=== PATIENT | male | born 1960 | race Asian ===

== ENCOUNTER 2021-01-01 09:17 | Outpatient (REF) | payer OTHER, SELFPAY ==
[2021-01-01 10:22] LABS: Hematocrit 44.5 % (42-52); Mean Corpuscular HGB Conc 33.7 g/dl (31.0-36.0); Mean Corpuscular Hemoglobin 27.8 pg (27.0-33.0); Mean Corpuscular Volume 82.4 fL (80-98); Mean Platelet Volume 10.7 fL (9.4-12.4); Platelet Count 273 X10*3/uL (160-400); Red Cell Distribution Width 12.6 % (11.0-16.0); White Blood Count 7.6 X10*3/uL (4.8-10.8)
[2021-01-01 10:41] LABS: Alanine Aminotransferase 24 U/L (0-40); Albumin Level 4.5 g/dL (3.5-5.0); Alkaline Phosphatase 91 U/L (39-117); Anion Gap 11 (12-20); Aspartate Amino Transferase 20 U/L (5-37); Bilirubin Direct 0.4 mg/dL (0.0-0.5); Bilirubin Total 0.9 mg/dL (0.0-1.0); Blood Urea Nitrogen 14 mg/dL (9-16); Calcium 9.7 mg/dL (8.4-10.2); Carbon Dioxide 31 mmol/L (22-29); Chloride 98 mmol/L (96-108); Cholesterol 149 mg/dL; Estimated Glomerular Filt Rate > 60; Glucose Random 167 mg/dL (60-115); HDL Cholesterol 45 mg/dL; LDL Cholesterol Calculated 74 mg/dl; Sodium 136 mmol/L (135-145); Total Protein 7.4 g/dL (6.5-8.0); Triglycerides 154 mg/dL
[2021-01-01 11:02] LABS: Thyroid Stimulating Hormone 2.23 uIU/mL (0.32-4.0)
[2021-01-01 11:03] LABS: Glucose Urine UA NEG (NEG); Leukocyte Esterase Urine NEG (NEG); Nitrite Urine NEG (NEG); Specific Gravity - Urine 1.025 (1.005-1.025); Urine Blood NEG (NEG); Urine Ketones NEG (NEG); Urine Protein NEG (NEG-TRACE)
[2021-01-01 11:10] LABS: Appearance Urine CLEAR; Color Urine YELLOW
[2021-01-01 11:35] LABS: Creatinine Urine 170.37 mg/dL; Microalbum/Creatinine Ratio Ur 3.5 ug/mg cr
== END 2021-01-01 09:18 | disposition home or self-care (01) ==
LOC: HO.LAB 09:17
PROVIDERS: PCP Internal Medicine; Visit Provider Internal Medicine
DX: E11.9 Type 2 diabetes mellitus without complications (principal)
CPT/HCPCS: 36415; 80048; 80061; 80076; 81003; 82043; 84443; 85027

== ENCOUNTER 2021-01-23 08:01 | Outpatient (REF) | payer OTHER, SELFPAY ==
[2021-01-23 10:13] LABS: Alanine Aminotransferase 23 U/L (0-40); Aspartate Amino Transferase 19 U/L (5-37); Cholesterol 123 mg/dL; HDL Cholesterol 43 mg/dL; LDL Cholesterol Calculated 55 mg/dl; Triglycerides 128 mg/dL
== END 2021-01-23 08:02 | disposition home or self-care (01) ==
LOC: HO.LAB 08:01
PROVIDERS: PCP Internal Medicine; Visit Provider Internal Medicine Cardiovascular Disease
DX: I25.10 Atherosclerotic heart disease of native coronary artery without angina pectoris (principal)
CPT/HCPCS: 36415; 80061; 84450; 84460

== ENCOUNTER 2022-02-09 10:42 | Outpatient (REF) | payer OTHER, SELFPAY ==
[2022-02-09 11:22] LABS: Hematocrit 44.8 % (42.0-52.0); Hemoglobin 14.8 g/dl (14.0-18.0); Mean Corpuscular Hemoglobin 27.6 pg (27.0-33.0); Mean Corpuscular Volume 83.6 fL (80.0-98.0); Mean Platelet Volume 10.2 fL (9.4-12.4); Platelet Count 245 X10*3/uL (160-400); Red Blood Count 5.36 X10*6/uL (4.60-5.80); Red Cell Distribution Width 13.1 % (11.0-16.0); White Blood Count 5.8 X10*3/uL (4.8-10.8)
[2022-02-09 11:25] LABS: Appearance Urine CLEAR; Color Urine YELLOW; Glucose Urine UA 500 MG/DL (NEG); Leukocyte Esterase Urine NEG (NEG); Nitrite Urine NEG (NEG); PH 6.5 (5.0-8.0); Specific Gravity - Urine 1.015 (1.005-1.025); Urine Blood NEG (NEG); Urine Ketones NEG (NEG); Urine Protein NEG (NEG-TRACE)
[2022-02-09 11:38] LABS: Estimated Average Glucose 157 mg/dL; Hemoglobin A1c % 7.1 %
[2022-02-09 11:58] LABS: Creatinine Urine 104.59 mg/dL; Microalbumin Urine < 5.0 mg/L
[2022-02-09 12:12] LABS: Alanine Aminotransferase 32 U/L (0-40); Albumin Level 4.4 g/dL (3.5-5.0); Alkaline Phosphatase 81 U/L (39-117); Anion Gap 9 (12-20); Aspartate Amino Transferase 29 U/L (5-37); Bilirubin Direct 0.3 mg/dL (0.0-0.5); Bilirubin Total 0.7 mg/dL (0.0-1.0); Blood Urea Nitrogen 16 mg/dL (9-16); Calcium 9.1 mg/dL (8.4-10.2); Carbon Dioxide 31 mmol/L (22-29); Chloride 101 mmol/L (96-108); Cholesterol 160 mg/dL; Estimated Glomerular Filt Rate > 60; Glucose Random 134 mg/dL (60-115); HDL Cholesterol 34 mg/dL; LDL Cholesterol Calculated 98 mg/dl; Potassium 4.1 mmol/L (3.3-5.1); Sodium 137 mmol/L (135-145); Total Protein 7.3 g/dL (6.5-8.0); Triglycerides 143 mg/dL
[2022-02-09 12:17] LABS: Thyroid Stimulating Hormone 1.28 uIU/mL (0.32-4.0)
== END 2022-02-09 10:43 | disposition home or self-care (01) ==
LOC: HO.LAB 10:42
PROVIDERS: PCP Internal Medicine; Visit Provider Internal Medicine
DX: Z00.00 Encounter for general adult medical examination without abnormal findings (principal); E78.00 Pure hypercholesterolemia, unspecified; F33.2 Major depressive disorder, recurrent severe without psychotic features; I10 Essential (primary) hypertension; E11.9 Type 2 diabetes mellitus without complications
CPT/HCPCS: 36415; 80048; 80061; 80076; 81003; 82043; 83036; 84443; 85027

== ENCOUNTER → 2022-04-15 09:04 | Outpatient (BNVA) | payer OTHER, SELFPAY | PROVIDERS: PCP Internal Medicine; Visit Provider Nurse Practitioner | DX: Z01.818 Encounter for other preprocedural examination (principal) | CPT/HCPCS: 99202 ==

== ENCOUNTER 2022-08-17 10:35 | Outpatient (REF) | payer OTHER, SELFPAY ==
[2022-08-17 11:45] LABS: Hematocrit 46.5 % (42.0-52.0); Hemoglobin 15.6 g/dl (14.0-18.0); Mean Corpuscular HGB Conc 33.5 g/dl (31.0-36.0); Mean Corpuscular Hemoglobin 28.3 pg (27.0-33.0); Mean Corpuscular Volume 84.4 fL (80.0-98.0); Platelet Count 264 X10*3/uL (160-400); Red Blood Count 5.51 X10*6/uL (4.60-5.80); Red Cell Distribution Width 12.6 % (11.0-16.0); White Blood Count 6.7 X10*3/uL (4.8-10.8)
[2022-08-17 12:22] LABS: Creatinine Urine 18.84 mg/dL; Microalbumin Urine < 5.0 mg/L
[2022-08-17 12:37] LABS: Alanine Aminotransferase 31 U/L (0-40); Albumin Level 4.5 g/dL (3.5-5.0); Alkaline Phosphatase 88 U/L (39-117); Anion Gap 11 (12-20); Aspartate Amino Transferase 25 U/L (5-37); Bilirubin Direct 0.4 mg/dL (0.0-0.5); Bilirubin Total 0.9 mg/dL (0.0-1.0); Blood Urea Nitrogen 15 mg/dL (9-16); Calcium 9.3 mg/dL (8.4-10.2); Carbon Dioxide 31 mmol/L (22-29); Chloride 99 mmol/L (96-108); Cholesterol 164 mg/dL; Estimated Glomerular Filt Rate > 60; Glucose Random 238 mg/dL (60-115); HDL Cholesterol 43 mg/dL; LDL Cholesterol Calculated 89 mg/dl; Sodium 137 mmol/L (135-145); Total Protein 7.4 g/dL (6.5-8.0); Triglycerides 163 mg/dL
[2022-08-17 13:00] LABS: Thyroid Stimulating Hormone 1.69 uIU/mL (0.32-4.0)
== END 2022-08-17 10:36 | disposition home or self-care (01) ==
LOC: HO.LAB 10:35
PROVIDERS: PCP Internal Medicine; Visit Provider Internal Medicine
DX: I10 Essential (primary) hypertension (principal); E11.9 Type 2 diabetes mellitus without complications
CPT/HCPCS: 36415; 80048; 80061; 80076; 82043; 84443; 85027

== ENCOUNTER 2022-08-19 08:49 | Day surgery (SDC) | payer OTHER, SELFPAY ==
[2022-08-17 11:10] VITALS: BMI 26.6
--- NOTE | 2022-08-18 08:53 | HO.ANESPROP2 ---
Documented by User: Wilma Vargas NP 08/18/22 13:26 HPI - Anesthesia Eval Consult details Narrative: 61yo M for Colonoscopy Recent [facility] ED visit with headache and elevated BP. Seen by PCP and increased valsartan. Hx cardiac stent - plavix a couple years ago , pending note from [facility] Active Problems Active Problems: All Active Problems (Updated 06/27/22 @ 07:45 by Luis Pitts MD) Erectile dysfunction (Acute) Pre-op examination (Acute) Endogenous depression (Acute) Annual physical exam (Acute) GERD (gastroesophageal reflux disease) (Acute) Borderline hypercholesterolemia (Acute) Essential (primary) hypertension (Acute) Diabetes mellitus (Acute) Coronary artery disease (Acute) Past Medical History Medical History Annual physical exam Borderline hypercholesterolemia Coronary artery disease Diabetes mellitus Essential (primary) hypertension GERD (gastroesophageal reflux disease) Family History Family History Mother No problems noted. Father No problems noted. Surgical History Surgical History (Updated 08/19/22 @ 10:36 by Patricia Oakes MD) H/O hernia repair History of heart artery stent Social History Social History Housing: House Alcohol intake: never Patient Tobacco Use Status: Never used Tobacco e-Cigarette/Vaping Use: Never Used Second Hand Smoke Exposure: No Use of substances other than those prescribed or required for medical reasons: No Are you DNR?: No Advance Directives: No Advance Directives Information Provided: Yes service: No Current occupational status: unemployed Cognitive needs: No Hearing needs: No Vision needs: No Meds Allergies Allergy/AdvReac Type Severity Reaction Status Date / Time No Known Allergies Allergy Verified 08/05/22 14:01 Home Medications Medication Instructions Recorded Confirmed Last Taken Type blood sugar diagnostic (FreeStyle #10 ea 04/15/22 Unknown History Lite Strips) lancets 28 gauge (FreeStyle #100 ea 04/15/22 Unknown History Lancets) nitroglycerin 0.3 mg sublingual 0.3 mg sublingual DIRECTED PRN 04/15/22 08/19/22 Unknown History tablet Chest Pain Exam Exam Date and Time: August 18, 2022 0853 Height,Weight and Vital Signs: Height 5 ft 6 in Weight 74.843 kg Narrative Narrative: Laboratory Tests 08/17/22 08/17/22 10:51 10:51 WBC 6.7 Hgb 15.6 Hct 46.5 Plt Count 264 Sodium 137 Potassium 4.0 Chloride 99 Carbon Dioxide 31 H BUN 15 Creatinine 1.03 EKG 2020 NSR LAD Incomplete RBBB Septal infarct Assessment and Plan Assessment Anesthesia Assessment: Chart Reviewed Documented by User: Patricia Oakes MD 08/19/22 11:05 HPI - Anesthesia Eval Consult details Narrative: 61yo M for Colonoscopy Recent [facility] ED visit with headache and elevated BP. Seen by PCP and increased valsartan. functional status more than 4 mets Hx cardiac stent - plavix a couple years ago , pending note from [facility] Active Problems Active Problems: All Active Problems (Updated 06/27/22 @ 07:45 by Luis Pitts MD) Erectile dysfunction (Acute) Pre-op examination (Acute) Endogenous depression (Acute) Annual physical exam (Acute) GERD (gastroesophageal reflux disease) (Acute) Borderline hypercholesterolemia (Acute) Essential (primary) hypertension (Acute) Diabetes mellitus (Acute) Coronary artery disease (Acute). Stent x1 and againx1 2 years ago. On plavix. Did not stop. Never used SL NTG. H/o silent PA Past Medical History Medical History Annual physical exam Borderline hypercholesterolemia Coronary artery disease Diabetes mellitus Essential (primary) hypertension GERD (gastroesophageal reflux disease) Family History Family History Mother No problems noted. Father No problems noted. Family history of problems with anesthesia: No Surgical History Surgical History (Updated 08/19/22 @ 10:36 by Patricia Oakes MD) H/O hernia repair History of heart artery stent History of Problems with Anesthesia: No Social History Social History Housing: House Alcohol intake: never Patient Tobacco Use Status: Never used Tobacco e-Cigarette/Vaping Use: Never Used Second Hand Smoke Exposure: No Use of substances other than those prescribed or required for medical reasons: No Are you DNR?: No Advance Directives: No Advance Directives Information Provided: Yes service: No Current occupational status: unemployed Cognitive needs: No Hearing needs: No Vision needs: No Meds Allergies Allergy/AdvReac Type Severity Reaction Status Date / Time No Known Allergies Allergy Verified 08/05/22 14:01 Home Medications Medication Instructions Recorded Confirmed Last Taken Type blood sugar diagnostic (FreeStyle #10 ea 04/15/22 Unknown History Lite Strips) lancets 28 gauge (FreeStyle #100 ea 04/15/22 Unknown History Lancets) nitroglycerin 0.3 mg sublingual 0.3 mg sublingual DIRECTED PRN 04/15/22 08/19/22 Unknown History tablet Chest Pain Exam Height,Weight and Vital Signs: Height 5 ft 6 in Weight 74.843 kg Vital Signs Temp Pulse Resp BP Pulse Ox O2 Del Method 08/19/22 09:42 97.6 F 88 16 164/99 H 97 Room Air Pertinent Lab Results Pertinent Lab Results: Lab Results 08/19/22 Range/Units 09:54 POC Glucose 148 H (60-115) mg/dL Airway Mallampati Class: III TM Dist: >3cm Neck ROM: Full Loose/Missing/Broken Teeth: No (Permanent bridge. Denies broken, loose, missing teeth) Heart: RRR Lungs: CTAB Assessment and Plan Assessment Anesthesia Assessment: Anesthesia Plan Discussed Final Anesthetic Review Family History of Problems with Anesthesia: No History of Problems with Anesthesia: No NPO: Yes ASA Class: III Final Preanesthetic Review: No Changes in Pt Med Stat, Meds/Allgs Chart Reviewed, Consent Obtained/Reviewed and Anes Risks/Benef Reviewed Patient Risk: Intermediate Procedure Risk: Low Assessment/Block/Sedation in SS: Assess/Block/Sedation-SS Anesthetic Plan Anesthetic Plan: MAC: Disposition: Standard PACU
[2022-08-19 09:17] VITALS: BMI 26.9
--- NOTE | 2022-08-19 09:18 | P.OP_ITS ---
Operative Note Operative Note Date of Service: 08/19/22 Narrative: Operative Information Procedure Description: Colonoscopy Indication: screening Anesthesia: MAC COLONOSCOPY Instrument: Olympus variable stiffness pediatric scope 190L Colonoscopy Monitoring: Vital signs and clinical assessment, continuous EKG monitoring, Pulse oximetry, Carbon Dioxide monitoring and blood pressure monitoring were done throughout the procedure. Colon withdrawal time was 7 minutes. Procedure: The patient was placed in the left lateral decubitis position and pre-procedure medications were administered. After a digital rectal examination of the ano-rectum, the video colonoscope was inserted into the rectum and advanced through the colon to the cecum/TI. The colonoscope was slowly withdrawn in a retrograde panoramic fashion and the colon mucosa was carefully examined including a retroflexed view of the rectum. Findings and interventions are described below. Procedure Difficulty: easy Findings: Terminal Ileum-normal Cecum:normal Ascending Colon: normal Transverse Colon -normal Descending Colon:normal Sigmoid Colon: normal Rectum: Retroflexion with small internal hemorrhoids, grade I Anorectum - normal Colon preparation: [place] Bowel Preparation Scale Right colon; 2 Transverse colon: 3 Left colon; 3 (0 = Unprepared colon segment with mucosa not seen due to solid stool that cannot be cleared. 1 = Portion of mucosa of the colon segment seen, but other areas of the colon segment not well seen due to staining, residual stool and/or opaque liquid. 2 = Minor amount of residual staining, small fragments of stool and/or opaque liquid, but mucosa of colon segment seen well. 3 = Entire mucosa of colon segment seen well with no residual staining, small fragments of stool or opaque liquid) Impression and Post Procedure Diagnosis: internal hemorrhoids Plan: High fiber diet leaflet Avoid straining at stool, epsom salts and sitz bath, anusol supps or cream Repeat Colonoscopy in 10 years or earlier if clinically indicated Above findings were reviewed with the patient and relevant handouts were provided if indicated.
--- NOTE | 2022-08-19 09:18 | MHC.SHP ---
Pre-Procedural Eval Section A Date of Service: 08/19/22 Section B Chief Complaint: screening Relevant Family History (Specify if Yes): No Relevant Social History: None Present Medications: see Short Stay Collaborative assessment Medical History: Significant History (Borderline hypercholesterolemia Coronary artery disease Diabetes mellitus Essential (primary) hypertension GERD (gastroesophageal reflux disease)) History of Previous Operations: No relevant previous surgery Allergies: Allergies Allergy/AdvReac Type Severity Reaction Status Date / Time No Known Allergies Allergy Verified 08/05/22 14:01 Review of Systems Sugical H&P ROS: Negative: Constitution, Cardiovascular, Respiratory, Neurological, Psychiatric, Hem-Onc, Allergic/Immunologic, Gastrointestinal, Genitourinary, Musculoskeletal, Integumentary, Endocrine and Eyes/Ears/Nose/Throat Exam Surgical H&P Exam: Normal: HEENT, Normal: Heart, Normal: Lungs, Normal: Extremities, Normal: Abdomen, Normal: Skin and Normal: Neurological Plan Diagnosis/Plan: Unchanged I have reviewed the history and physical and performed a pertinent physical examination on my patient. No changes have occurred unless specified. Time Spent With Patient Time: Total time managing care of this patient today ____ minutes.
--- NOTE | 2022-08-19 09:24 | PC.NURSE ---
md escobar aware of patient taking plavix yesterday. ok to proceed.
[2022-08-19 09:42] VITALS: BP 164/99; PULSE 88; RESP 16; TEMP 36.4; O2SAT 97
[2022-08-19] MEDS: Lactated Ringers 1,000 ML 100 ML IVCONT (09:58)
[2022-08-19 10:02] LABS: Glucose, Whole Blood 148 mg/dL (60-115)
[2022-08-19 11:03] VITALS: BP 131/71; PULSE 74; RESP 18; TEMP 36.6; O2SAT 97
[2022-08-19 11:18] VITALS: BP 137/78; PULSE 71; RESP 16; O2SAT 97
[2022-08-19 11:33] VITALS: BP 163/89; PULSE 68; RESP 16; TEMP 36.6; O2SAT 95
== END 2022-08-19 12:04 | disposition home or self-care (01) ==
PROVIDERS: PCP Internal Medicine; Visit Provider Internal Medicine Gastroenterology
PROC: 0DJD8ZZ Inspection of Lower Intestinal Tract, Via Natural or Artificial Opening Endoscopic (ICD-10-PCS; CPT 45378; principal; 2022-08-19 10:20)
DX: Z12.11 Encounter for screening for malignant neoplasm of colon (principal); K64.0 First degree hemorrhoids; K21.9 Gastro-esophageal reflux disease without esophagitis; I25.10 Atherosclerotic heart disease of native coronary artery without angina pectoris; Z98.61 Coronary angioplasty status; I10 Essential (primary) hypertension; E78.00 Pure hypercholesterolemia, unspecified; E11.9 Type 2 diabetes mellitus without complications; Z79.84 Long term (current) use of oral hypoglycemic drugs; Z79.899 Other long term (current) drug therapy
CPT/HCPCS: 45378; 82947

== ENCOUNTER → 2022-09-14 10:02 | Outpatient (BNVA) | payer OTHER, SELFPAY | PROVIDERS: PCP Internal Medicine; Visit Provider Nurse Practitioner | DX: K64.8 Other hemorrhoids (principal); Z98.890 Other specified postprocedural states | CPT/HCPCS: 99212 ==

== ENCOUNTER 2022-11-15 09:13 | Outpatient (REF) | payer OTHER, SELFPAY ==
[2022-11-15 10:45] LABS: Estimated Average Glucose 163 mg/dL; Hemoglobin A1c % 7.3 %
== END 2022-11-15 09:14 | disposition home or self-care (01) ==
LOC: HO.LAB 09:13
PROVIDERS: PCP Internal Medicine; Visit Provider Internal Medicine
DX: E11.9 Type 2 diabetes mellitus without complications (principal)
CPT/HCPCS: 36415; 83036

== ENCOUNTER 2023-03-02 08:33 | Outpatient (AMB) | payer OTHER, SELFPAY ==
[2023-03-02 08:45] VITALS: BP 130/70; PULSE 71; O2SAT 94; BMI 27.3
--- NOTE | 2023-03-02 08:45 | A.OFFPC_ITS ---
Vital Signs 03/02/23 08:45 Height 5 ft 6 in Weight 169 lb BMI 27.3 BP 130/70 Blood Pressure Location Lt brachial Position Sitting Pulse 71 Pulse Source Pulse Oximeter Pulse Oximetry (%) 94 Oxygen Delivery Method Room Air Intake Visit Reasons: PE Intake Note: Patient is here today for a physical. Complaint of numbness on part of left knee, difficulty standing and walking, pain in left shoulder as well. Requesting medication refill. [employer] Pump Tender Required: Yes [employer] Pump Tender Name: Phil Bonilla (Son) Information Interpreted: non-clinical & clinical Deal Architect: Present Accompanied by: Son Allergies No Known Allergies Allergy (Verified 03/02/23 09:24) Medication List - Last Reconciled 03/02/23 by Luis Pitts MD atorvastatin 80 mg PO DAILY blood sugar diagnostic (FreeStyle Lite Strips) As directed blood-glucose meter (FreeStyle [place] kit) To be tested one time daily carvedilol 6.25 mg PO BID clopidogrel 75 mg PO DAILY duloxetine 30 mg PO DAILY gabapentin 300 mg PO TID glipizide 5 mg PO DAILY hydrochlorothiazide 25 mg PO DAILY lancets (FreeStyle Lancets) As directed metformin 500 mg PO BID multivitamin (Daily-Jesse tablet) 1 tab PO DAILY nitroglycerin 0.3 mg sublingual DIRECTED PRN pantoprazole 40 mg PO DAILY sitagliptin phosphate (Januvia) 100 mg PO DAILY valsartan 320 mg PO DAILY Tobacco use date assessed: 03/02/23 Dental Screening Dental Screen Date: 03/02/23 Did you have a dental visit in the last 12 months?: Yes Did you have a dental problem in the last 6 months where you did not have access to dental care?: No Was dental information given to patient?: Patient has dentist HPI PE HPI Details 62-year-old male presents to the office for an annual physical. In addition, patient has a variety of complaints. He has a burning sensation on the left knee. He reports that his knee locks at times. He has more increased burning sensation in the left leg. Occasionally, he is also bleeding for near the mouth. He wonders if it is the Plavix he is taking. Able to function and do activities of daily living. [facility] Medical History Annual physical exam Borderline hypercholesterolemia Coronary artery disease Diabetes mellitus Essential (primary) hypertension GERD (gastroesophageal reflux disease) Surgical History H/O hernia repair History of heart artery stent Family History Mother No problems noted. Father No problems noted. Social History Housing: House Alcohol intake: never Patient Tobacco Use Status: Never used Tobacco e-Cigarette/Vaping Use: Never Used Second Hand Smoke Exposure: No service: No Current occupational status: employed Current occupational exposures/hazards: No Cognitive needs: No Hearing needs: No Vision needs: No Questionnaire Thrive Questionnaire Date Thrive assessed: 10/20/22 JEANETTE-7 AMB Questionnaire JEANETTE-7 Date JEANETTE - 7 assessed: 10/20/22 Source: Developed by Drs. Ck Orantes, Darby Henderson, Maco Ken and colleagues, with an educational brock from [employer]. Physical exam (Primary Care) Vital Signs: Last Vital Signs Pulse 71 03/02/23 08:45 BP 130/70 03/02/23 08:45 Pulse Ox 94 03/02/23 08:45 Oxygen Delivery Method Room Air 03/02/23 08:45 Care Plan Goal for BP management: Blood pressure is in range. BMI result Body Mass Index 27.3 Tobacco/Smoking Status: Tobacco use Status Tobacco use date assessed 03/02/23 03/02/23 08:58 Patient Tobacco Use Status Never used Tobacco 03/02/23 08:58 e-Cigarette/Vaping Use Never Used 03/02/23 08:58 Thrive Assessment: Date of Thrive Assessment Date Thrive assessed 10/20/22 03/02/23 08:58 Advance Care Planning discussion: Exists, not on file Date of discussion: 03/02/23 Who was present: Patient and his son Forms completed: MOLST Time spent: 1-15 minutes, not on file Actual minutes spent: 5 Const General: cooperative, healthy appearing and comfortable HENMT Head: Yes normal to inspection and Yes atraumatic Eyes General: appearance normal, both eyes and all related structures Neck Neck: Yes normal visual inspection and Yes full ROM Chest Chest palpation & inspection: normal inspection of the chest Resp Effort & Inspection: normal respiratory effort Auscultation: clear to auscultation bilaterally Cardio Jugular venous distension: no JVD Palpation: normal PMI Rate: regular rate Heart sounds: S1 normal heart sound present and S2 normal heart sound present GI Palpation (GI): Soft to palpation and No hepatosplenomegaly present Extrem General: Yes normal to inspection and Yes full ROM Results AMB Hemoglobin A1c AMB Hemoglobin A1c 6.9 % Last Edit by MARCEL Lao on 03/02/23 08:58 Results Reviewed Results Reviewed: Laboratory Last Values Hgb A1c (Clinic) 6.9 % (4.0-6.0) H 03/02/23 08:44 Assessment and Plan Assessment & Plan (1) Endogenous depression: Code(s): F33.2 - Major depressive disorder, recurrent severe without psychotic features Plan: Condition is stable continue current medications. (2) Diabetes mellitus: Code(s): E11.9 - Type 2 diabetes mellitus without complications Qualifiers: Diabetes mellitus complication status: without complication Diabetes mellitus prison insulin use: without superintendent container terminal use Diabetes mellitus type: type 2 Qualified Code(s): E11.9 - Type 2 diabetes mellitus without complications Plan: Point A1c is in range. Blood work has been ordered. (3) Essential (primary) hypertension: Code(s): I10 - Essential (primary) hypertension Plan: Blood pressure is in range. Continue current medications. (4) Osteoarthritis of left knee: Code(s): M17.12 - Unilateral primary osteoarthritis, left knee Plan: X-ray of the knee ordered. Will call with results. (5) Gingivitis: Code(s): K05.10 - Chronic gingivitis, plaque induced Plan: Continue the Plavix. Orders: Orders Basic Metabolic Panel Today E11.9 - Type 2 diabetes mellitus without complications, F33.2 - Major depressive disorder, recurrent severe without psychotic features, I10 - Essential (primary) hypertension Lipid Panel Today E11.9 - Type 2 diabetes mellitus without complications, F33.2 - Major depressive disorder, recurrent severe without psychotic features, I10 - Essential (primary) hypertension Liver Panel Today E11.9 - Type 2 diabetes mellitus without complications, F33.2 - Major depressive disorder, recurrent severe without psychotic features, I10 - Essential (primary) hypertension Thyroid Stimulating Hormone Today E11.9 - Type 2 diabetes mellitus without complications, F33.2 - Major depressive disorder, recurrent severe without psychotic features, I10 - Essential (primary) hypertension Microalbumin, Random (w Creat) Today E11.9 - Type 2 diabetes mellitus without complications, F33.2 - Major depressive disorder, recurrent severe without psychotic features, I10 - Essential (primary) hypertension Complete Blood Count no Diff Today E11.9 - Type 2 diabetes mellitus without complications, F33.2 - Major depressive disorder, recurrent severe without psychotic features, I10 - Essential (primary) hypertension UA and rflx microscopic Today E11.9 - Type 2 diabetes mellitus without complications, F33.2 - Major depressive disorder, recurrent severe without psychotic features, I10 - Essential (primary) hypertension Medications: Refilled hydrochlorothiazide 25 mg PO DAILY 90 tabs 1RF Coding Level of Care Code Est Pt Level 4 (90833) Est Pt Prev Care 40-64y(73518) Diagnoses Endogenous depression F33.2 Diabetes mellitus E11.9 Diabetes mellitus complication status: without complication Diabetes mellitus prison insulin use: without superintendent container terminal use Diabetes mellitus type: type 2 Essential (primary) hypertension I10 Osteoarthritis of left knee M17.12 Gingivitis K05.10 Additional Codes Vital Signs *Quality* - Advance Care Planning discussion: Exists, not on file ([id number]) Vital Signs *Quality* - Time spent: 1-15 minutes, not on file ([id number])
== END 2023-03-02 09:19 | disposition home or self-care (01) ==
PROVIDERS: Visit Provider Internal Medicine
DX: Z00.00 Encounter for general adult medical examination without abnormal findings (principal); F33.2 Major depressive disorder, recurrent severe without psychotic features; E11.9 Type 2 diabetes mellitus without complications; I10 Essential (primary) hypertension; M17.12 Unilateral primary osteoarthritis, left knee; K05.10 Chronic gingivitis, plaque induced
CPT/HCPCS: 1124F; 83036; 99396

== ENCOUNTER 2023-03-08 07:56 | Outpatient (REF) | payer OTHER, SELFPAY ==
[2023-03-08 08:53] LABS: Hematocrit 45.4 % (42.0-52.0); Hemoglobin 15.2 g/dl (14.0-18.0); Mean Corpuscular HGB Conc 33.5 g/dl (31.0-36.0); Mean Corpuscular Volume 83.6 fL (80.0-98.0); Mean Platelet Volume 10.3 fL (9.4-12.4); Platelet Count 256 X10*3/uL (160-400); Red Blood Count 5.43 X10*6/uL (4.60-5.80); Red Cell Distribution Width 12.9 % (11.0-16.0); White Blood Count 7.6 X10*3/uL (4.8-10.8)
[2023-03-08 09:31] LABS: Alanine Aminotransferase 29 U/L (0-40); Albumin Level 4.1 g/dL (3.5-5.0); Alkaline Phosphatase 87 U/L (39-117); Anion Gap 9 (12-20); Aspartate Amino Transferase 25 U/L (5-37); Bilirubin Direct 0.3 mg/dL (0.0-0.5); Bilirubin Total 0.7 mg/dL (0.0-1.0); Blood Urea Nitrogen 13 mg/dL (9-16); Calcium 8.9 mg/dL (8.4-10.2); Carbon Dioxide 30 mmol/L (22-29); Chloride 103 mmol/L (96-108); Cholesterol 144 mg/dL; Estimated Glomerular Filt Rate > 60; Glucose Random 157 mg/dL (60-115); HDL Cholesterol 41 mg/dL; LDL Cholesterol Calculated 61 mg/dl; Potassium 3.7 mmol/L (3.3-5.1); Sodium 138 mmol/L (135-145); Total Protein 7.1 g/dL (6.5-8.0); Triglycerides 213 mg/dL
[2023-03-08 09:46] LABS: Thyroid Stimulating Hormone 1.46 uIU/mL (0.32-4.0)
[2023-03-08 10:48] LABS: Appearance Urine Clear; Color Urine Yellow; Glucose Urine UA Negative (Negative); Leukocyte Esterase Urine Negative (Negative); Nitrite Urine Negative (Negative); Urine Blood Negative (Negative); Urine Ketones Negative (Negative); Urine Protein Negative (Neg-Trace)
[2023-03-08 11:46] LABS: Creatinine Urine 89.16 mg/dL; Microalbumin Urine < 5.0 mg/L
== END 2023-03-08 07:57 | disposition home or self-care (01) ==
LOC: HO.LAB 07:56
PROVIDERS: PCP Internal Medicine; Visit Provider Internal Medicine
DX: E11.9 Type 2 diabetes mellitus without complications (principal); F33.2 Major depressive disorder, recurrent severe without psychotic features; I10 Essential (primary) hypertension
CPT/HCPCS: 36415; 80048; 80061; 80076; 81003; 82043; 84443; 85027

== ENCOUNTER 2023-03-24 07:58 | Outpatient (AMB) | payer OTHER, SELFPAY ==
[2023-03-24 07:59] VITALS: BP 148/78; PULSE 83; O2SAT 97; BMI 27.4
--- NOTE | 2023-03-24 07:59 | A.OFFPC_ITS ---
Vital Signs 03/24/23 07:59 Height 5 ft 6 in Weight 170 lb BMI 27.4 BP 148/78 H Blood Pressure Location Lt brachial Position Sitting Pulse 83 Pulse Source Pulse Oximeter Pulse Oximetry (%) 97 Oxygen Delivery Method Room Air Intake Visit Reasons: Heart Surgery Discuss Allergies No Known Allergies Allergy (Verified 03/24/23 08:27) Medication List - Last Reconciled 03/24/23 by Luis Pitts MD atorvastatin 80 mg PO DAILY blood sugar diagnostic (FreeStyle Lite Strips) As directed blood-glucose meter (FreeStyle [place] kit) To be tested one time daily carvedilol 6.25 mg PO BID clopidogrel 75 mg PO DAILY duloxetine 30 mg PO DAILY gabapentin 300 mg PO TID glipizide 5 mg PO DAILY hydrochlorothiazide 25 mg PO DAILY lancets (FreeStyle Lancets) As directed metformin 500 mg PO BID multivitamin (Daily-Jesse tablet) 1 tab PO DAILY nitroglycerin 0.3 mg sublingual DIRECTED PRN pantoprazole 40 mg PO DAILY sitagliptin phosphate (Januvia) 100 mg PO DAILY valsartan 320 mg PO DAILY Tobacco use date assessed: 03/02/23 Dental Screening Dental Screen Date: 03/24/23 Did you have a dental visit in the last 12 months?: No Did you have a dental problem in the last 6 months where you did not have access to dental care?: No Was dental information given to patient?: Patient has dentist HPI Heart Surgery Discuss HPI Details 62-year-old male presents to the office to discuss his medical issues. He made the appointment stating he wanted to discuss heart surgery. However when patient came here he has no complaints about the heart. He is complaining of pain in the left arm. The pain is constant and all the time. Pain is reproducible and gets worse on palpating the deltoid muscle. Patient is also looking for a cream to apply on his cracked heels and would like a medication for erectile dysfunction. [facility] Medical History Annual physical exam Borderline hypercholesterolemia Coronary artery disease Diabetes mellitus Essential (primary) hypertension GERD (gastroesophageal reflux disease) Surgical History H/O hernia repair History of heart artery stent Family History Mother No problems noted. Father No problems noted. Social History Housing: House Alcohol intake: never Patient Tobacco Use Status: Never used Tobacco e-Cigarette/Vaping Use: Never Used Second Hand Smoke Exposure: No service: No Current occupational status: employed Current occupational exposures/hazards: No Cognitive needs: No Hearing needs: No Vision needs: No Questionnaire PHQ-9 Over the last 2 weeks, how often have you been bothered by any of the following problems? 1. Little interest or pleasure in doing things: not at all 2. Feeling down, depressed, or hopeless: not at all 3. Trouble falling or staying asleep, or sleeping too much: not at all 4. Feeling tired or having little energy: not at all 5. Poor appetite or overeating: not at all 6. Feeling bad about yourself - or that you are a failure or have let yourself or your family down: not at all 7. Trouble concentrating on things, such as reading the newspaper or watching television: not at all 8. Moving or speaking so slowly that other people could have noticed. Or the opposite - being so fidgety or restless that you have been moving around a lot more than usual: not at all 9. Thoughts that you would be better off or of hurting yourself in some way: not at all Total score: 0 Depression Screening Interpretation: Negative Source: Developed by Drs. Ck Orantes, Darby Henderson, Maco Ken and colleagues, with an educational brock from [employer]. Thrive Questionnaire Date Thrive assessed: 10/20/22 AUDIT C Alcohol Use Questionnaire (AUDIT-C) 1. How often do you have a drink containing alcohol?: Never Total Score: 0 JEANETTE-7 AMB Questionnaire JEANETTE-7 Date JEANETTE - 7 assessed: 10/20/22 Source: Developed by Drs. Ck Orantes, Darby Henderson, Maco Ken and colleagues, with an educational brock from [employer]. Physical exam (Primary Care) Vital Signs: Last Vital Signs Pulse 83 03/24/23 07:59 BP 148/78 H 03/24/23 07:59 Pulse Ox 97 03/24/23 07:59 Oxygen Delivery Method Room Air 03/24/23 07:59 BMI result Body Mass Index 27.4 Tobacco/Smoking Status: Tobacco use Status Tobacco use date assessed 03/02/23 03/24/23 08:03 Patient Tobacco Use Status Never used Tobacco 03/24/23 08:03 e-Cigarette/Vaping Use Never Used 03/24/23 08:03 PHQ-9: PHQ-9 Score PHQ-9: Total score 0 03/24/23 08:03 Depression Screening Interpretation: Negative Thrive Assessment: Date of Thrive Assessment Date Thrive assessed 10/20/22 03/24/23 08:03 Const General: cooperative, healthy appearing and comfortable HENMT Head: Yes normal to inspection and Yes atraumatic Eyes General: appearance normal, both eyes and all related structures Neck Neck: Yes normal visual inspection and Yes full ROM Chest Chest palpation & inspection: normal inspection of the chest Resp Effort & Inspection: normal respiratory effort Auscultation: clear to auscultation bilaterally Cardio Jugular venous distension: no JVD Palpation: normal PMI Rate: regular rate Heart sounds: S1 normal heart sound present and S2 normal heart sound present GI Palpation (GI): Soft to palpation and No hepatosplenomegaly present Extrem General: Yes normal to inspection and Yes full ROM Assessment and Plan Assessment & Plan (1) Left arm pain: Code(s): M79.602 - Pain in left arm Plan: Pain is muscular in etiology. Patient was advised to take [id number] medication. Hydrocortisone cream has been prescribed for the feet. (2) Erectile dysfunction: Code(s): N52.9 - Male erectile dysfunction, unspecified Plan: Cialis has been prescribed. Coding Level of Care Code Est Pt Level 3 (36471) Diagnoses Left arm pain M79.602 Erectile dysfunction N52.9
== END 2023-03-24 10:08 | disposition home or self-care (01) ==
PROVIDERS: PCP Internal Medicine; Visit Provider Internal Medicine
DX: M79.602 Pain in left arm (principal); N52.9 Male erectile dysfunction, unspecified
CPT/HCPCS: 99213

== ENCOUNTER 2023-06-09 08:58 | Outpatient (AMB) | payer OTHER, SELFPAY ==
--- NOTE | 2023-06-09 09:12 | A.OFFPC_ITS ---
Vital Signs 06/09/23 09:13 06/09/23 09:25 Height 5 ft 6 in Weight 171 lb 2 oz BMI 27.6 BP 160/90 H 120/72 Blood Pressure Location Lt brachial Lt brachial Position Sitting Sitting Pulse 78 Pulse Source Pulse Oximeter Pulse Oximetry (%) 97 Oxygen Delivery Method Room Air Intake Visit Reasons: 3mth f/u Intake Note: Patient is here to follow up on DM, HTN, GERD. Supervisor Park Workers Required: No Senior Copywriter: Not Required per policy Accompanied by: Self / Same As Patient Allergies No Known Allergies Allergy (Verified 06/16/23 06:12) Medication List - Last Reconciled 06/16/23 by Luis Pitts MD aspirin 81 mg PO DAILY atorvastatin 80 mg PO DAILY blood sugar diagnostic (FreeStyle Lite Strips) As directed blood-glucose meter (FreeStyle [place] kit) To be tested one time daily carvedilol 6.25 mg PO BID clopidogrel 75 mg PO DAILY [diabetic shoes As directed] duloxetine 30 mg PO DAILY gabapentin 300 mg PO TID glipizide 5 mg PO DAILY hydrochlorothiazide 25 mg PO DAILY lancets (FreeStyle Lancets) As directed metformin 500 mg PO BID multivitamin (Daily-Jesse tablet) 1 tab PO DAILY nitroglycerin 0.3 mg sublingual DIRECTED PRN pantoprazole 40 mg PO DAILY sitagliptin phosphate (Januvia) 100 mg PO DAILY tadalafil (Cialis) 5 mg PO DAILY valsartan 320 mg PO DAILY Tobacco use date assessed: 06/09/23 HPI 3mth f/u HPI Details 62-year-old male presents to the office to discuss his chronic medical conditions. Patient had a cardiac ultrasound done yesterday. This was not done in the [facility] system. It was reported that his blood pressure was slightly elevated. He is compliant with all his medications. Patient is requesting a pair of diabetic shoes. [facility] Medical History Annual physical exam GERD (gastroesophageal reflux disease) Borderline hypercholesterolemia Essential (primary) hypertension Coronary artery disease Diabetes mellitus Surgical History H/O hernia repair History of heart artery stent Family History Mother No problems noted. Father No problems noted. Social History Housing: House Alcohol intake: never Patient Tobacco Use Status: Never used Tobacco e-Cigarette/Vaping Use: Never Used Second Hand Smoke Exposure: No service: No Current occupational status: employed Current occupational exposures/hazards: No Cognitive needs: No Hearing needs: No Vision needs: No Questionnaire Thrive Questionnaire Date Thrive assessed: 10/20/22 JEANETTE-7 AMB Questionnaire JEANETTE-7 Date JEANETTE - 7 assessed: 10/20/22 Source: Developed by Drs. Ck Orantes, Darby Henderson, Maco Ken and colleagues, with an educational brock from [employer]. Physical exam (Primary Care) Vital Signs: Last Vital Signs Pulse 78 06/09/23 09:13 BP 120/72 06/09/23 09:25 Pulse Ox 97 06/09/23 09:13 Oxygen Delivery Method Room Air 06/09/23 09:13 Care Plan Goal for BP management: Blood pressure is in range. Continue current medications BMI result Body Mass Index 27.6 Tobacco/Smoking Status: Tobacco use Status Tobacco use date assessed 06/09/23 06/09/23 09:25 Patient Tobacco Use Status Never used Tobacco 06/09/23 09:25 e-Cigarette/Vaping Use Never Used 06/09/23 09:25 Thrive Assessment: Date of Thrive Assessment Date Thrive assessed 10/20/22 06/09/23 09:25 Const General: cooperative and healthy appearing Nutritional Appearance: well nourished Orientation/consciousness: patient oriented x3 Limitations: no limitations HENMT Head: Yes normal to inspection Eyes General: appearance normal, both eyes and all related structures Neck Neck: Yes normal visual inspection Chest Chest palpation & inspection: normal palpation of entire chest wall Resp Effort & Inspection: normal respiratory effort Neuro General: patient oriented x3 Results AMB Hemoglobin A1c AMB Hemoglobin A1c 7.7 % Last Edit by MARCEL Lao on 06/09/23 09:29 Results Reviewed Results Reviewed: Laboratory Last Values Hgb A1c (Clinic) 7.7 % (4.0-6.0) H 06/09/23 09:12 Assessment and Plan Assessment & Plan (1) Borderline hypercholesterolemia: Code(s): E78.00 - Pure hypercholesterolemia, unspecified Plan: Continue statins at same dosage. (2) Diabetes mellitus: Code(s): E11.9 - Type 2 diabetes mellitus without complications Qualifiers: Diabetes mellitus type: type 2 Diabetes mellitus group home insulin use: without truck terminal manager use Diabetes mellitus complication status: without complication Qualified Code(s): E11.9 - Type 2 diabetes mellitus without complications Plan: A1c is elevated. Patient has promised increase compliance to his diet. Continue medications at same dosage. (3) Coronary artery disease: Code(s): I25.10 - Atherosclerotic heart disease of [place] coronary artery without angina pectoris Qualifiers: Coronary Disease-Associated Artery/Lesion type: due to calcified coronary lesion Qualified Code(s): I25.10 - Atherosclerotic heart disease of [place] coronary artery without angina pectoris; I25.84 - Coronary atherosclerosis due to calcified coronary lesion Plan: Patient was advised to follow-up with hand alterations tailor regarding his ultrasound results. Orders: Orders AMB Hemoglobin A1c 06/09/23 E11.9 - Type 2 diabetes mellitus without complications Medications: Refilled hydrochlorothiazide 25 mg PO DAILY 90 tabs 1RF Coding Level of Care Code Est Pt Level 4 (94156) Diagnoses Borderline hypercholesterolemia E78.00 Type 2 diabetes mellitus without complication, without long-term current use of insulin E11.9 Diabetes mellitus type: type 2 Diabetes mellitus truck terminal manager insulin use: without group home use Diabetes mellitus complication status: without complication Coronary artery disease due to calcified coronary lesion I25.10; I25.84 Coronary Disease-Associated Artery/Lesion type: due to calcified coronary lesion
[2023-06-09 09:13] VITALS: BP 160/90; PULSE 78; O2SAT 97; BMI 27.6
[2023-06-09 09:25] VITALS: BP 120/72
== END 2023-06-09 13:15 | disposition home or self-care (01) ==
PROVIDERS: PCP Internal Medicine; Visit Provider Internal Medicine
DX: E11.9 Type 2 diabetes mellitus without complications (principal)
CPT/HCPCS: 83036; 99214

== ENCOUNTER 2023-09-06 09:45 | Outpatient (AMB) | payer OTHER, SELFPAY ==
--- NOTE | 2023-09-06 09:56 | MHC.PC.OV ---
Vital Signs 09/06/23 09:58 Height 5 ft 6 in Weight 172 lb 6 oz BMI 27.8 BP 180/100 H Blood Pressure Location Lt brachial Position Sitting Pulse 87 Pulse Source Pulse Oximeter Pulse Oximetry (%) 94 Oxygen Delivery Method Room Air Intake Visit Reasons: [place]enz[place] 08/27/23 High Blood Pressure Intake Note: Patient is here to follow-up after a visit the emergency department at [facility] on 08/27/23. Requesting for medication refill and DM testing supplies Gas Plant Specialist Required: No Territory Supervisor: Not Required per policy Accompanied by: Self / Same As Patient Allergies No Known Allergies Allergy (Verified 09/06/23 09:57) Tobacco use date assessed: 09/06/23 Dental Screening Dental Screen Date: 09/06/23 Did you have a dental visit in the last 12 months?: No Did you have a dental problem in the last 6 months where you did not have access to dental care?: No Was dental information given to patient?: No HPI Valenzuela 08/27/23 High Blood Pressure HPI Details 62-year-old male presents to the office get his blood pressure checked. He has been having elevated blood pressure in the last week. He saw his seismograph operator helper who adjusted the medications. He does not recall what adjustments were made. The prescriptions from the seismograph operator helper office has also not been called in. Patient reports no symptoms of headache or blurred vision. No nausea or vomiting. [facility] Medical History Annual physical exam GERD (gastroesophageal reflux disease) Borderline hypercholesterolemia Essential (primary) hypertension Coronary artery disease Diabetes mellitus Surgical History H/O hernia repair History of heart artery stent Family History Mother No problems noted. Father No problems noted. Social History Housing: House Alcohol intake: never Patient Tobacco Use Status: Never used Tobacco e-Cigarette/Vaping Use: Never Used Second Hand Smoke Exposure: No service: No Current occupational status: employed Current occupational exposures/hazards: No Cognitive needs: No Hearing needs: No Vision needs: No Questionnaire PHQ-9 Over the last 2 weeks, how often have you been bothered by any of the following problems? 1. Little interest or pleasure in doing things: not at all 2. Feeling down, depressed, or hopeless: not at all 3. Trouble falling or staying asleep, or sleeping too much: not at all 4. Feeling tired or having little energy: not at all 5. Poor appetite or overeating: not at all 6. Feeling bad about yourself - or that you are a failure or have let yourself or your family down: not at all 7. Trouble concentrating on things, such as reading the newspaper or watching television: not at all 8. Moving or speaking so slowly that other people could have noticed. Or the opposite - being so fidgety or restless that you have been moving around a lot more than usual: not at all 9. Thoughts that you would be better off or of hurting yourself in some way: not at all Total score: 0 Depression Screening Interpretation: Negative Depression Screening Done: Yes Source: Developed by Drs. Ck Orantes, Darby Henderson, Maco Ken and colleagues, with an educational brock from [employer] Thrive Questionnaire Date Thrive assessed: 09/06/23 I am a: Patient What is your living situation today?: I have a steady place to live Within the past 12 months, did the food you bought not last and you didn't have the money to get more?: Never true Within the past 12 months, did you worry whether your food would run out before you got money to buy more?: Never true Do you have trouble paying for medicines?: No Do you have trouble getting transportation to medical appointments?: No Do you have trouble paying your heating and electricity bill?: No Do you have trouble taking care of your child, family member or friend?: No Do you have trouble with day-to-day activities such as bathing, preparing meals, shopping, managing finances, etc.?: No Are you currently unemployed and looking for a job?: No Are you interested in more education?: No Currently or been in a relationship where the following occur: no concerns reported THRIVE Score: 0 AUDIT C Alcohol Use Questionnaire (AUDIT-C) 1. How often do you have a drink containing alcohol?: Never Total Score: 0 JEANETTE-7 AMB Questionnaire JEANETTE-7 Date JEANETTE - 7 assessed: 09/06/23 Feeling nervous, anxious, or on edge: 0 = Not at all Not being able to stop or control worryin = Not at all Worrying too much about different things: 0 = Not at all Trouble relaxin = Not at all Being so restless that it is hard to sit still: 0 = Not at all Becoming easily annoyed or irritable: 0 = Not at all Feeling afraid as if something awful might happen: 0 = Not at all Total JEANETTE-7 score (0-4 normal; 5-9 mild; 10-14 moderate; 15-21 severe): 0 Source: Developed by Drs. Ck Orantes, Darby eHnderson, Maco Ken and colleagues, with an educational brock from [employer] Physical exam (Primary Care) Vital Signs: Last Vital Signs Pulse 87 09/06/23 09:58 BP 180/100 H 09/06/23 09:58 Pulse Ox 94 09/06/23 09:58 Oxygen Delivery Method Room Air 09/06/23 09:58 BMI result Body Mass Index 27.8 Tobacco/Smoking Status: Tobacco use Status Tobacco use date assessed 09/06/23 09/06/23 10:07 Patient Tobacco Use Status Never used Tobacco 09/06/23 10:07 e-Cigarette/Vaping Use Never Used 09/06/23 10:07 PHQ-9: PHQ-9 Score PHQ-9: Total score 0 09/06/23 10:14 Depression Screening Interpretation: Negative Thrive Assessment: Date of Thrive Assessment Date Thrive assessed 09/06/23 09/06/23 10:07 Currently or been in a relationship where the following occur: no concerns reported Const General: cooperative and healthy appearing Nutritional Appearance: well nourished Orientation/consciousness: patient oriented x3 Limitations: no limitations HENMT Head: Yes normal to inspection Eyes General: appearance normal, both eyes and all related structures Neck Neck: Yes normal visual inspection Chest Chest palpation & inspection: normal palpation of entire chest wall Resp Effort & Inspection: normal respiratory effort Neuro General: patient oriented x3 Assessment and Plan Assessment & Plan (1) Essential (primary) hypertension: Code(s): I10 - Essential (primary) hypertension Plan: Repeat blood pressure was 160/80. A call was placed to the seismograph operator helper office. They reported that carvedilol has been increased to 12.5 mg twice a day. Amlodipine to be continued at 5 mg once a day. Patient was instructed to go to the pharmacy and car pick up driver the modified dosage. Medications: New amlodipine 5 mg PO DAILY 30 tabs 0RF Changed From carvedilol 6.25 mg PO BID 180 tabs 1RF To carvedilol 12.5 mg (2 x 6.25 mg) PO BID 180 tabs 1RF Refilled nitroglycerin 0.3 mg sublingual DIRECTED PRN 14 tabs 0RF Chest Pain hydrochlorothiazide 25 mg PO DAILY 90 tabs 1RF blood-glucose meter (FreeStyle [place] kit) To be tested one time daily 1 ea 0RF E11.9 - Type 2 diabetes mellitus without complications tadalafil (Cialis) 5 mg PO DAILY 7 tabs 0RF Coding Level of Care Code Est Pt Level 3 (54063) Diagnoses Essential (primary) hypertension I10
[2023-09-06 09:58] VITALS: BP 180/100; PULSE 87; O2SAT 94; BMI 27.8
== END 2023-09-06 11:34 | disposition home or self-care (01) ==
PROVIDERS: PCP Internal Medicine; Visit Provider Internal Medicine
DX: I10 Essential (primary) hypertension (principal); E11.9 Type 2 diabetes mellitus without complications; Z79.899 Other long term (current) drug therapy
CPT/HCPCS: 99213

== ENCOUNTER 2024-03-08 09:14 | Outpatient (AMB) | payer OTHER, SELFPAY ==
--- NOTE | 2024-03-08 09:17 | MHC.PC.OV ---
Vital Signs 03/08/24 09:18 Height 5 ft 6 in Weight 168 lb 4 oz BMI 27.2 BP 120/70 Blood Pressure Location Lt brachial Position Sitting Pulse 83 Pulse Source Pulse Oximeter Pulse Oximetry (%) 97 Oxygen Delivery Method Room Air Intake Visit Reasons: Annual Exam- NEEDS A1C Intake Note: Patient is here today for a physical. [place]field Technician Required: Yes Turning Sander Operator: Present Accompanied by: Son Allergies No Known Allergies Allergy (Verified 03/08/24 09:17) Tobacco use date assessed: 03/08/24 Dental Screening Dental Screen Date: 09/06/23 HPI Annual Exam- NEEDS A1C HPI Details 63-year-old male presents to the office requesting an annual physical. In addition he wishes to discuss his diabetes. Patient has only been taking metformin once a day. He is not checking his blood sugars regularly. Reporting numbness in the feet. Vision is normal. Patient also would like to see a new diesel service technician. His current diesel service technician has closed his practice. [facility] Medical History Annual physical exam GERD (gastroesophageal reflux disease) Borderline hypercholesterolemia Essential (primary) hypertension Coronary artery disease Diabetes mellitus Surgical History H/O hernia repair History of heart artery stent Family History Mother No problems noted. Father No problems noted. Social History Housing: House Alcohol intake: never Patient Tobacco Use Status: Never used Tobacco e-Cigarette/Vaping Use: Never Used Second Hand Smoke Exposure: No service: No Current occupational status: employed Current occupational exposures/hazards: No Cognitive needs: No Hearing needs: No Vision needs: No Questionnaire Thrive Questionnaire Date Thrive assessed: 09/06/23 JEANETTE-7 AMB Questionnaire JEANETTE-7 Date JEANETTE - 7 assessed: 09/06/23 Source: Developed by Drs. Ck Orantes, Darby Henderson, Maco Ken and colleagues, with an educational brock from [employer]. Physical exam (Primary Care) Vital Signs: Last Vital Signs Pulse 83 03/08/24 09:18 BP 120/70 03/08/24 09:18 Pulse Ox 97 03/08/24 09:18 Oxygen Delivery Method Room Air 03/08/24 09:18 BMI result Body Mass Index 27.2 Tobacco/Smoking Status: Tobacco use Status Tobacco use date assessed 03/08/24 03/08/24 09:27 Patient Tobacco Use Status Never used Tobacco 03/08/24 09:27 e-Cigarette/Vaping Use Never Used 03/08/24 09:27 Thrive Assessment: Date of Thrive Assessment Date Thrive assessed 09/06/23 03/08/24 09:27 Const General: cooperative and healthy appearing Nutritional Appearance: well nourished Orientation/consciousness: patient oriented x3 Limitations: no limitations HENMT Head: Yes normal to inspection Eyes General: appearance normal, both eyes and all related structures Neck Neck: Yes normal visual inspection Chest Chest palpation & inspection: normal palpation of entire chest wall Resp Effort & Inspection: normal respiratory effort Neuro General: patient oriented x3 Results AMB Hemoglobin A1c AMB Hemoglobin A1c 8.5 % Last Edit by MARCEL Lao on 03/08/24 09:29 Results Reviewed Results Reviewed: Laboratory Last Values Hgb A1c (Clinic) 8.5 % (4.0-6.0) H 03/08/24 09:16 Assessment and Plan Assessment & Plan (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 Patient is tolerating the duloxetine well. (2) Diabetes mellitus: Code(s): E11.9 - Type 2 diabetes mellitus without complications Qualifiers: Diabetes mellitus type: type 2 Diabetes mellitus fdc insulin use: without intermediate manager use Diabetes mellitus complication status: without complication Qualified Code(s): E11.9 - Type 2 diabetes mellitus without complications Plan: A1c is progressively worsening. Patient was warned of the dangers of uncontrolled hyperglycemia. He has now agreed to take injectables. Trulicity and Jardiance has been added. Patient was advised to check his blood sugars every day at least twice. He was asked to record the fasting blood sugar and a blood sugar 2 hours after a big meal. He will bring in the log. (3) Coronary artery disease: Code(s): I25.10 - Atherosclerotic heart disease of [place] coronary artery without angina pectoris Qualifiers: Coronary Disease-Associated Artery/Lesion type: due to calcified coronary lesion Qualified Code(s): I25.10 - Atherosclerotic heart disease of [place] coronary artery without angina pectoris; I25.84 - Coronary atherosclerosis due to calcified coronary lesion Plan: Patient would like to establish with a new diesel service technician. A referral will be made. Orders: Orders AMB Hemoglobin A1c Today E11.9 - Type 2 diabetes mellitus without complications Referrals Cardiology Referral I25.10 - Atherosclerotic heart disease of [place] coronary artery without angina pectoris, I25.84 - Coronary atherosclerosis due to calcified coronary lesion Medications: New dulaglutide (Trulicity) 0.75 mg (0.5 mL) subcut QWEEK 2 mL 1RF empagliflozin (Jardiance) 25 mg PO DAILY 90 tabs 1RF Refilled multivitamin (Daily-Jesse tablet) 1 tab PO DAILY 90 tabs 1RF tadalafil (Cialis) 5 mg PO DAILY 7 tabs 0RF Coding Level of Care Code Est Pt Level 4 (26713) Est Pt Prev Care 40-64y(81241) Diagnoses Endogenous depression F33.2 Type 2 diabetes mellitus without complication, without long-term current use of insulin E11.9 Diabetes mellitus type: type 2 Diabetes mellitus intermediate manager insulin use: without fdc use Diabetes mellitus complication status: without complication Coronary artery disease due to calcified coronary lesion I25.10; I25.84 Coronary Disease-Associated Artery/Lesion type: due to calcified coronary lesion
[2024-03-08 09:18] VITALS: BP 120/70; PULSE 83; O2SAT 97; BMI 27.2
== END 2024-03-08 13:00 | disposition home or self-care (01) ==
PROVIDERS: PCP Internal Medicine; Visit Provider Internal Medicine
DX: Z00.00 Encounter for general adult medical examination without abnormal findings (principal); F33.2 Major depressive disorder, recurrent severe without psychotic features; E11.9 Type 2 diabetes mellitus without complications; I25.10 Atherosclerotic heart disease of native coronary artery without angina pectoris; I25.84 Coronary atherosclerosis due to calcified coronary lesion
CPT/HCPCS: 83036; 99214; 99396

== ENCOUNTER 2024-03-08 10:03 | Outpatient (REF) | payer OTHER, SELFPAY ==
[2024-03-08 11:42] LABS: Hematocrit 45.7 % (42.0-52.0); Hemoglobin 15.6 g/dl (14.0-18.0); Mean Corpuscular HGB Conc 34.1 g/dl (31.0-36.0); Mean Corpuscular Hemoglobin 28.7 pg (27.0-33.0); Mean Platelet Volume 10.2 fL (9.4-12.4); Platelet Count 312 X10*3/uL (160-400); Red Blood Count 5.44 X10*6/uL (4.60-5.80); Red Cell Distribution Width 12.7 % (11.0-16.0); White Blood Count 7.9 X10*3/uL (4.8-10.8)
[2024-03-08 11:46] LABS: Estimated Average Glucose 200 mg/dL; Hemoglobin A1c % 8.6 % (<6.0)
[2024-03-08 11:49] LABS: Appearance Urine Clear; Color Urine Yellow; Glucose Urine UA 500 mg/dL (Negative); Leukocyte Esterase Urine Negative (Negative); Nitrite Urine Negative (Negative); Specific Gravity - Urine 1.025 (1.005-1.025); Urine Blood Negative (Negative); Urine Ketones Negative (Negative); Urine Protein Negative (Neg-Trace)
[2024-03-08 12:33] LABS: Alanine Aminotransferase 28 U/L (0-40); Albumin Level 4.3 g/dL (3.5-5.0); Alkaline Phosphatase 98 U/L (39-117); Anion Gap 12 (12-20); Aspartate Amino Transferase 20 U/L (5-37); Bilirubin Direct 0.3 mg/dL (0.0-0.5); Blood Urea Nitrogen 12 mg/dL (9-16); Calcium 9.5 mg/dL (8.4-10.2); Carbon Dioxide 30 mmol/L (22-29); Chloride 100 mmol/L (96-108); Cholesterol 141 mg/dL (<200); Estimated Glomerular Filt Rate > 60; Glucose Random 216 mg/dL (60-115); HDL Cholesterol 42 mg/dL (>40); LDL Cholesterol Calculated 71 mg/dL (<100); Potassium 3.9 mmol/L (3.3-5.1); Sodium 138 mmol/L (135-145); Total Protein 7.5 g/dL (6.5-8.0); Triglycerides 144 mg/dL (<150)
[2024-03-08 12:43] LABS: Thyroid Stimulating Hormone 1.43 uIU/mL (0.32-4.0)
== END 2024-03-08 10:04 | disposition home or self-care (01) ==
LOC: HO.LAB 10:03
PROVIDERS: PCP Internal Medicine; Visit Provider Internal Medicine
DX: E11.9 Type 2 diabetes mellitus without complications (principal); F33.2 Major depressive disorder, recurrent severe without psychotic features
CPT/HCPCS: 36415; 80048; 80061; 80076; 81003; 83036; 84443; 85027

== ENCOUNTER 2024-04-12 08:29 | Outpatient (AMB) | payer OTHER, SELFPAY ==
--- NOTE | 2024-04-12 08:43 | A.OFFPC_ITS ---
Vital Signs 04/12/24 08:44 Height 5 ft 6 in Weight 164 lb BMI 26.5 BP 120/78 Blood Pressure Location Lt brachial Position Sitting Pulse 81 Pulse Source Pulse Oximeter Pulse Oximetry (%) 96 Oxygen Delivery Method Room Air Intake Visit Reasons: med reaction Intake Note: Patient is here to follow up on med review. Complaint of right knee pain on going for a week. Scrap Sawyer Required: Yes Manufacturing Technician: Present Accompanied by: Son Allergies No Known Allergies Allergy (Verified 04/12/24 09:32) Medication List - Last Reconciled 04/12/24 by Luis Pitts MD amlodipine 5 mg PO DAILY aspirin 81 mg PO DAILY atorvastatin 80 mg PO DAILY blood sugar diagnostic (FreeStyle Lite Strips) As directed blood-glucose meter (FreeStyle [place] kit) To be tested one time daily carvedilol 12.5 mg (2 x 6.25 mg) PO BID clopidogrel 75 mg PO DAILY [diabetic shoes As directed] dulaglutide (Trulicity) 0.75 mg (0.5 mL) subcut QWEEK duloxetine 30 mg PO DAILY empagliflozin (Jardiance) 25 mg PO DAILY gabapentin 300 mg PO TID glipizide 5 mg PO DAILY hydrochlorothiazide 25 mg PO DAILY lancets (FreeStyle Lancets) As directed metformin 500 mg PO BID multivitamin (Daily-Jesse tablet) 1 tab PO DAILY nitroglycerin 0.3 mg sublingual DIRECTED PRN pantoprazole 40 mg PO DAILY sitagliptin phosphate (Januvia) 100 mg PO DAILY tadalafil (Cialis) 5 mg PO DAILY valsartan 320 mg PO DAILY Tobacco use date assessed: 04/12/24 Dental Screening Dental Screen Date: 09/06/23 HPI med reaction HPI Details 63-year-old male presents to the office to discuss his chronic medical condition. Patient is accompanied by his son. In the last office visit due to his rising blood sugars, Trulicity and Jardiance was added to the medication regimen. Patient has tolerated the medication well. He has lost 5 lb since he started taking medication. Blood sugars have been down. Patient brings his glucometer for me to review the log. Since starting the new medications, patient has developed pain in the right knee. Symptoms are worse when he kneels down to pray. Able to walk and exercise. [facility] Medical History Annual physical exam GERD (gastroesophageal reflux disease) Borderline hypercholesterolemia Essential (primary) hypertension Coronary artery disease Diabetes mellitus Surgical History H/O hernia repair History of heart artery stent Family History Mother No problems noted. Father No problems noted. Social History Housing: House Alcohol intake: never Patient Tobacco Use Status: Never used Tobacco e-Cigarette/Vaping Use: Never Used Second Hand Smoke Exposure: No service: No Current occupational status: employed Current occupational exposures/hazards: No Cognitive needs: No Hearing needs: No Vision needs: No Questionnaire Thrive Questionnaire Date Thrive assessed: 09/06/23 JEANETTE-7 AMB Questionnaire JEANETTE-7 Date JEANETTE - 7 assessed: 09/06/23 Source: Developed by Drs. Ck Orantes, Darby Henderson, Maco Ken and colleagues, with an educational brock from [employer]. Physical exam (Primary Care) Vital Signs: Last Vital Signs Pulse 81 04/12/24 08:44 BP 120/78 04/12/24 08:44 Pulse Ox 96 04/12/24 08:44 Oxygen Delivery Method Room Air 04/12/24 08:44 BMI result Body Mass Index 26.5 Tobacco/Smoking Status: Tobacco use Status Tobacco use date assessed 04/12/24 04/12/24 08:49 Patient Tobacco Use Status Never used Tobacco 04/12/24 08:43 e-Cigarette/Vaping Use Never Used 04/12/24 08:43 Thrive Assessment: Date of Thrive Assessment Date Thrive assessed 09/06/23 04/12/24 08:43 Const General: cooperative and healthy appearing Nutritional Appearance: well nourished Orientation/consciousness: patient oriented x3 Limitations: no limitations HENMT Head: Yes normal to inspection Eyes General: appearance normal, both eyes and all related structures Neck Neck: Yes normal visual inspection Chest Chest palpation & inspection: normal palpation of entire chest wall Resp Effort & Inspection: normal respiratory effort Neuro General: patient oriented x3 Extrem Other: Knee: No joint line tenderness. Pain on flexion. Assessment and Plan Assessment & Plan (1) Diabetes mellitus: Code(s): E11.9 - Type 2 diabetes mellitus without complications Qualifiers: Diabetes mellitus type: type 2 Diabetes mellitus long term care pharmacist insulin use: without long-term use Diabetes mellitus complication status: without complication Qualified Code(s): E11.9 - Type 2 diabetes mellitus without complications Plan: Encourage patient to continue taking Jardiance and Trulicity. The weight loss his part of the medications. Metformin has been reduced to 3 tablets in a day. Januvia has been discontinued. (2) Right knee sprain: Code(s): S83.91XA - Sprain of unspecified site of right knee, initial encounter Plan: Symptoms of the knee pain are not a side effect of the medication. Patient was reassured. Coding Level of Care Code Est Pt Level 4 (73615) Complex EM visit Add On G2211 Diagnoses Type 2 diabetes mellitus without complication, without long-term current use of insulin E11.9 Diabetes mellitus type: type 2 Diabetes mellitus long term care pharmacist insulin use: without long-term use Diabetes mellitus complication status: without complication Right knee sprain S83.91XA
[2024-04-12 08:44] VITALS: BP 120/78; PULSE 81; O2SAT 96; BMI 26.5
== END 2024-04-12 09:21 | disposition home or self-care (01) ==
PROVIDERS: PCP Internal Medicine; Visit Provider Internal Medicine
DX: E11.9 Type 2 diabetes mellitus without complications (principal); S83.91XA Sprain of unspecified site of right knee, initial encounter
CPT/HCPCS: 99214; G2211

== ENCOUNTER 2024-06-18 14:49 | Outpatient (AMB) | payer OTHER, SELFPAY ==
--- NOTE | 2024-06-18 15:01 | MHC.PC.OV ---
Vital Signs 06/18/24 15:02 Height 5 ft 6 in Weight 166 lb BMI 26.8 BP 122/66 Blood Pressure Location Rt brachial Position Sitting Pulse 85 Pulse Source Pulse Oximeter Pulse Oximetry (%) 95 Oxygen Delivery Method Room Air Intake Visit Reasons: 3 month f/u Intake Note: Patient is here to follow up on HTN, DM. Checker Cashier Required: No Storage Receipt Poster: Not Required per policy Accompanied by: Self / Same As Patient Allergies No Known Allergies Allergy (Verified 06/19/24 05:02) Medication List - Last Reconciled 06/19/24 by Luis Pitts MD amlodipine 5 mg PO DAILY aspirin 81 mg PO DAILY atorvastatin 80 mg PO DAILY blood sugar diagnostic (FreeStyle Lite Strips) As directed blood-glucose meter (FreeStyle [place] kit) To be tested one time daily carvedilol 12.5 mg (2 x 6.25 mg) PO BID clopidogrel 75 mg PO DAILY [diabetic shoes As directed] dulaglutide (Trulicity) 0.75 mg (0.5 mL) subcut QWEEK duloxetine 30 mg PO DAILY empagliflozin (Jardiance) 25 mg PO DAILY gabapentin 300 mg PO TID glipizide 5 mg PO DAILY hydrochlorothiazide 25 mg PO DAILY lancets (FreeStyle Lancets) As directed metformin 500 mg PO BID multivitamin (Daily-Jesse tablet) 1 tab PO DAILY nitroglycerin 0.3 mg sublingual DIRECTED PRN pantoprazole 40 mg PO DAILY tadalafil (Cialis) 5 mg PO DAILY valsartan 320 mg PO DAILY Tobacco use date assessed: 06/18/24 Dental Screening Dental Screen Date: 09/06/23 HPI 3 month f/u HPI Details 63-year-old male presents to the office for a follow-up visit. He is now taking all the medications as directed. Patient is feeling well. He is checking his blood sugars and they are in range. Able to function and do activities of daily living. [facility] Medical History Annual physical exam GERD (gastroesophageal reflux disease) Borderline hypercholesterolemia Essential (primary) hypertension Coronary artery disease Diabetes mellitus Surgical History H/O hernia repair History of heart artery stent Family History Mother No problems noted. Father No problems noted. Social History Housing: House Alcohol intake: never Patient Tobacco Use Status: Never used Tobacco e-Cigarette/Vaping Use: Never Used Second Hand Smoke Exposure: No service: No Current occupational status: employed Current occupational exposures/hazards: No Cognitive needs: No Hearing needs: No Vision needs: No Questionnaire Thrive Questionnaire Date Thrive assessed: 09/06/23 JEANETTE-7 AMB Questionnaire JEANETTE-7 Date JEANETTE - 7 assessed: 09/06/23 Source: Developed by Drs. Ck Orantes, Darby Henderson, Maco Ken and colleagues, with an educational brock from [employer]. Physical exam (Primary Care) Vital Signs: Last Vital Signs Pulse 85 06/18/24 15:02 BP 122/66 06/18/24 15:02 Pulse Ox 95 06/18/24 15:02 Oxygen Delivery Method Room Air 06/18/24 15:02 BMI result Body Mass Index 26.8 Tobacco/Smoking Status: Tobacco use Status Tobacco use date assessed 06/18/24 06/18/24 15:09 Patient Tobacco Use Status Never used Tobacco 06/18/24 15:09 e-Cigarette/Vaping Use Never Used 06/18/24 15:09 Thrive Assessment: Date of Thrive Assessment Date Thrive assessed 09/06/23 06/18/24 15:09 Const General: cooperative and healthy appearing Nutritional Appearance: well nourished Orientation/consciousness: patient oriented x3 Limitations: no limitations HENMT Head: Yes normal to inspection Eyes General: appearance normal, both eyes and all related structures Neck Neck: Yes normal visual inspection Chest Chest palpation & inspection: normal palpation of entire chest wall Resp Effort & Inspection: normal respiratory effort Neuro General: patient oriented x3 Results AMB Hemoglobin A1c AMB Hemoglobin A1c 6.9 % Last Edit by MARCEL Lao on 06/18/24 15:14 Results Reviewed Results Reviewed: Laboratory Last Values Hgb A1c (Clinic) 6.9 % (4.0-6.0) H 06/18/24 15:01 Coding Level of Care Code Est Pt Level 3 (51338) Complex EM visit Add On G2211 Diagnoses Type 2 diabetes mellitus without complication, without long-term current use of insulin E11.9 Diabetes mellitus type: type 2 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 Patient was encouraged not to get off his medications. To stay compliant with medications diet and exercise. Follow-up in 3 months. Orders: Orders AMB Hemoglobin A1c 06/18/24 E11.9 - Type 2 diabetes mellitus without complications Medications: Refilled atorvastatin 80 mg PO DAILY 90 tabs 1RF multivitamin (Daily-Jesse tablet) 1 tab PO DAILY 90 tabs 1RF
[2024-06-18 15:02] VITALS: BP 122/66; PULSE 85; O2SAT 95; BMI 26.8
== END 2024-06-18 15:25 | disposition home or self-care (01) ==
LOC: HO.HMCH 14:50
PROVIDERS: PCP Internal Medicine; Visit Provider Internal Medicine
DX: E11.9 Type 2 diabetes mellitus without complications (principal)

== ENCOUNTER → 2024-06-18 14:49 | Outpatient (BNVA) | payer OTHER, SELFPAY | PROVIDERS: PCP Internal Medicine; Visit Provider Internal Medicine | DX: E11.9 Type 2 diabetes mellitus without complications (principal) | CPT/HCPCS: 83036; 99212 ==

== ENCOUNTER 2024-07-19 10:12 | Outpatient (AMB) | payer OTHER, SELFPAY ==
[2024-07-19 10:16] VITALS: BP 120/80; PULSE 82; BMI 26.7
--- NOTE | 2024-07-19 10:16 | MHC.OFFVIS ---
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 Intake Note: New patient hx valve replacement feeling good has some palpitation at rest at times Armature Tester Required: No Certified Art Therapist: Certified Art Therapist Present Accompanied by: Son Allergies No Known Allergies Allergy (Verified 06/19/24 05:02) Medication List - Last Reconciled 07/19/24 by Martín Shi MD amlodipine 5 mg PO DAILY aspirin 81 mg PO DAILY atorvastatin 80 mg PO DAILY blood sugar diagnostic (FreeStyle Lite Strips) As directed blood-glucose meter (FreeStyle [place] kit) To be tested one time daily carvedilol 12.5 mg (2 x 6.25 mg) PO BID [diabetic shoes As directed] dulaglutide (Trulicity) 0.75 mg (0.5 mL) subcut QWEEK duloxetine 30 mg PO DAILY empagliflozin (Jardiance) 25 mg PO DAILY gabapentin 300 mg PO TID glipizide 5 mg PO DAILY hydrochlorothiazide 25 mg PO DAILY lancets (FreeStyle Lancets) As directed One time daily metformin 500 mg PO BID multivitamin (Daily-Jesse tablet) 1 tab PO DAILY pantoprazole 40 mg PO DAILY tadalafil (Cialis) 5 mg PO DAILY valsartan 320 mg PO DAILY HPI Comments Details: Thank you for referring Phil in cardiology consultation today for management of coronary artery disease, to establish with a local informatics developer, as his current informatics developer leaving the area. Patient was a pleasant 63-year-old [place] male with prior history of hypertension, hyperlipidemia, diabetes, coronary artery disease status post stenting to the LAD and RCA in 2020 for what is reported symptoms of acute onset chest pressure. However patient says that he presented 1st time to the hospital with significantly elevated blood pressure and subsequently was told that he was having heart attack and transferred to [facility] undergoing 1st stent to LAD and subsequently 3 months later undergoing stent to the distal RCA. Patient is currently feeling well. He said he walks regularly including often he jogs and he was no exertional chest pain. Denies any shortness of breath. Denies any prolonged palpitation irregular heartbeat. He says mostly his blood pressure is well controlled with systolic blood pressure in the 120-130 occasionally blood pressure up to systolic 140 but this is not frequent. His diabetes under better control. No recent lipid panel. He said he is very scientology about taking his medication. He is bothered by a dry cough. Denies any heart failure symptoms. [facility] Medical History Annual physical exam GERD (gastroesophageal reflux disease) Borderline hypercholesterolemia Essential (primary) hypertension Coronary artery disease Diabetes mellitus Surgical History H/O hernia repair History of heart artery stent Family History Mother No problems noted. Father No problems noted. Social History Housing: House Alcohol intake: never Patient Tobacco Use Status: Never used Tobacco e-Cigarette/Vaping Use: Never Used Second Hand Smoke Exposure: No service: No Current occupational status: employed Current occupational exposures/hazards: No Cognitive needs: No Hearing needs: No Vision needs: No Review of Systems Const Denies chills, Denies fatigue, Denies fever(s), Denies frequent falls, Denies weakness, Denies weight gain and Denies weight loss Eyes Denies loss of vision ENT Denies dizziness Card Denies chest pain, Denies leg edema, Denies lightheadedness, Denies palpitations, Denies dyspnea, Denies dyspnea on exertion, Denies orthopnea and Denies other (loss of consciousness) Resp Denies cough, Denies dyspnea, Denies dyspnea on exertion and Denies wheezing GI Denies hematochezia and Denies change in stool character Denies dysuria and Denies urinary frequency Musc Denies abnormal gait, Denies muscle weakness, Denies numbness, Denies radiating pain into limb and Denies tingling Skin/Breast Denies nail changes and Denies rash Neuro Denies abnormal gait, Denies dizziness, Denies frequent falls, Denies loss of vision, Denies memory loss, Denies numbness, Denies tingling and Denies weakness Psych Denies depression and Denies memory loss Endo Denies fatigue and Denies palpitations Binh/Lymph Reports easy bruising and Reports other (anemia) Aller/Immun Denies wheezing Physical Exam Vital Signs: Last Vital Signs Pulse 82 07/19/24 10:16 BP 120/80 07/19/24 10:16 BMI result Body Mass Index 26.7 Const General: cooperative, comfortable, no acute distress, alert, awake and Physically active Nutritional Appearance: average body habitus and well nourished Orientation/consciousness: patient oriented x3 Limitations: no limitations HEENT Head: Yes normocephalic and Yes atraumatic Neck Neck: Yes trachea midline, Yes supple and Yes no JVD Resp Effort & Inspection: normal respiratory effort Auscultation: clear to auscultation bilaterally Cardio Jugular venous distension: no JVD Palpation: normal PMI Rate: regular rate Rhythm: regular rhythm Heart sounds: S1 normal heart sound present, S2 normal heart sound present, no click, no gallops, no murmurs and no rubs GI Auscultation: normal bowel sounds Skin General skin exam: no rashes or lesions noted Neuro General: patient oriented x3 and no focal motor deficits Extrem General: Yes no clubbing, cyanosis or edema Office Procedures EKG Details: EKG shows normal sinus rhythm with diffuse ST T wave changes suggestive of repolarization abnormality [id number], Complete Assessment & Plan Assessment & Plan (1) Coronary artery disease: Code(s): I25.10 - Atherosclerotic heart disease of [place] coronary artery without angina pectoris Category: Medical Qualifiers: Coronary Disease-Associated Artery/Lesion type: due to calcified coronary lesion Qualified Code(s): I25.10 - Atherosclerotic heart disease of [place] coronary artery without angina pectoris; I25.84 - Coronary atherosclerosis due to calcified coronary lesion Plan: CAD with stenting to the LAD and RCA for what appears to be acute coronary syndrome with symptoms of chest pressure. He currently is fairly active and has no exertional symptoms. At this point time is CAD appears to be stable. We discussed about pathophysiology of coronary artery disease importance of aggressive medical therapy. Importance of aggressive risk factor modification in his long-term management for coronary artery disease were discussed. He showed understanding. Lifelong aspirin therapy is recommended. Aggressive control blood pressure is recommended, see below. Aggressive management diabetes goal hemoglobin A1c less than 7%. Continue high-intensity statin therapy. Advised lipid panel and CRP in near future. Target goal LDL closer to 50 mg/dL. This was discussed with him. Will further uptitrate therapy as need be. Encouraged to maintain activity level as tolerated. Advised to call me with any new symptoms. (2) Essential (primary) hypertension: Code(s): I10 - Essential (primary) hypertension Category: Medical Plan: Hypertension which appears to be well optimized on today's exam. He does measure blood pressure regularly at home and generally well controlled. He is encouraged to continue with current medical therapy. Low-salt diet was discussed. Advised to call me with persistently elevated blood pressure. Maintain activity level as tolerated. Will follow up in the clinic in 1 year's time, sooner p.r.n.. Thank you for allowing me to partake in his care Orders: Orders CRP High Sensitivity Today E78.5 - Hyperlipidemia, unspecified, I25.10 - Atherosclerotic heart disease of [place] coronary artery without angina pectoris, I25.84 - Coronary atherosclerosis due to calcified coronary lesion Lipid Panel Today I25.10 - Atherosclerotic heart disease of [place] coronary artery without angina pectoris, I25.84 - Coronary atherosclerosis due to calcified coronary lesion Coding Level of Care Code New Pt Level 4 (25796) Complex EM visit Add On G2211 Diagnoses Coronary artery disease due to calcified coronary lesion I25.10; I25.84 Coronary Disease-Associated Artery/Lesion type: due to calcified coronary lesion Essential (primary) hypertension I10 CPT Codes EKG - CPT: 40415-[id number], Complete ([id number])
== END 2024-07-19 11:15 | disposition home or self-care (01) ==
PROVIDERS: PCP Internal Medicine; Visit Provider Internal Medicine Cardiovascular Disease
DX: I25.10 Atherosclerotic heart disease of native coronary artery without angina pectoris (principal); I25.84 Coronary atherosclerosis due to calcified coronary lesion; I10 Essential (primary) hypertension
CPT/HCPCS: 93010; 99204; G2211

== ENCOUNTER → 2024-07-19 10:12 | Outpatient (BNVA) | payer OTHER, SELFPAY | PROVIDERS: PCP Internal Medicine; Visit Provider Internal Medicine Cardiovascular Disease | DX: I25.84 Coronary atherosclerosis due to calcified coronary lesion (principal); R00.2 Palpitations; I25.10 Atherosclerotic heart disease of native coronary artery without angina pectoris; I10 Essential (primary) hypertension; E78.5 Hyperlipidemia, unspecified | CPT/HCPCS: 93005; 99202 ==

== ENCOUNTER 2024-11-08 09:56 | Outpatient (AMB) | payer OTHER, SELFPAY ==
--- NOTE | 2024-11-08 10:32 | A.OFFPC_ITS ---
Vital Signs 11/08/24 10:33 Height 5 ft 6 in Weight 156 lb 4 oz BMI 25.2 BP 110/70 Blood Pressure Location Lt brachial Position Sitting Pulse 83 Pulse Source Pulse Oximeter Temp 97.3 F Temp Source Temporal Artery Scan Pulse Oximetry (%) 96 Oxygen Delivery Method Room Air Intake Visit Reasons: 3 month f/u Intake Note: Patient is here to follow up on DM, HTN, GERD, Hypercholesterolemia. Specialty Molder Required: No Data Reviewer: Not Required per policy Accompanied by: Self / Same As Patient Allergies No Known Allergies Allergy (Verified 11/09/24 18:01) Medication List - Last Reconciled 11/09/24 by Luis Pitts MD amlodipine 5 mg PO DAILY aspirin 81 mg PO DAILY atorvastatin 80 mg PO DAILY blood sugar diagnostic (FreeStyle Lite Strips) As directed blood-glucose meter (FreeStyle [place] kit) To be tested one time daily carvedilol 12.5 mg (2 x 6.25 mg) PO BID [diabetic shoes As directed] dulaglutide (Trulicity) 0.75 mg (0.5 mL) subcut QWEEK duloxetine 30 mg PO DAILY empagliflozin (Jardiance) 25 mg PO DAILY gabapentin 300 mg PO TID glipizide 5 mg PO DAILY hydrochlorothiazide 25 mg PO DAILY ketoconazole 2% 1 appl topical DAILY lancets (FreeStyle Lancets) As directed One time daily metformin 500 mg PO BID multivitamin (Daily-Jesse tablet) 1 tab PO DAILY pantoprazole 40 mg PO DAILY tadalafil (Cialis) 5 mg PO DAILY valsartan 320 mg PO DAILY Tobacco use date assessed: 11/08/24 Dental Screening Dental Screen Date: 11/08/24 Did you have a dental visit in the last 12 months?: Yes Did you have a dental problem in the last 6 months where you did not have access to dental care?: No Was dental information given to patient?: Patient has dentist [facility] Medical History Annual physical exam GERD (gastroesophageal reflux disease) Borderline hypercholesterolemia Essential (primary) hypertension Coronary artery disease Diabetes mellitus Surgical History H/O hernia repair History of heart artery stent Family History Mother No problems noted. Father No problems noted. Social History Housing: House Alcohol intake: never Patient Tobacco Use Status: Never used Tobacco e-Cigarette/Vaping Use: Never Used Second Hand Smoke Exposure: No service: No Current occupational status: employed Current occupational exposures/hazards: No Cognitive needs: No Hearing needs: No Vision needs: No Questionnaire PHQ-9 Over the last 2 weeks, how often have you been bothered by any of the following problems? 1. Little interest or pleasure in doing things: not at all 2. Feeling down, depressed, or hopeless: not at all 3. Trouble falling or staying asleep, or sleeping too much: not at all 4. Feeling tired or having little energy: not at all 5. Poor appetite or overeating: not at all 6. Feeling bad about yourself - or that you are a failure or have let yourself or your family down: not at all 7. Trouble concentrating on things, such as reading the newspaper or watching television: not at all 8. Moving or speaking so slowly that other people could have noticed. Or the opposite - being so fidgety or restless that you have been moving around a lot more than usual: not at all 9. Thoughts that you would be better off or of hurting yourself in some way: not at all Total score: 0 Depression Screening Interpretation: Negative Depression Screening Done: Yes Source: Developed by Drs. Ck Orantes, Darby Henderson, Maco Ken and colleagues, with an educational brock from [employer]. Thrive Questionnaire Date Thrive assessed: 11/08/24 I am a: Patient What is your living situation today?: I have a steady place to live Within the past 12 months, did the food you bought not last and you didn't have the money to get more?: Never true Within the past 12 months, did you worry whether your food would run out before you got money to buy more?: Never true Do you have trouble paying for medicines?: No Do you have trouble getting transportation to medical appointments?: No Do you have trouble paying your heating and electricity bill?: No Do you have trouble taking care of your child, family member or friend?: No Do you have trouble with day-to-day activities such as bathing, preparing meals, shopping, managing finances, etc.?: No Are you currently unemployed and looking for a job?: No Are you interested in more education?: No Please select the resources that you would like help with: None Currently or been in a relationship where the following occur: No concerns reported THRIVE Score: 0 AUDIT C Alcohol Use Questionnaire (AUDIT-C) 1. How often do you have a drink containing alcohol?: Never Total Score: 0 JEANETTE-7 AMB Questionnaire JEANETTE-7 Date JEANETTE - 7 assessed: 11/08/24 Feeling nervous, anxious, or on edge: 0 = Not at all Not being able to stop or control worryin = Not at all Worrying too much about different things: 0 = Not at all Trouble relaxin = Not at all Being so restless that it is hard to sit still: 0 = Not at all Becoming easily annoyed or irritable: 0 = Not at all Feeling afraid as if something awful might happen: 0 = Not at all Total JEANETTE-7 score (0-4 normal; 5-9 mild; 10-14 moderate; 15-21 severe): 0 Source: Developed by Drs. Ck Orantes, Darby Henderson, Maco Ken and colleagues, with an educational brock from [employer]. Physical exam (Primary Care) Vital Signs: Last Vital Signs Temp 97.3 F 11/08/24 10:33 Pulse 83 11/08/24 10:33 BP 110/70 11/08/24 10:33 Pulse Ox 96 11/08/24 10:33 Oxygen Delivery Method Room Air 11/08/24 10:33 Next steps: BP in range. BMI result Body Mass Index 25.2 Tobacco/Smoking Status: Tobacco use Status Tobacco use date assessed 11/08/24 11/08/24 10:42 Patient Tobacco Use Status Never used Tobacco 11/08/24 10:42 e-Cigarette/Vaping Use Never Used 11/08/24 10:42 PHQ-9: PHQ-9 Score PHQ-9: Total score 0 11/08/24 10:42 Depression Screening Interpretation: Negative Thrive Assessment: Date of Thrive Assessment Date Thrive assessed 11/08/24 11/08/24 10:42 Currently or been in a relationship where the following occur: No concerns reported Advance Care Planning discussion: Exists, not on file Date of discussion: 11/08/24 Who was present: Patient Forms completed: Health Care Proxy and MOLST Results AMB Hemoglobin A1c AMB Hemoglobin A1c 7.9 % Last Edit by MARCEL Lao on 11/08/24 10:52 Results Reviewed Results Reviewed: Laboratory Last Values Hgb A1c (Clinic) 7.9 % (4.0-6.0) H 11/08/24 10:31 Coding Level of Care Code Est Pt Level 4 (12520) Complex EM visit Add On G2211 Diagnoses Type 2 diabetes mellitus without complication, without long-term current use of insulin E11.9 Diabetes mellitus complication status: without complication Diabetes mellitus correction insulin use: without correction use Diabetes mellitus type: type 2 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 (2) Endogenous depression: Code(s): F33.2 - Major depressive disorder, recurrent severe without psychotic features Category: Medical Plan: Continue current meds Plan History of Present Illness The patient is a 64-year-old male presenting with hyperglycemia and a fungal infection of the foot. The patient's blood sugar level is over 200 mg/dL, and he has completed his previously prescribed course of Trulicity without realizing the need for continuation. He also reports an issue with his left leg, identified as a fungal infection, with the discomfort being limited to the middle of the leg. Social History - The patient mentioned plans to travel to [place] in November. - No other social determinants of health were discussed. Review of Systems - Endocrine: Reports elevated blood sugar levels over 200 mg/dL. Physical Exam General: Cooperative and healthy appearing Nutritional Appearance: Well nourished Orientation/consciousness: Patient oriented x3 Limitations: No limitations Head: Normal to inspection General: Appearance normal, both eyes and all related structures Neck: Normal visual inspection Chest: Normal palpation of entire chest wall Respiratory: Normal respiratory effort Neurology: Patient oriented x3 Results - Labs: Fasting glucose levels reported to be over 200 mg/dL. Plan The patient was instructed to continue weekly Trulicity injections with refills to manage his hyperglycemia. Ketoconazole ointment was prescribed for the fungal infection of the foot, and the application procedure was explained. A follow-up in three months was planned to monitor blood sugar levels and the status of the infection. Patient was informed and verbally consented to the use of an ambient scribe for clinic note documentation during this visit. Discussion Notes I discussed at length with the patient the necessity to continue his weekly Trulicity injections to manage his blood sugar levels, ensuring he understood that these injections are non-detrimental to kidney function. For the fungal i nfection, I prescribed Ketoconazole ointment, explaining its application and expected benefits. We agreed on the need for appropriate medical follow-up in three months. Furthermore, I noted the patient plans to travel to [facility] in November, and we discussed the importance of maintaining his glucose control regimen during this period. All possible concerns were addressed, and the necessary adjustments were made to his medication plan to accommodate his travel plans. Patient Instructions - Continue weekly injections of Trulicity as prescribed. - Apply Ketoconazole ointment between the toes as instructed and use powder to keep the area dry. - Ensure refills are secured and collected in a timely manner. - Follow up in three months for re-evaluation of glucose levels and fungal infection. - Maintain your treatment regimen during travel to [facility]. Orders: Orders AMB Hemoglobin A1c 11/08/24 E11.9 - Type 2 diabetes mellitus without complications Basic Metabolic Panel 11/08/24 E11.9 - Type 2 diabetes mellitus without complications, F33.2 - Major depressive disorder, recurrent severe without psychotic features Lipid Panel 11/08/24 E11.9 - Type 2 diabetes mellitus without complications, F33.2 - Major depressive disorder, recurrent severe without psychotic features Microalbumin, Random (w Creat) 11/08/24 E11.9 - Type 2 diabetes mellitus without complications, F33.2 - Major depressive disorder, recurrent severe without psychotic features Complete Blood Count no Diff 11/08/24 E11.9 - Type 2 diabetes mellitus without complications, F33.2 - Major depressive disorder, recurrent severe without psychotic features Liver Panel 11/08/24 E11.9 - Type 2 diabetes mellitus without complications, F33.2 - Major depressive disorder, recurrent severe without psychotic features Thyroid Stimulating Hormone 11/08/24 E11.9 - Type 2 diabetes mellitus without complications, F33.2 - Major depressive disorder, recurrent severe without psychotic features UA and rflx microscopic 11/08/24 E11.9 - Type 2 diabetes mellitus without complications, F33.2 - Major depressive disorder, recurrent severe without psychotic features Medications: New ketoconazole 2% 1 appl topical DAILY 30 grams 1RF Refilled dulaglutide (Trulicity) 0.75 mg (0.5 mL) subcut QWEEK 2 mL 1RF
[2024-11-08 10:33] VITALS: BP 110/70; PULSE 83; TEMP 36.3; O2SAT 96; BMI 25.2
--- OUTSIDE RECORDS SUMMARY | 2024-11-08 12:18 | XMS_ITS | Clinical Summary ---
Author Organization [facility] Address [address] [place] [address] Phone Care Team Providers Care Security Officer Supervisor Name Role Phone Albert Joyce MD Primary Care Provider [phone] Allergies No known active allergies Medications nitroglycerin (NITROSTAT) 0.[address] 1 tablet (0.4 mg total) under the tongue every 5 (five) minutes if needed for chest pain. 90 tablet 09/21/2024 Active Encounters Date Type Department Care Team Description 09/21/2024 7:11 AM EST - 09/21/2024 11:22 AM EST Emergency [facility] Emergency [address] [place] [address] Alexi Javier MD Chest pain, unspecified type (Primary Dx); Coronavirus infection, unspecified Discharge Disposition: Home or Self Care from Last 3 Months Medical History Medical History Date Comments Hypertension Social History Tobacco Use Types Packs/Day Years Used Date Smoking Tobacco: Never Assessed Sex and Gender Information Value Date Recorded Sex Assigned at Male 09/21/2024 7:55 AM EST Legal Sex Male 6:19 AM EST Gender Identity Male 09/21/2024 7:55 AM EST Sexual Orientation Straight 09/21/2024 7: 55 AM EST Obstetrics History Last Filed Vital Signs Vital Sign Reading Time Taken Comments Blood Pressure 141/90 09/21/2024 11:15 AM EST Pulse 71 09/21/2024 11:15 AM EST Temperature 37.1 ??C (98.8 ??F) 09/21/2024 7:18 AM ES T Respiratory Rate 16 09/21/2024 11:15 AM EST Oxygen Saturation 96% 09/21/2024 11:15 AM EST Inhaled Oxygen Concentration - - Weight 72 kg (158 lb 11.7 oz) 09/21/2024 7:29 AM EST Height 167.6 cm (5' 6 ) 09/21/2024 7:29 AM EST Body Mass Index 25.62 09/21/2024 7:29 AM EST Plan of Treatment Health Maintenance Due Date Last Done Comments Diabetes: Annual Foot Exam 1972 Diabetes: Annual Retina Eye Exam 1972 DTaP,Tdap,and Td Vaccines (1 - Tdap) 1981 Pneumococcal Vaccine: 50+ Years (1 of 1 - PCV) 2012 Zoster Vaccines (1 of 2) 2012 Cholesterol Screening (Lipid Panel) 07/18/2022 Colorectal Cancer Screening: Colonoscopy 07/18/2022 Depression Screening 07/18/2022 HIV Screening 07/18/2022 Hepatitis C Screening 07/18/2022 Social Influencers of Health Screening 07/18/2022 COVID-19 Vaccine (3 - 2023-2 5 season) 2024 12/30/2020, 12/09/2020 Influenza Vaccine (#1) 2024 , 05/01/2019 Diabetes: Annual Urine Albumin-Creatinine Ratio (uACR) 09/21/2024 Diabetes: Blood Sugar Contro l Test (HGBA1C) 09/21/2024 Diabetes: Annual GFR (Glomerular Filtration Rate) 09/21/2025 09/21/2024 Hypertension/CHF/CAD Annual BMP Blood Test 09/21/2025 09/21/2024 RSV Immunization Patients 60 + Years Old (1 - 1-dose 75+ series) 2037 HIB Vaccines Aged Out No longer eligi ble based on patient's age to complete this topic HPV Vaccines Aged Out No longer eligi ble based on patient's age to complete this topic Hepatitis A Vaccines Aged Out No long er eligible based on patient's age to complete this topic Hepatitis B Vaccines Aged Out No long er eligible based on patient's age to complete this topic IPV Vaccines Aged Out No longer eligi ble based on patient's age to complete this topic MMR Vaccines Aged Out No longer eligi ble based on patient's age to complete this topic Meningococcal ACWY Vaccine Aged Out N o longer eligible based on patient's age to complete this topic Meningococcal B Vacine Aged Out No lo nger eligible based on patient's age to complete this topic Pneumococcal Vaccine: Pediatrics (0 to 5 Years) and At-Risk Patients (6 to 64 Years) Aged Out No longer eligible b ased on patient's age to complete this topic RSV Immunization Patients Under 20 months Aged Out No longer eligible b ased on patient's age to complete this topic Varicella Vaccines Aged Out No longer eligible based on patient's age to complete this topic Procedures Procedure Name Priority Date/Time Associated Diagnosis Comments CT ANGIO CHEST WO AND/OR W CONTRAST STAT 09/21/2024 10:22 AM EST Chest pain, unspecified type ECG 12-LEAD STAT 09/21/2024 8:37 AM EST TROPONIN I HIGH SENSITIVITY STAT 09/21/2024 8:17 AM EST ECG 12-LEAD STAT 09/21/2024 7:49 AM EST XR CHEST 2 VIEWS STAT 09/21/2024 7:47 AM EST RESPIRATORY VIRUS PANEL MOLECULAR STUDY STAT 09/21/2024 7:26 AM EST CBC WITH AUTO DIFFERENTIAL STAT 09/21/2024 7:25 AM EST B-TYPE NATRIURETIC PEPTIDE STAT 09/21/2024 7:25 AM EST MAGNESIUM STAT 09/21/2024 7:25 AM EST LIPASE STAT 09/21/2024 7:25 AM EST COMPREHENSIVE METABOLIC PANEL STAT 09/21/2024 7:25 AM EST CBC AND DIFFERENTIAL STAT 09/21/2024 7:25 AM EST TROPONIN I HIGH SENSITIVITY STAT 09/21/2024 7:25 AM EST ECG ANNOTATED 09/21/2024 ECG ANNOTATED 09/21/2024 ECG ANNOTATED 09/21/2024 ECG ANNOTATED 09/21/2024 from Last 3 Months Results * CT Angio Chest wo and/or w Contrast (09/21/2024 10:22 AM EST) Anatomical Region Laterality Modality Body Computed Tomogra phy 09/21/2024 10:3 3 AM EST Impressions 09/21/2024 10:50 AM EST No pulmonary arterial emboli. No acute findings in the chest. -------- FINAL REPORT -------- Dictated By: GALEN LAMA Dictated Date: 09/21/2024 10:33 ET Assigned Physician: GALEN LAMA Reviewed and Electronically Signed By: GALEN LAMA Signed Date: 09/21/2024 10:50 ET Workstation ID: [id number] Transcribed By: Self Edit Transcribed Date: 09/21/2024 10:33 ET Narrative 09/21/2024 10:50 AM EST PROCEDURE: Chest CTA INDICATION: Shortness of breath TECHNIQUE: Chest CTA with intravenous administration of 100cc ISOVUE-370. Multi planar reformats were created and interpreted. The examination was performed utilizing dose reduction techniques.3-D or MIP images were produced with postprocessing on an independent computer workstation. ??Total DLP 322 COMPARISON: ??Same day chest radiograph FINDINGS: LUNGS/PLEURA: Central airways are patent. ??Bibasilar atelectasis. ??No pleural effusion or pneumothorax. ??Multifocal sub-5 mm pleural nodularity seen along the anterior aspect of the right upper lobe, possibly related to prior asbestos exposure. ??Lingular granuloma. ??No pleural effusion or pneumothorax. MEDIASTINUM: No pulmonary arterial emboli. Thyroid gland is unremarkable. No mediastinal or hilar lymphadenopathy. Cardiac chambers are normal in size. No pericardial effusion. ??Moderate coronary artery calcifications. ??Esophagus is normal. CHEST WALL: No axillary lymphadenopathy or superficial hematoma. UPPER ABDOMEN:The visualized portions of the upper abdomen are unremarkable. BONES: Bones are normal for age. Procedure Note Galen Lama MD - 09/21/2024 PROCEDURE: Chest CTA INDICATION: Shortness of breath TECHNIQUE: Chest CTA with intravenous administration of 100cc ISOVUE-370.Multi planar reformats were created and interpreted. The examination wasperformed utilizing dose reduction techniques.3-D or MIP images wereproduced with postprocessing on an independent computer workstation.Total DLP 322 COMPARISON: Same day chest radiograph FINDINGS: LUNGS/PLEURA: Central airways are patent. Bibasilar atelectasis. Nopleural effusion or pneumothorax. Multifocal sub-5 mm pleural nodularityseen along the anterior aspect of the right upper lobe, possibly relatedto prior asbestos exposure. Lingular granuloma. No pleural effusion orpneumothorax. MEDIASTINUM: No pulmonary arterial emboli. Thyroid gland is unremarkable.No mediastinal or hilar lymphadenopathy. Cardiac chambers are normal insize. No pericardial effusion. Moderate coronary artery calcifications.Esophagus is normal. CHEST WALL: No axillary lymphadenopathy or superficial hematoma. UPPER ABDOMEN:The visualized portions of the upper abdomen areunremarkable. BONES: Bones are normal for age. IMPRESSION: No pulmonary arterial emboli. No acute findings in the chest. -------- FINAL REPORT -------- Dictated By: GALEN LAMA Dictated Date: 09/21/2024 10:33 ET Assigned Physician: GALEN LAMA Reviewed and Electronically Signed By: GALEN LAMA Signed Date: 09/21/2024 10:50 ET Workstation ID: [id number] Transcribed By: Self Edit Transcribed Date: 09/21/2024 10:33 ET us Alexi Javier MD [facility] [place] PROCEDURES Final Res ult * ECG 12 lead (09/21/2024 8:37 AM EST) Only the most recent of2 resultswithin the time period is included. Ventricular Rate ECG 77 BPM GEMUSE Atrial Rate 77 BPM GEMUSE P-R Interval 200 ms GEMUSE QRS Duration 102 ms GEMUSE Q-T Interval 382 ms GEMUSE QTc 432 ms GEMUSE P Wave Lester 38 degrees GEMUSE R Lester -38 degrees GEMUSE T Lester 1 degrees GEMUSE ECG Interpretation Normal sinus rhythm Left axis deviation Incomplete right bundle branch block Septal infarct (cited on or before 05-FEB-2022) T wave abnormality, consider lateral ischemia Abnormal ECG When compared with ECG of 21-SEP-2024 07:49, (unconfirmed) No significant change was found Confirmed by Scarlet WILDE, BALTAZAR ([id number]) on 09/22/2024 11:18:13 AM GEMUSE 09/21/2024 8:37 AM EST 09/22/2024 11:18 AM EST Alexi Javier MD ECG ORDERABLES Final Resul t GEMUSE * Troponin I high sensitivity (09/21/2024 8:17 AM EST) Only the most recent of2 resultswithin the time period is included. High Sensitivity Troponin I 10 <=79 ng/L LAB CHEMISTRY METHOD 09/21/2024 9:44 AM EST [facility] Blood Venous blood specimen / Unknown Venipuncture / Unknown 09/21/2024 8:17 AM EST 09/21/2024 9:19 AM EST Narrative [facility] - 09/21/2024 9:44 AM EST High levels of biotin in samples may falsely decrease hsTroponin values. ??Use caution when interpreting hsTroponin results in patients taking biotin who exhibit renal impairment (eGFR <60) or in patients taking more than 20 mg/day of biotin. Alexi Javier MD LAB BLOOD ORDERABLES Final Result Performing Organization Address [facility]/ZIP Co de Phone Number [facility] [address] [place] [address], * XR Chest 2 Views (09/21/2024 7:47 AM EST) Anatomical Region Laterality Modality Body Radiographic Cherrie ging 09/21/2024 8:15 AM EST Impressions 09/21/2024 8:16 AM EST FINDINGS/IMPRESSION: Lungs are clear. ??No pleural effusion or pneumothorax. ??Cardiac silhouette and bones are normal. -------- FINAL REPORT -------- Dictated By: GALEN LAMA Dictated Date: 09/21/2024 08:15 ET Assigned Physician: GALEN LAMA Reviewed and Electronically Signed By: GALEN LAMA Signed Date: 09/21/2024 08:16 ET Workstation ID: [id number] Transcribed By: Self Edit Transcribed Date: 09/21/2024 08:15 ET Narrative 09/21/2024 8:16 AM EST XR CHEST 2 VIEWS INDICATION: ??Pain TECHNIQUE: XR CHEST 2 VIEWS COMPARISON: 02/06/2022 Procedure Note Galen Lama MD - 09/21/2024 XR CHEST 2 VIEWS INDICATION: Pain TECHNIQUE: XR CHEST 2 VIEWS COMPARISON: 02/06/2022 IMPRESSION: FINDINGS/IMPRESSION: Lungs are clear. No pleural effusion orpneumothorax. Cardiac silhouette and bones are normal. -------- FINAL REPORT -------- Dictated By: GALEN LAMA Dictated Date: 09/21/2024 08:15 ET Assigned Physician: GALEN LAMA Reviewed and Electronically Signed By: GALEN LAMA Signed Date: 09/21/2024 08:16 ET Workstation ID: [id number] Transcribed By: Self Edit Transcribed Date: 09/21/2024 08:15 ET us Alexi Javier MD IMG XR PROCEDURES Final Res ult * (ABNORMAL) Respiratory virus panel molecular study (09/21/2024 7:26 AM EST) Pathologist [facility] Adenovirus Detection by PCR Not Detected Not Detected LAB MICROBIOLOGY METHOD 09/21/2024 8:41 AM EST [facility] Influenza A PCR Not Detected Not Detected LAB MICROBIOLOGY METHOD 09/21/2024 8:41 AM [facility] Influenza B PCR Not Detected Not Detected LAB MICROBIOLOGY METHOD 09/21/2024 8:41 AM [facility] Coronavirus 229E Not Detected Not Detected LAB MICROBIOLOGY METHOD 09/21/2024 8:41 AM [facility] Coronavirus HKU1 Not Detected Not Detected LAB MICROBIOLOGY METHOD 09/21/2024 8:41 AM [facility] Coronavirus OC43 Detected(A ) Not Detected LAB MICROBIOLOGY METHOD 09/21/2024 8:41 AM [facility] Coronavirus NL63 Not Detected Not Detected LAB MICROBIOLOGY METHOD 09/21/2024 8:41 AM [facility] Parainfluenza Virus 1 Not Detected Not Detected LAB MICROBIOLOGY METHOD 09/21/2024 8:41 AM [facility] Parainfluenza Virus 2 Not Detected Not Detected LAB MICROBIOLOGY METHOD 09/21/2024 8:41 AM [facility] Parainfluenza Virus 3 Not Detected Not Detected LAB MICROBIOLOGY METHOD 09/21/2024 8:41 AM [facility] Parainfluenza Virus 4 Not Detected Not Detected LAB MICROBIOLOGY METHOD 09/21/2024 8:41 AM [facility] RSV PCR Not Detected Not Detected LAB MICROBIOLOGY METHOD 09/21/2024 8:41 AM [facility] Human Metapneumovirus A and B Not Detected Not Detected LAB MICROBIOLOGY METHOD 09/21/2024 8:41 AM [facility] Rhinovirus/Entero virus Not Detected Not Detected LAB MICROBIOLOGY METHOD 09/21/2024 8:41 AM [facility] Bordetella pertussis Not Detected Not Detected LAB MICROBIOLOGY METHOD 09/21/2024 8:41 AM [facility] Bordetella parapertussis Not Detected Not Detected LAB MICROBIOLOGY METHOD 09/21/2024 8:41 AM [facility] Mycoplasma pneumo by PCR Not Detected Not Detected LAB MICROBIOLOGY METHOD 09/21/2024 8:41 AM [facility] Chlamydia pneumoniae Not Detected Not Detected LAB MICROBIOLOGY METHOD 09/21/2024 8:41 AM [facility] SARS COV-2 Not Detected Not Detected LAB MICROBIOLOGY METHOD 09/21/2024 8:41 AM [facility] Aspirate Both anterior nares / Unknown Non-blood Collection / Unknown 09/21/2024 7:26 AM EST 09/21/2024 7:40 AM EST [facility] - 09/21/2024 8:41 AM EST Testing was performed using the [employer] Respiratory Pathogen PCR Assay. All results must be correlated with the clinical findings. Results should not be used as the sole basis for diagnosis. False Negative results may occur from the presence of sequence variants in the region targeted by the assay or the presence of inhibitors. Results may be affected by concurrent antiviral/antimicrobial therapy or levels of organisms that are below the limit of detection. us Alexi Javier MD LAB MICROBIOLOGY - GENERAL ORDERABLES Final Result [facility] [address] [place] [address], * (ABNORMAL) CBC auto differential (09/21/2024 7:25 AM EST) WBC 8.9 4.8 - 10.8 K/mcL LAB HEMETOLOGY METHOD 09/21/2024 7:48 AM [facility] RBC 5.30 4.50 - 5.50 M/mcL LAB HEMETOLOGY METHOD 09/21/2024 7:48 AM [facility] Hemoglobin 15.0 13.5 - 17.5 g/dL LAB HEMETOLOGY METHOD 09/21/2024 7:48 AM [facility] Hematocrit 44.1 42.0 - 54.0 % LAB HEMETOLOGY METHOD 09/21/2024 7:48 AM [facility] MCV 83.7 79.0 - 98.0 FL LAB HEMETOLOGY METHOD 09/21/2024 7:48 AM [facility] MCH 28.5 27.0 - 32.0 pcg LAB HEMETOLOGY METHOD 09/21/2024 7:48 AM [facility] MCHC 34.0 32.0 - 37.0 g/dL LAB HEMETOLOGY METHOD 09/21/2024 7:48 AM [facility] RDW 13.2 11.0 - 15.0 % LAB HEMETOLOGY METHOD 09/21/2024 7:48 AM [facility] Platelets 224 130 - 400 K/mcL LAB HEMETOLOGY METHOD 09/21/2024 7:48 AM [facility] MPV 10.3 7.0 - 11.0 FL LAB HEMETOLOGY METHOD 09/21/2024 7:48 AM [facility] NRBC 0.0 <1.0 % LAB HEMETOLOGY METHOD 09/21/2024 7:48 AM [facility] NRBC Absolute 0.00 <0.10 K/mcL LAB HEMETOLOGY METHOD 09/21/2024 7:48 AM [facility] Neutrophils Relative 52.8 % LAB HEMETOLOGY METHOD 09/21/2024 7:48 AM [facility] Lymphocytes Relative 26.8 % LAB HEMETOLOGY METHOD 09/21/2024 7:48 AM [facility] Monocytes Relative 16.1 % LAB HEMETOLOGY METHOD 09/21/2024 7:48 AM [facility] Eosinophils Relative 3.4 % LAB HEMETOLOGY METHOD 09/21/2024 7:48 AM [facility] Basophils Relative 0.7 % LAB HEMETOLOGY METHOD 09/21/2024 7:48 AM [facility] Immature Granulocytes Relative 0.2 % LAB HEMETOLOGY METHOD 09/21/2024 7:48 AM [facility] Neutrophils Absolute 4.70 1.50 - 7.00 K/mcL LAB HEMETOLOGY METHOD 09/21/2024 7:48 AM EST [facility] Lymphocytes Absolute 2.38 1.00 - 5.00 K/mcL LAB HEMETOLOGY METHOD 09/21/2024 7:48 AM EST [facility] Monocytes Absolute 1.43(H) 0.20 - 1.00 K/mcL LAB HEMETOLOGY METHOD 09/21/2024 7:48 AM EST [facility] Eosinophils Absolute 0.30 0.00 - 0.50 K/[facility] LAB HEMETOLOGY METHOD 09/21/2024 7:48 AM EST [facility] Basophils Absolute 0.06 0.00 - 0.20 K/[facility] LAB HEMETOLOGY METHOD 09/21/2024 7:48 AM EST [facility] Immature Granulocytes Absolute 0.02 0.00 - 0.03 K/mcL LAB HEMETOLOGY METHOD 09/21/2024 7:48 AM EST [facility] Blood Venous blood specimen / Unknown Venipuncture / Unknown 09/21/2024 7:25 AM EST 09/21/2024 7:41 AM EST Alexi Javier MD LAB BLOOD ORDERABLES Final Result Performing Organization Address City/[facility]/ZIP Co de Phone Number [facility] [address] [place] [address], * B-type natriuretic peptide (09/21/2024 7:25 AM EST) BNP 6 <=100 pcg/mL LAB CHEMISTRY METHOD 09/21/2024 8:16 AM EST [facility] Blood Venous blood specimen / Unknown Venipuncture / Unknown 09/21/2024 7:25 AM EST 09/21/2024 7:41 AM EST Alexi Javier MD LAB BLOOD ORDERABLES Final Result [facility] [address] [place] [address], * Magnesium (09/21/2024 7:25 AM EST) [facility] Magnesium 2.3 1.9 - 2.6 mg/dL LAB CHEMISTRY METHOD 09/21/2024 8:14 AM EST [facility] Blood Venous blood specimen / Unknown Venipuncture / Unknown 09/21/2024 7:25 AM EST 09/21/2024 7:41 AM EST Alexi Javier MD LAB BLOOD ORDERABLES Final Result Performing Organization Address [facility]/ZIP Co de Phone Number [facility] [address] [place] [address], [place] [phone] * Lipase (09/21/2024 7:25 AM EST) [facility] Lipase 32 13 - 75 unit/L LAB CHEMISTRY METHOD 09/21/2024 8:14 AM EST [facility] Blood Venous blood specimen / Unknown Venipuncture / Unknown 09/21/2024 7:25 AM EST 09/21/2024 7:41 AM EST Alexi Javier MD LAB BLOOD ORDERABLES Final Result Performing Organization Address City/[facility]/ZIP Co de Phone Number [facility] [address] [place] [address], [place] [phone] * (ABNORMAL) Comprehensive metabolic panel (09/21/2024 7:25 AM EST) [facility] Sodium 136 133 - 145 mmol/L LAB CHEMISTRY METHOD 09/21/2024 8:14 AM EST [facility] Potassium 3.0(L) 3.5 - 5.5 mmol/L LAB CHEMISTRY METHOD 09/21/2024 8:14 AM EST [facility] Chloride 101 96 - 110 mmol/L LAB CHEMISTRY METHOD 09/21/2024 8:14 AM [facility] CO2 30 21 - 32 mmol/L LAB CHEMISTRY METHOD 09/21/2024 8:14 AM [facility] Anion Gap 5 3 - 11 LAB CHEMISTRY METHOD 09/21/2024 8:14 AM [facility] Glucose 200(H) 70 - 100 mg/dL LAB CHEMISTRY METHOD 09/21/2024 8:14 AM [facility] BUN 19 5 - 25 mg/dL LAB CHEMISTRY METHOD 09/21/2024 8:14 AM [facility] Creatinine 0.96 0.70 - 1.30 mg/dL LAB CHEMISTRY METHOD 09/21/2024 8:14 AM [facility] eGFR 90 >=60 mL/min/1. 73m2 LAB CHEMISTRY METHOD 09/21/2024 8:14 AM [facility] Comment:Calculation based on the??Chronic Kidney Disease Epidemiology Collaboration (CKD-EPI) equation refit??without adjustment for race. BUN/Creatinine Ratio 19.8 LAB CHEMISTRY METHOD 09/21/2024 8:14 AM [facility] Calcium 8.7 8.5 - 10.5 mg/dL LAB CHEMISTRY METHOD 09/21/2024 8:14 AM [facility] AST (SGOT) 28 10 - 42 unit/L LAB CHEMISTRY METHOD 09/21/2024 8:14 AM [facility] ALT (SGPT) 37 10 - 60 unit/L LAB CHEMISTRY METHOD 09/21/2024 8:14 AM [facility] Alkaline Phosphatase 91 42 - 121 unit/L LAB CHEMISTRY METHOD 09/21/2024 8:14 AM [facility] Total Protein 6.8 6.0 - 8.0 g/dL LAB CHEMISTRY METHOD 09/21/2024 8:14 AM [facility] Albumin 3.6 3.2 - 5.0 g/dL LAB CHEMISTRY METHOD 09/21/2024 8:14 AM EST [facility] Total Bilirubin 0.6 0.0 - 1.4 mg/dL LAB CHEMISTRY METHOD 09/21/2024 8:14 AM EST [facility] ([facility] Blood Venous blood specimen / Unknown Venipuncture / Unknown 09/21/2024 7:25 AM EST 09/21/2024 7:41 AM EST us Alexi Javier MD LAB BLOOD ORDERABLES Final Result [facility] ([facility] [address] [place] [address], * ECG-Annotated (09/21/2024) Only the most recent of4 resultswithin the time period is included. us Provider Onbase ECG ORDERABLES Final Result from Last 3 Months Additional Health Concerns Infection Onset Date Last Indicated Coronavirus 09/21/2024 09/21/2024 Insurance [facility] Care Teams Security Officer Supervisor Relationship Specialty Start Date End Date Albert Joyce MD [address] [place] [address] [address] [place] PCP - General Internal Medicine 11/28/18
--- OUTSIDE RECORDS SUMMARY | 2024-11-08 12:18 | XMS_ITS | Clinical Summary ---
Author Organization [facility] Address [address] [place] [address] Care Team Providers Care Registered Dental Hygienist Name Role Phone Unavailable Primary Care Provider Unavailabl e Source Comments PLEASE NOTE, if this patient is a minor, it may be UNLAWFUL to discuss sensitive information that is contained in these records (such as FAMILY PLANNING, MENTAL HEALTH or SUBSTANCE ABUSE) with the minor patient's parent or other person without the patient's specific authorization.[facility] Social History Tobacco Use Types Packs/Day Years Used Date Smoking Tobacco: Never Assessed Social Connections Answer Date Recorded Social Connections and Isolation 0 11/09/2019 Financial Resource Strain Answer Date R ecorded Financial Resource Strain 0 2019 Stress Answer Date Recorded Stress 0 11/09/2019 Physical Activity Answer Date Recorded Physical Activity 0 11/09/2019 Food Insecurity Answer Date Recorded Food 0 11/09/2019 Transportation Needs Answer Date Record ed Transportation 0 11/09/2019 Housing Stability Answer Date Recorded Housing 0 11/09/2019 Safety and Environment Answer Date Troy rded Safety 0 11/09/2019 Utilities Answer Date Recorded Utilities 0 11/09/2019 Employment Answer Date Recorded Employment 0 11/09/2019 Sex and Gender Information Value Date Recorded Sex Assigned at Not on file Legal Sex Male 6:52 AM PST Gender Identity Not on file Sexual Orientation Not on file Plan of Treatment Not on file Insurance [place] [facility] [place] MEDICAID
== END 2024-11-08 11:34 | disposition home or self-care (01) ==
LOC: HO.HMCH 09:56
PROVIDERS: PCP Internal Medicine; Visit Provider Internal Medicine
DX: E11.9 Type 2 diabetes mellitus without complications (principal)

== ENCOUNTER → 2024-11-08 09:56 | Outpatient (BNVA) | payer OTHER, SELFPAY | PROVIDERS: PCP Internal Medicine; Visit Provider Internal Medicine | DX: E11.9 Type 2 diabetes mellitus without complications (principal); F33.2 Major depressive disorder, recurrent severe without psychotic features | CPT/HCPCS: 83036; 99212 ==

== ENCOUNTER 2024-11-28 06:51 | Outpatient (REF) | payer OTHER, SELFPAY ==
--- OUTSIDE RECORDS SUMMARY | 2024-11-28 06:54 | XMS_ITS | Clinical Summary ---
Author Organization [facility] Address [address] [place] [address] Care Team Providers Care Painter Shipyard Name Role Phone Unavailable Primary Care Provider [...] Plan of Treatment Not on file Insurance [place] D[place] [facility] NET D[place]AL [place]
[2024-11-28 07:26] LABS: Appearance Urine Clear; Color Urine Yellow; Glucose Urine UA >=1000 mg/dL (Negative); Leukocyte Esterase Urine Negative (Negative); Nitrite Urine Negative (Negative); PH 6.5 (5.0-9.0); Specific Gravity - Urine >= 1.030 (1.005-1.025); UMIC TRIGGER UA YES; Urine Blood Negative (Negative); Urine Ketones Negative (Negative); Urine Protein Negative (Neg-Trace)
[2024-11-28 07:37] LABS: Bacteria Urine None Seen (None Seen); Hyaline Casts Urine 0-2 /LPF (0-2); RBC Urine 0-2 /HPF (0-2); Squamous Epithelial Cell Urine 0-2 /HPF (0-2); WBC Urine 0-5 /HPF (0-5)
[2024-11-28 07:52] LABS: Hematocrit 47.5 % (42.0-52.0); Hemoglobin 16.3 g/dl (14.0-18.0); Mean Corpuscular HGB Conc 34.3 g/dl (31.0-36.0); Mean Corpuscular Hemoglobin 28.3 pg (27.0-33.0); Mean Corpuscular Volume 82.5 fL (80.0-98.0); Mean Platelet Volume 10.4 fL (9.4-12.4); Platelet Count 281 X10*3/uL (160-400); Red Blood Count 5.76 X10*6/uL (4.60-5.80); Red Cell Distribution Width 13.2 % (11.0-16.0); White Blood Count 8.3 X10*3/uL (4.8-10.8)
[2024-11-28 07:55] LABS: Creatinine Urine 93.46 mg/dL; Microalbumin Urine < 5.0 mg/L
[2024-11-28 08:04] LABS: Albumin Level 4.4 g/dL (3.5-5.0); Alkaline Phosphatase 105 U/L (39-117); Anion Gap 14 (12-20); Aspartate Amino Transferase 35 U/L (5-37); Bilirubin Direct 0.2 mg/dL (0.0-0.5); Bilirubin Total 0.7 mg/dL (0.0-1.0); Blood Urea Nitrogen 11 mg/dL (9-16); Calcium 9.2 mg/dL (8.4-10.2); Carbon Dioxide 28 mmol/L (22-29); Chloride 103 mmol/L (96-108); Cholesterol 161 mg/dL (<200); Estimated Glomerular Filt Rate > 60; Glucose Random 115 mg/dL (60-115); HDL Cholesterol 49 mg/dL (>40); LDL Cholesterol Calculated 81 mg/dL (<100); Potassium 3.6 mmol/L (3.3-5.1); Sodium 141 mmol/L (135-145); Total Protein 7.3 g/dL (6.5-8.0); Triglycerides 158 mg/dL (<150)
[2024-11-28 08:22] LABS: Alanine Aminotransferase 36 U/L (0-40)
[2024-11-28 08:36] LABS: Thyroid Stimulating Hormone 2.48 uIU/mL (0.32-4.0)
[2024-11-29 05:31] LABS: CRP High Sensitivity 1.5 mg/L
== END 2024-11-28 06:52 | disposition home or self-care (01) ==
LOC: HO.LAB 06:51
PROVIDERS: Internal Medicine Cardiovascular Disease; PCP Internal Medicine; Visit Provider Internal Medicine
DX: E11.9 Type 2 diabetes mellitus without complications (principal); E78.5 Hyperlipidemia, unspecified; I25.10 Atherosclerotic heart disease of native coronary artery without angina pectoris; I25.84 Coronary atherosclerosis due to calcified coronary lesion; F33.2 Major depressive disorder, recurrent severe without psychotic features
CPT/HCPCS: 36415; 80048; 80061; 80076; 81001; 82570; 84443; 85027; 86141

== ENCOUNTER 2024-12-12 13:20 | Outpatient (AMB) | payer OTHER, SELFPAY ==
--- NOTE | 2024-12-12 13:25 | A.OFFVIS_ITS ---
Vital Signs 12/12/24 13:26 Height 5 ft 6 in Weight 165 lb 5.547 oz BMI 26.7 BP 140/80 H Blood Pressure Location Lt brachial Position Sitting Pulse 87 Intake Visit Reasons: [facility]/Chest pain/ ed follow up Intake Note: Follow-up was at [facility] for chest pain but what is being describled is lower back pain and is now in the right shoulder also Career Technical Supervisor Required: No Special Education Supervisor: Special Education Supervisor Present Allergies No Known Allergies Allergy (Verified 11/09/24 18:01) Medication List - Last Reconciled 12/12/24 by Martín Shi MD amlodipine 5 mg PO DAILY aspirin 81 mg PO DAILY atorvastatin 80 mg PO DAILY blood sugar diagnostic (FreeStyle Lite Strips) As directed blood-glucose meter (FreeStyle [place] kit) To be tested one time daily [diabetic shoes As directed] dulaglutide (Trulicity) 0.75 mg (0.5 mL) subcut QWEEK duloxetine 30 mg PO DAILY empagliflozin (Jardiance) 25 mg PO DAILY glipizide 5 mg PO DAILY hydrochlorothiazide 25 mg PO DAILY ketoconazole 2% 1 appl topical DAILY lancets (FreeStyle Lancets) As directed One time daily metformin 500 mg PO BID multivitamin (Daily-Jesse tablet) 1 tab PO DAILY pantoprazole 40 mg PO DAILY tadalafil (Cialis) 5 mg PO DAILY valsartan 320 mg PO DAILY HPI Comments Details: Phil comes for follow-up urgently accompanied by his son due to recent presentation to [facility] Emergency room with left-sided chest discomfort. He said he had workup at that point time. Symptoms were quite different than his acute coronary syndrome. Symptoms of sharp pressure like symptoms in his left lower ribcage area. He subsequently had EKGs and serial troponins and they were all negative. He was told that he might have had gastric related discomfort but was advised to seek emergency care if he had recurrent chest pain and follow up with Cardiology. He subsequently has developed significant right-sided lumbar discomfort after injury. He is disabled because of that currently. He is taking all his medications. [facility] Medical History Annual physical exam GERD (gastroesophageal reflux disease) Borderline hypercholesterolemia Essential (primary) hypertension Coronary artery disease Diabetes mellitus Surgical History H/O colonoscopy (~08/19/22) H/O hernia repair History of heart artery stent Family History Mother No problems noted. Father No problems noted. Social History Housing: House Alcohol intake: never Patient Tobacco Use Status: Never used Tobacco e-Cigarette/Vaping Use: Never Used Second Hand Smoke Exposure: No service: No Current occupational status: employed Current occupational exposures/hazards: No Cognitive needs: No Hearing needs: No Vision needs: No Review of Systems Const Denies chills, Denies fatigue, Denies fever(s), Denies frequent falls, Denies weakness, Denies weight gain and Denies weight loss ENT Denies dizziness Card Denies chest pain, Denies leg edema, Denies lightheadedness, Denies palpitations, Denies dyspnea, Denies dyspnea on exertion, Denies orthopnea and Denies other (loss of consciousness) Resp Denies cough, Denies dyspnea and Denies dyspnea on exertion GI Denies hematochezia and Denies change in stool character Musc Denies abnormal gait, Denies muscle weakness, Denies numbness, Denies radiating pain into limb and Denies tingling Neuro Denies abnormal gait, Denies dizziness, Denies frequent falls, Denies numbness, Denies tingling and Denies weakness Endo Denies fatigue and Denies palpitations Physical Exam Vital Signs: Last Vital Signs Pulse 87 12/12/24 13:26 BP 140/80 H 12/12/24 13:26 BMI result Body Mass Index 26.7 Const General: cooperative, comfortable, no acute distress, alert, awake and Physically active Nutritional Appearance: average body habitus and well nourished Orientation/consciousness: patient oriented x3 Limitations: no limitations HEENT Head: Yes normocephalic and Yes atraumatic Neck Neck: Yes trachea midline, Yes supple and Yes no JVD Resp Effort & Inspection: normal respiratory effort Auscultation: clear to auscultation bilaterally Cardio Jugular venous distension: no JVD Palpation: normal PMI Rate: regular rate Rhythm: regular rhythm Heart sounds: S1 normal heart sound present, S2 normal heart sound present, no click, no gallops, no murmurs and no rubs GI Auscultation: normal bowel sounds Skin General skin exam: no rashes or lesions noted Neuro General: patient oriented x3 and no focal motor deficits Extrem General: Yes no clubbing, cyanosis or edema Assessment & Plan Assessment & Plan (1) Coronary artery disease: Code(s): I25.10 - Atherosclerotic heart disease of [place] coronary artery without angina pectoris Category: Medical Qualifiers: Coronary Disease-Associated Artery/Lesion type: due to calcified coronary lesion Qualified Code(s): I25.10 - Atherosclerotic heart disease of [place] coronary artery without angina pectoris; I25.84 - Coronary atherosclerosis due to calcified coronary lesion Plan: CAD with prior drug-eluting stent to LAD and RCA for acute coronary syndrome in 2020. Currently having atypical chest pain syndrome. See below. He is currently on good medications including lifelong aspirin therapy which should continue. Continue high-intensity statin therapy with target goal LDL less than 60 mg/dL. Continue aggressive diabetes management through your office. Continue aggressive blood pressure control as well. (2) Essential (primary) hypertension: Code(s): I10 - Essential (primary) hypertension Category: Medical Plan: Blood pressure which is currently well optimized. Continue current therapy. Importance of good blood pressure control was discussed. Importance of all these medications were discussed with him. He was worried that these might be affecting his overall health although I suggested that country in these medicines are overall helping him with controlling and reducing his cardiovascular risk. He understands agrees. Low-salt diet was discussed advised to monitor blood pressure at home maintain a log. (3) Atypical chest pain: Code(s): R07.89 - Other chest pain Plan: Patient was recent left-sided precordial chest pain with atypical features. No evidence of acute coronary syndrome at that point time. Given his prior coronary disease and multiple risk factors will pursue vasodilating myocardial perfusion imaging to rule out any evidence of myocardial ischemia. The tests will be scheduled in near future. If he is able to exercise by that point time from his lumbar back pain perspective will proceed with exercise myocardial perfusion imaging. Will follow up in the clinic in 6 months time, sooner p.r.n.. Thank you for allowing me to partake in his care Orders: Orders CA lexiscan stress w reanna Today I25.10 - Atherosclerotic heart disease of [place] coronary artery without angina pectoris, I25.84 - Coronary atherosclerosis due to calcified coronary lesion, R07.89 - Other chest pain Coding Level of Care Code Est Pt Level 4 (08241) Complex EM visit Add On G2211 Diagnoses Coronary artery disease due to calcified coronary lesion I25.10; I25.84 Coronary Disease-Associated Artery/Lesion type: due to calcified coronary lesion Essential (primary) hypertension I10 Atypical chest pain R07.89
[2024-12-12 13:26] VITALS: BP 140/80; PULSE 87; BMI 26.7
--- OUTSIDE RECORDS SUMMARY | 2024-12-12 14:42 | XMS_ITS | Clinical Summary ---
Author Organization [facility] Address [address] [place] [address] Phone Care Team Providers Care Concrete Fence Builder Name Role Phone Albert Joyce MD Primary Care Provider [phone] Allergies No known active allergies Medications nitroglycerin (NITROSTAT) 0.[address] 1 tablet (0.4 mg total) under the tongue every 5 (five) minutes if needed for chest pain. 90 tablet 09/21/2024 Active Encounters Date Type Department Care Team Description 09/21/2024 7:11 AM EST - 09/21/2024 11:22 AM EST Emergency [facility] Emergency [address] [place] [address] Alexi Javier MD Chest pain, [...] - 2023-2 5 season) 2024 12/30/2020, 12/09/2020 Diabetes: Annual Urine Albumin-Creatinine Ratio (uACR) 09/21/2024 Diabetes: Blood Sugar Contro l Test (HGBA1C) 09/21/2024 Influenza Vaccine (Season Ended) 2025 06/24/2022, 05/01/2019 Diabetes: Annual GFR (Glomerular Filtration Rate) 09/21/2025 09/21/2024 Hypertension/CHF/CAD Annual BMP Blood Test 09/21/2025 09/21/2024 RSV Immunization Adult Patients (1 - 1-dose 75+ series) 2037 HIB [...] age to complete this topic Meningococcal B Vaccine Aged Out No l onger eligible based on patient's age to complete [...] Signed Date: 09/21/2024 10:50 ET Workstation ID: [id number] Transcribed By: Self Edit Transcribed Date: 09/21/2024 [...] Signed Date: 09/21/2024 10:50 ET Workstation ID: [id number] Transcribed By: Self Edit Transcribed Date: 09/21/2024 10:33 ET us Alexi Javier MD [facility] [place] PROCEDURES Final Res ult * ECG 12 lead (09/21/2024 8:37 AM EST) Only the most recent of2 resultswithin the time period is included. Ventricular Rate ECG 77 BPM GEMUSE Atrial Rate 77 BPM GEMUSE P-R Interval 200 ms GEMUSE QRS Duration 102 ms GEMUSE Q-T Interval 382 ms GEMUSE QTc 432 ms GEMUSE P Wave [place] 38 degrees GEMUSE R [place] -38 degrees GEMUSE T [place] 1 degrees GEMUSE ECG Interpretation Normal sinus rhythm Left axis deviation Incomplete right bundle branch block Septal infarct (cited on or before 05-FEB-2022) T wave abnormality, consider lateral ischemia Abnormal ECG When compared with ECG of 21-SEP-2024 07:49, (unconfirmed) No significant change was found Confirmed by Scarlet WILDE YUFENG ([id number]) on 09/22/2024 11:18:13 AM GEMUSE 09/21/2024 8:37 AM EST 09/22/2024 11:18 AM EST Alexi Javier MD ECG ORDERABLES Final Resul t GEMUSE * Troponin I high sensitivity (09/21/2024 8:17 AM EST) Only the most recent of2 resultswithin the time period is included. Pathologist [facility] [place] High Sensitivity Troponin I 10 <=79 ng/L LAB CHEMISTRY METHOD 09/21/2024 9:44 AM EST [facility] Blood Venous blood specimen / Unknown Venipuncture / Unknown 09/21/2024 8:17 AM EST 09/21/2024 9:19 AM EST Narrative [facility] - 09/21/2024 9:44 AM EST High levels of biotin in samples may falsely decrease hsTroponin values. ??Use caution when interpreting hsTroponin results in patients taking biotin who exhibit renal impairment (eGFR <60) or in patients taking more than 20 mg/day of biotin. Alexi Javier MD LAB BLOOD ORDERABLES Final Result Performing Organization Address [facility]/ZIP Co de Phone Number [facility] [address] [place] [address], * XR Chest 2 Views (09/21/2024 7:47 [...] Signed Date: 09/21/2024 08:16 ET Workstation ID: [id number] Transcribed By: Self Edit Transcribed Date: 09/21/2024 [...] Signed Date: 09/21/2024 08:16 ET Workstation ID: [id number] Transcribed By: Self Edit Transcribed Date: 09/21/2024 08:15 ET Alexi Javier MD IMG XR PROCEDURES Final Res ult * (ABNORMAL) Respiratory virus panel molecular study (09/21/2024 7:26 AM EST) Pathologist [facility] Adenovirus Detection by PCR Not Detected Not Detected LAB MICROBIOLOGY METHOD 09/21/2024 8:41 AM EST [facility] Influenza A PCR Not Detected Not Detected LAB MICROBIOLOGY METHOD 09/21/2024 8:41 AM EST [facility] Influenza B PCR Not Detected Not Detected LAB MICROBIOLOGY METHOD 09/21/2024 8:41 AM EST [facility] Coronavirus 229E Not Detected Not Detected LAB MICROBIOLOGY METHOD 09/21/2024 8:41 AM [facility] Coronavirus HKU1 Not Detected Not Detected LAB MICROBIOLOGY METHOD 09/21/2024 8:41 AM [facility] Coronavirus OC43 Detected(A ) Not Detected LAB MICROBIOLOGY METHOD 09/21/2024 8:41 AM [facility] Coronavirus NL63 Not Detected Not Detected LAB MICROBIOLOGY METHOD 09/21/2024 8:41 AM [facility] Parainfluenza Virus 1 Not Detected Not Detected LAB MICROBIOLOGY METHOD 09/21/2024 8:41 AM [facility] Parainfluenza Virus 2 Not Detected Not Detected LAB MICROBIOLOGY METHOD 09/21/2024 8:41 AM [facility] Parainfluenza Virus 3 Not Detected Not Detected LAB MICROBIOLOGY METHOD 09/21/2024 8:41 AM [facility] Parainfluenza Virus 4 Not Detected Not Detected LAB MICROBIOLOGY METHOD 09/21/2024 8:41 AM [facility] RSV PCR Not Detected Not Detected LAB MICROBIOLOGY METHOD 09/21/2024 8:41 AM [facility] Human Metapneumovirus A and B Not Detected Not Detected LAB MICROBIOLOGY METHOD 09/21/2024 8:41 AM [facility] Rhinovirus/Entero virus Not Detected Not Detected LAB MICROBIOLOGY METHOD 09/21/2024 8:41 AM [facility] Bordetella pertussis Not Detected Not Detected LAB MICROBIOLOGY METHOD 09/21/2024 8:41 AM [facility] Bordetella parapertussis Not Detected Not Detected LAB MICROBIOLOGY METHOD 09/21/2024 8:41 AM [facility] Mycoplasma pneumo by PCR Not Detected Not Detected LAB MICROBIOLOGY METHOD 09/21/2024 8:41 AM [facility] Chlamydia pneumoniae Not Detected Not Detected LAB MICROBIOLOGY METHOD 09/21/2024 8:41 AM [facility] SARS COV-2 Not Detected Not Detected LAB MICROBIOLOGY METHOD 09/21/2024 8:41 AM [facility] Aspirate Both anterior nares / Unknown Non-blood Collection / Unknown 09/21/2024 7:26 AM EST 09/21/2024 7:40 AM EST [facility] - 09/21/2024 8:41 AM EST Testing was performed using the [employer] Respiratory Pathogen PCR Assay. All results must [...] that are below the limit of detection. Alexi Javier MD LAB MICROBIOLOGY - GENERAL ORDERABLES Final Result [facility] [address] [place] [address], * (ABNORMAL) CBC auto differential (09/21/2024 7:25 AM EST) WBC 8.9 4.8 - 10.8 K/mcL LAB HEMETOLOGY METHOD 09/21/2024 7:48 AM [facility] RBC 5.30 4.50 - 5.50 M/mcL LAB HEMETOLOGY METHOD 09/21/2024 7:48 AM [facility] Hemoglobin 15.0 13.5 - 17.5 g/dL LAB HEMETOLOGY METHOD 09/21/2024 7:48 AM [facility] Hematocrit 44.1 42.0 - 54.0 % LAB HEMETOLOGY METHOD 09/21/2024 7:48 AM [facility] MCV 83.7 79.0 - 98.0 FL LAB HEMETOLOGY METHOD 09/21/2024 7:48 AM [facility] MCH 28.5 27.0 - 32.0 pcg LAB HEMETOLOGY METHOD 09/21/2024 7:48 AM [facility] MCHC 34.0 32.0 - 37.0 g/dL LAB HEMETOLOGY METHOD 09/21/2024 7:48 AM [facility] RDW 13.2 11.0 - 15.0 % LAB HEMETOLOGY METHOD 09/21/2024 7:48 AM [facility] Platelets 224 130 - 400 K/mcL LAB HEMETOLOGY METHOD 09/21/2024 7:48 AM [facility] MPV 10.3 7.0 - 11.0 FL LAB HEMETOLOGY METHOD 09/21/2024 7:48 AM [facility] NRBC 0.0 <1.0 % LAB HEMETOLOGY METHOD 09/21/2024 7:48 AM [facility] NRBC Absolute 0.00 <0.10 K/mcL LAB HEMETOLOGY METHOD 09/21/2024 7:48 AM [facility] Neutrophils Relative 52.8 % LAB HEMETOLOGY METHOD 09/21/2024 7:48 AM [facility] Lymphocytes Relative 26.8 % LAB HEMETOLOGY METHOD 09/21/2024 7:48 AM [facility] Monocytes Relative 16.1 % LAB HEMETOLOGY METHOD 09/21/2024 7:48 AM [facility] Eosinophils Relative 3.4 % LAB HEMETOLOGY METHOD 09/21/2024 7:48 AM [facility] Basophils Relative 0.7 % LAB HEMETOLOGY METHOD 09/21/2024 7:48 AM [facility] Immature Granulocytes Relative 0.2 % LAB HEMETOLOGY METHOD 09/21/2024 7:48 AM [facility] Neutrophils Absolute 4.70 1.50 - 7.00 K/mcL LAB HEMETOLOGY METHOD 09/21/2024 7:48 AM EST [facility] Lymphocytes Absolute 2.38 1.00 - 5.00 K/mcL LAB HEMETOLOGY METHOD 09/21/2024 7:48 AM EST [facility] Monocytes Absolute 1.43(H) 0.20 - 1.00 K/mcL LAB HEMETOLOGY METHOD 09/21/2024 7:48 AM EST [facility] Eosinophils Absolute 0.30 0.00 - 0.50 K/[facility] HEMETOLOGY METHOD 09/21/2024 7:48 AM EST [facility] Basophils Absolute 0.06 0.00 - 0.20 K/[facility] HEMETOLOGY METHOD 09/21/2024 7:48 AM EST [facility] Immature Granulocytes Absolute 0.02 0.00 - 0.03 K/[facility] HEMETOLOGY METHOD 09/21/2024 7:48 AM EST [facility] Blood Venous blood specimen / Unknown Venipuncture / Unknown 09/21/2024 7:25 AM EST 09/21/2024 7:41 AM EST Alexi Javier MD LAB BLOOD ORDERABLES Final Result [facility] [address] [place] [address], * B-type natriuretic peptide (09/21/2024 7:25 AM EST) BNP 6 <=100 pcg/mL LAB CHEMISTRY METHOD 09/21/2024 8:16 AM EST [facility] Blood Venous blood specimen / Unknown Venipuncture / Unknown 09/21/2024 7:25 AM EST 09/21/2024 7:41 AM EST Alexi Javier MD LAB BLOOD ORDERABLES Final Result [facility] [address] [place] [address], [place] [phone] * Magnesium (09/21/2024 7:25 AM EST) [facility] Magnesium 2.3 1.9 - 2.6 mg/dL LAB CHEMISTRY METHOD 09/21/2024 8:14 AM EST [facility] Blood Venous blood specimen / Unknown Venipuncture / Unknown 09/21/2024 7:25 AM EST 09/21/2024 7:41 AM EST Alexi Javier MD LAB BLOOD ORDERABLES Final Result Performing Organization Address [facility]/ZIP Co de Phone Number [facility] [address] [place] [address], [place] [phone] * Lipase (09/21/2024 7:25 AM EST) [facility] Lipase 32 13 - 75 unit/L LAB CHEMISTRY METHOD 09/21/2024 8:14 AM EST [facility] Blood Venous blood specimen / Unknown Venipuncture / Unknown 09/21/2024 7:25 AM EST 09/21/2024 7:41 AM EST Alexi Javier MD LAB BLOOD ORDERABLES Final Result Performing Organization Address City/[facility]/ZIP Co de Phone Number [facility] [address] [place] [address], [place] [phone] * (ABNORMAL) Comprehensive metabolic panel (09/21/2024 7:25 AM EST) [facility] Sodium 136 133 - 145 mmol/L LAB CHEMISTRY METHOD 09/21/2024 8:14 AM EST [facility] Potassium 3.0(L) 3.5 - 5.5 mmol/L LAB CHEMISTRY METHOD 09/21/2024 8:14 AM EST [facility] Chloride 101 96 - 110 mmol/L LAB CHEMISTRY METHOD 09/21/2024 8:14 AM [facility] CO2 30 21 - 32 mmol/L LAB CHEMISTRY METHOD 09/21/2024 8:14 AM [facility] Anion Gap 5 3 - 11 LAB CHEMISTRY METHOD 09/21/2024 8:14 AM [facility] Glucose 200(H) 70 - 100 mg/dL LAB CHEMISTRY METHOD 09/21/2024 8:14 AM [facility] BUN 19 5 - 25 mg/dL LAB CHEMISTRY METHOD 09/21/2024 8:14 AM [facility] Creatinine 0.96 0.70 - 1.30 mg/dL LAB CHEMISTRY METHOD 09/21/2024 8:14 AM [facility] eGFR 90 >=60 mL/min/1. 73m2 LAB CHEMISTRY METHOD 09/21/2024 8:14 AM [facility] Comment:Calculation based on the??Chronic Kidney Disease Epidemiology Collaboration (CKD-EPI) equation refit??without adjustment for race. BUN/Creatinine Ratio 19.8 LAB CHEMISTRY METHOD 09/21/2024 8:14 AM [facility] Calcium 8.7 8.5 - 10.5 mg/dL LAB CHEMISTRY METHOD 09/21/2024 8:14 AM [facility] AST (SGOT) 28 10 - 42 unit/L LAB CHEMISTRY METHOD 09/21/2024 8:14 AM [facility] ALT (SGPT) 37 10 - 60 unit/L LAB CHEMISTRY METHOD 09/21/2024 8:14 AM [facility] Alkaline Phosphatase 91 42 - 121 unit/L LAB CHEMISTRY METHOD 09/21/2024 8:14 AM [facility] Total Protein 6.8 6.0 - 8.0 g/dL LAB CHEMISTRY METHOD 09/21/2024 8:14 AM [facility] Albumin 3.6 3.2 - 5.0 g/dL LAB CHEMISTRY METHOD 09/21/2024 8:14 AM EST [facility] Total Bilirubin 0.6 0.0 - 1.4 mg/dL LAB CHEMISTRY METHOD 09/21/2024 8:14 AM EST [facility] Blood Venous blood specimen / Unknown Venipuncture / Unknown 09/21/2024 7:25 AM EST 09/21/2024 7:41 AM EST us Alexi Javire MD LAB BLOOD ORDERABLES Final Result [facility] [address] [place] [address], * ECG-Annotated (09/21/2024) Only the most recent of4 resultswithin the time period is included. us Provider Onbase MD ECG ORDERABLES Final Result from Last 3 Months Additional Health Concerns Infection Onset Date Last Indicated Coronavirus 09/21/2024 09/21/2024 Insurance [facility] [employer] Care Teams Concrete Fence Builder Relationship Specialty Start Date End Date Albert Joyce MD [address] [place] [address] Dr Gamaliel Rahman [place] PCP - General Internal Medicine 11/28/18
--- OUTSIDE RECORDS SUMMARY | 2024-12-12 14:42 | XMS_ITS | Clinical Summary ---
Author Organization [facility] Address [address] [place] [address] Care Team Providers Care Flexo Operator Name Role Phone Unavailable Primary Care Provider [...] Plan of Treatment Not on file Insurance ID MEDICAID DENTAL [facility] NET DENTAL ID MEDICAID
== END 2024-12-12 14:00 | disposition home or self-care (01) ==
LOC: HO.HCS 13:21
PROVIDERS: PCP Internal Medicine; Visit Provider Internal Medicine Cardiovascular Disease
DX: I25.10 Atherosclerotic heart disease of native coronary artery without angina pectoris (principal); I25.84 Coronary atherosclerosis due to calcified coronary lesion; I10 Essential (primary) hypertension; R07.89 Other chest pain
CPT/HCPCS: 99214; G2211

== ENCOUNTER → 2024-12-12 13:20 | Outpatient (BNVA) | payer OTHER, SELFPAY | PROVIDERS: PCP Internal Medicine; Visit Provider Internal Medicine Cardiovascular Disease | DX: R07.9 Chest pain, unspecified (principal); I25.10 Atherosclerotic heart disease of native coronary artery without angina pectoris; I25.84 Coronary atherosclerosis due to calcified coronary lesion; I10 Essential (primary) hypertension; R07.89 Other chest pain | CPT/HCPCS: 99212 ==

== ENCOUNTER 2024-12-13 13:47 | Outpatient (AMB) | payer OTHER, SELFPAY ==
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
[2024-12-13 14:22] VITALS: BP 130/90; PULSE 80; TEMP 36.6; O2SAT 98
--- OUTSIDE RECORDS SUMMARY | 2024-12-13 16:02 | XMS_ITS | Clinical Summary ---
Author Organization [facility] Address [address] [place] [address] Phone Care Team Providers Care Toolroom Attendant Name Role Phone Albert Joyce MD Primary Care Provider [phone] Allergies No known active allergies Medications nitroglycerin (NITROSTAT) 0.[address] 1 tablet (0.4 mg total) under the tongue every 5 (five) minutes if needed for chest pain. 90 tablet 09/21/2024 Active Encounters Date Type Department Care Team Description 09/21/2024 7:11 AM EST - 09/21/2024 11:22 AM EST Emergency [facility] Emergency [address] [place] [address] Alexi Javier MD Chest pain, [...] Signed Date: 09/21/2024 10:50 ET Workstation ID: [id number] Transcribed By: Self Edit Transcribed Date: 09/21/2024 [...] Signed Date: 09/21/2024 10:50 ET Workstation ID: [id number] Transcribed By: Self Edit Transcribed Date: 09/21/2024 10:33 ET us Alexi Javier MD [facility] CT PROCEDURES Final Res ult * ECG 12 lead (09/21/2024 8:37 AM EST) Only the most recent of2 resultswithin the time period is included. Ventricular Rate ECG 77 BPM GEMUSE Atrial Rate 77 BPM GEMUSE P-R Interval 200 ms GEMUSE QRS Duration 102 ms GEMUSE Q-T Interval 382 ms GEMUSE QTc 432 ms GEMUSE P Wave [place] 38 degrees GEMUSE R [place] -38 degrees GEMUSE T [place] 1 degrees GEMUSE ECG Interpretation Normal sinus [...] resultswithin the time period is included. Pathologist [facility] High Sensitivity Troponin I 10 <=79 ng/L LAB CHEMISTRY METHOD 09/21/2024 9:44 AM EST [facility] Blood Venous blood specimen / Unknown Venipuncture / Unknown 09/21/2024 8:17 AM EST 09/21/2024 9:19 AM EST Narrative [facility] - 09/21/2024 9:44 AM EST High levels of biotin in samples may falsely decrease hsTroponin values. ??Use caution when interpreting hsTroponin results in patients taking biotin who exhibit renal impairment (eGFR <60) or in patients taking more than 20 mg/day of biotin. Alexi Javier MD LAB BLOOD ORDERABLES Final Result Performing Organization Address [facility]/ZIP Co de Phone Number [facility] [address] [place] [address], * XR Chest 2 Views (09/21/2024 7:47 [...] Signed Date: 09/21/2024 08:16 ET Workstation ID: [id number] Transcribed By: Self Edit Transcribed Date: 09/21/2024 [...] Signed Date: 09/21/2024 08:16 ET Workstation ID: [id number] Transcribed By: Self Edit Transcribed Date: 09/21/2024 08:15 ET Alexi Javier MD IMG XR PROCEDURES Final Res ult * (ABNORMAL) Respiratory virus panel molecular study (09/21/2024 7:26 AM EST) Pathologist [facility] Adenovirus Detection by PCR Not Detected Not Detected LAB MICROBIOLOGY METHOD 09/21/2024 8:41 AM EST [facility] Influenza A PCR Not Detected Not Detected LAB MICROBIOLOGY METHOD 09/21/2024 8:41 AM EST [facility] Influenza B PCR Not Detected Not Detected LAB MICROBIOLOGY METHOD 09/21/2024 8:41 AM EST [facility] Coronavirus 229E Not Detected Not Detected LAB MICROBIOLOGY METHOD 09/21/2024 8:41 AM [facility] Coronavirus HKU1 Not Detected Not Detected LAB MICROBIOLOGY METHOD 09/21/2024 8:41 AM [facility] Coronavirus OC43 Detected(A ) Not Detected LAB MICROBIOLOGY METHOD 09/21/2024 8:41 AM [facility] Coronavirus NL63 Not Detected Not Detected LAB MICROBIOLOGY METHOD 09/21/2024 8:41 AM [facility] Parainfluenza Virus 1 Not Detected Not Detected LAB MICROBIOLOGY METHOD 09/21/2024 8:41 AM [facility] Parainfluenza Virus 2 Not Detected Not Detected LAB MICROBIOLOGY METHOD 09/21/2024 8:41 AM [facility] Parainfluenza Virus 3 Not Detected Not Detected LAB MICROBIOLOGY METHOD 09/21/2024 8:41 AM [facility] Parainfluenza Virus 4 Not Detected Not Detected LAB MICROBIOLOGY METHOD 09/21/2024 8:41 AM [facility] RSV PCR Not Detected Not Detected LAB MICROBIOLOGY METHOD 09/21/2024 8:41 AM [facility] Human Metapneumovirus A and B Not Detected Not Detected LAB MICROBIOLOGY METHOD 09/21/2024 8:41 AM [facility] Rhinovirus/Entero virus Not Detected Not Detected LAB MICROBIOLOGY METHOD 09/21/2024 8:41 AM [facility] Bordetella pertussis Not Detected Not Detected LAB MICROBIOLOGY METHOD 09/21/2024 8:41 AM [facility] Bordetella parapertussis Not Detected Not Detected LAB MICROBIOLOGY METHOD 09/21/2024 8:41 AM [facility] Mycoplasma pneumo by PCR Not Detected Not Detected LAB MICROBIOLOGY METHOD 09/21/2024 8:41 AM [facility] Chlamydia pneumoniae Not Detected Not Detected LAB MICROBIOLOGY METHOD 09/21/2024 8:41 AM [facility] SARS COV-2 Not Detected Not Detected LAB MICROBIOLOGY METHOD 09/21/2024 8:41 AM [facility] Aspirate Both anterior nares / Unknown Non-blood Collection / Unknown 09/21/2024 7:26 AM EST 09/21/2024 7:40 AM EST [facility] - 09/21/2024 8:41 AM EST Testing was performed using the [employer] Respiratory Pathogen PCR Assay. All results must [...] LAB MICROBIOLOGY - GENERAL ORDERABLES Final Result [facility] [address] [place] [address], * (ABNORMAL) CBC auto differential (09/21/2024 7:25 AM EST) WBC 8.9 4.8 - 10.8 K/mcL LAB HEMETOLOGY METHOD 09/21/2024 7:48 AM [facility] RBC 5.30 4.50 - 5.50 M/mcL LAB HEMETOLOGY METHOD 09/21/2024 7:48 AM [facility] Hemoglobin 15.0 13.5 - 17.5 g/dL LAB HEMETOLOGY METHOD 09/21/2024 7:48 AM [facility] Hematocrit 44.1 42.0 - 54.0 % LAB HEMETOLOGY METHOD 09/21/2024 7:48 AM [facility] MCV 83.7 79.0 - 98.0 FL LAB HEMETOLOGY METHOD 09/21/2024 7:48 AM [facility] MCH 28.5 27.0 - 32.0 pcg LAB HEMETOLOGY METHOD 09/21/2024 7:48 AM [facility] MCHC 34.0 32.0 - 37.0 g/dL LAB HEMETOLOGY METHOD 09/21/2024 7:48 AM [facility] RDW 13.2 11.0 - 15.0 % LAB HEMETOLOGY METHOD 09/21/2024 7:48 AM [facility] Platelets 224 130 - 400 K/mcL LAB HEMETOLOGY METHOD 09/21/2024 7:48 AM [facility] MPV 10.3 7.0 - 11.0 FL LAB HEMETOLOGY METHOD 09/21/2024 7:48 AM [facility] NRBC 0.0 <1.0 % LAB HEMETOLOGY METHOD 09/21/2024 7:48 AM [facility] NRBC Absolute 0.00 <0.10 K/mcL LAB HEMETOLOGY METHOD 09/21/2024 7:48 AM [facility] Neutrophils Relative 52.8 % LAB HEMETOLOGY METHOD 09/21/2024 7:48 AM [facility] Lymphocytes Relative 26.8 % LAB HEMETOLOGY METHOD 09/21/2024 7:48 AM [facility] Monocytes Relative 16.1 % LAB HEMETOLOGY METHOD 09/21/2024 7:48 AM [facility] Eosinophils Relative 3.4 % LAB HEMETOLOGY METHOD 09/21/2024 7:48 AM [facility] Basophils Relative 0.7 % LAB HEMETOLOGY METHOD 09/21/2024 7:48 AM [facility] Immature Granulocytes Relative 0.2 % LAB HEMETOLOGY METHOD 09/21/2024 7:48 AM [facility] Neutrophils Absolute 4.70 1.50 - 7.00 K/mcL LAB HEMETOLOGY METHOD 09/21/2024 7:48 AM EST [facility] Lymphocytes Absolute 2.38 1.00 - 5.00 K/mcL LAB HEMETOLOGY METHOD 09/21/2024 7:48 AM EST [facility] Monocytes Absolute 1.43(H) 0.20 - 1.00 K/mcL LAB HEMETOLOGY METHOD 09/21/2024 7:48 AM EST [facility] Eosinophils Absolute 0.30 0.00 - 0.50 K/[facility] LAB HEMETOLOGY METHOD 09/21/2024 7:48 AM EST [facility] Basophils Absolute 0.06 0.00 - 0.20 K/[facility] LAB HEMETOLOGY METHOD 09/21/2024 7:48 AM EST [facility] Immature Granulocytes Absolute 0.02 0.00 - 0.03 K/[facility] LAB HEMETOLOGY METHOD 09/21/2024 7:48 AM EST [facility] Blood Venous blood specimen / Unknown Venipuncture / Unknown 09/21/2024 7:25 AM EST 09/21/2024 7:41 AM EST Alexi Javier MD LAB BLOOD ORDERABLES Final Result [facility] [address] [place] [address], * B-type natriuretic peptide (09/21/2024 7:25 AM EST) BNP 6 <=100 pcg/mL LAB CHEMISTRY METHOD 09/21/2024 8:16 AM EST [facility] Blood Venous blood specimen / Unknown Venipuncture / Unknown 09/21/2024 7:25 AM EST 09/21/2024 7:41 AM EST Alexi Javier MD LAB BLOOD ORDERABLES Final Result [facility] [address] [place] [address], [place] [phone] * Magnesium (09/21/2024 7:25 AM EST) [facility] Magnesium 2.3 1.9 - 2.6 mg/dL LAB CHEMISTRY METHOD 09/21/2024 8:14 AM EST [facility] Blood Venous blood specimen / Unknown Venipuncture / Unknown 09/21/2024 7:25 AM EST 09/21/2024 7:41 AM EST Alexi Javier MD LAB BLOOD ORDERABLES Final Result Performing Organization Address [facility]/ZIP Co de Phone Number [facility] [address] [place] [address], [place] [phone] * Lipase (09/21/2024 7:25 AM EST) [facility] Lipase 32 13 - 75 unit/L LAB CHEMISTRY METHOD 09/21/2024 8:14 AM EST [facility] Blood Venous blood specimen / Unknown Venipuncture / Unknown 09/21/2024 7:25 AM EST 09/21/2024 7:41 AM EST Alexi Javier MD LAB BLOOD ORDERABLES Final Result Performing Organization Address [facility]/ZIP Co de Phone Number [facility] [address] [place] [address], [place] [phone] * (ABNORMAL) Comprehensive metabolic panel (09/21/2024 7:25 AM EST) [facility] Sodium 136 133 - 145 mmol/L LAB CHEMISTRY METHOD 09/21/2024 8:14 AM EST [facility] Potassium 3.0(L) 3.5 - 5.5 mmol/L LAB CHEMISTRY METHOD 09/21/2024 8:14 AM EST [facility] Chloride 101 96 - 110 mmol/L LAB CHEMISTRY METHOD 09/21/2024 8:14 AM [facility] CO2 30 21 - 32 mmol/L LAB CHEMISTRY METHOD 09/21/2024 8:14 AM [facility] Anion Gap 5 3 - 11 LAB CHEMISTRY METHOD 09/21/2024 8:14 AM [facility] Glucose 200(H) 70 - 100 mg/dL LAB CHEMISTRY METHOD 09/21/2024 8:14 AM [facility] BUN 19 5 - 25 mg/dL LAB CHEMISTRY METHOD 09/21/2024 8:14 AM [facility] Creatinine 0.96 0.70 - 1.30 mg/dL LAB CHEMISTRY METHOD 09/21/2024 8:14 AM [facility] eGFR 90 >=60 mL/min/1. 73m2 LAB CHEMISTRY METHOD 09/21/2024 8:14 AM [facility] Comment:Calculation based on the??Chronic Kidney Disease Epidemiology Collaboration (CKD-EPI) equation refit??without adjustment for race. BUN/Creatinine Ratio 19.8 LAB CHEMISTRY METHOD 09/21/2024 8:14 AM [facility] Calcium 8.7 8.5 - 10.5 mg/dL LAB CHEMISTRY METHOD 09/21/2024 8:14 AM [facility] AST (SGOT) 28 10 - 42 unit/L LAB CHEMISTRY METHOD 09/21/2024 8:14 AM [facility] ALT (SGPT) 37 10 - 60 unit/L LAB CHEMISTRY METHOD 09/21/2024 8:14 AM [facility] Alkaline Phosphatase 91 42 - 121 unit/L LAB CHEMISTRY METHOD 09/21/2024 8:14 AM [facility] Total Protein 6.8 6.0 - 8.0 g/dL LAB CHEMISTRY METHOD 09/21/2024 8:14 AM [facility] Albumin 3.6 3.2 - 5.0 g/dL LAB CHEMISTRY METHOD 09/21/2024 8:14 AM EST [facility] Total Bilirubin 0.6 0.0 - 1.4 mg/dL LAB CHEMISTRY METHOD 09/21/2024 8:14 AM EST [facility] Blood Venous blood specimen / Unknown Venipuncture / Unknown 09/21/2024 7:25 AM EST 09/21/2024 7:41 AM EST us Alexi Javier MD LAB BLOOD ORDERABLES Final Result [facility] [address] [place] [address], * ECG-Annotated (09/21/2024) Only the most recent of4 resultswithin the time period is included. us Provider Onbase MD ECG ORDERABLES Final Result from Last 3 Months Additional Health Concerns Infection Onset Date Last Indicated Coronavirus 09/21/2024 09/21/2024 Insurance [facility] [employer] Care Teams Toolroom Attendant Relationship Specialty Start Date End Date Albert Joyce MD [address] [place] [address] Dr Gamaliel Rahman [place] PCP - General Internal Medicine 11/28/18
--- OUTSIDE RECORDS SUMMARY | 2024-12-13 16:02 | XMS_ITS | Clinical Summary ---
Author Organization [facility] Address [address] [place] [address] Care Team Providers Care Program Director/Music Director Name Role Phone Unavailable Primary Care Provider [...] Plan of Treatment Not on file Insurance [place] D[place] [facility] NET DENTAL [place]
== END 2024-12-13 16:36 | disposition home or self-care (01) ==
LOC: HO.HMCH 13:48
PROVIDERS: PCP Internal Medicine; Visit Provider Physician Assistant Medical
DX: M54.50 Low back pain, unspecified (principal); E11.9 Type 2 diabetes mellitus without complications

== ENCOUNTER → 2024-12-13 13:47 | Outpatient (BNVA) | payer OTHER, SELFPAY | PROVIDERS: PCP Internal Medicine; Visit Provider Physician Assistant Medical | DX: M54.50 Low back pain, unspecified (principal); E11.9 Type 2 diabetes mellitus without complications | CPT/HCPCS: 96127; 99212 ==

== ENCOUNTER 2024-12-29 18:42 | Outpatient (REF) | payer OTHER, SELFPAY ==
--- NOTE | ~2024-12-29 | MR_ITS ---
EXAMINATION: MR LUMBAR SPINE WITHOUT CONTRAST CLINICAL INFORMATION: Dorsalgia, unspecified. COMPARISON: None available. TECHNIQUE: MRI of the lumbar spine was obtained using routine sequences without contrast. FINDINGS: Sacralized vertebra labeled S1. Rudimentary ribs, L1. Marginal osteophyte formation and decreased intervertebral disc height and signal at L5-S1 and to a lesser extent L4-5 and L3-4. Focal hyperintense T2 STIR signal in the posterior intervertebral discs L4-5, L3-4 and likely L5-S1 related to annular fissure. Modic type I endplate changes at L5-S1 and anterior superior endplate of L4. Bone marrow inhomogeneity throughout the included axial skeleton and bony pelvis and sagittal hyperintense STIR signal on the right hemisacrum. Grade 1 anterolisthesis, L3-4 on a degenerative basis. Conus medullaris ends at superior endplate of L2 with normal signal. T12-L1: Facet joint hypertrophy as well as ligamentum flavum.. No central spinal canal stenosis. No neuroforamina stenosis. L1-2: Facet joint and ligamentum flavum hypertrophy. No disc herniation. No central spinal canal or neuroforamina stenosis. L2-3: Facet joint and ligamentum flavum hypertrophy. No disc herniation. No neuroforamina stenosis. L3-4: Broad-based disc bulging. Facet joint and ligamentum flavum hypertrophy. Central spinal canal stenosis with CSF effacement of the thecal sac. Bilateral neuroforamina stenosis. There is encroachment of the neural elements of the thecal sac and likely the exiting nerve roots left greater than the right side. L4-5: Central, right subarticular and foraminal disc herniation compressing the neural elements of the thecal sac the right L5 nerve root on its lateral recess. Facet joint and ligamentum flavum hypertrophy resulting in bilateral neuroforamina narrowing. L5-S1: Broad-based disc bulging. Facet joint hypertrophy. Bilateral neuroforamina stenosis, right greater than the left side , encroaching posterior compressing the exiting nerve roots, right S1 and right L5 No prevertebral compartment hematoma, mass or fluid collection. Small hyperintense T2 cystic lesion in the left kidney.. MR/MR lumbar spine wo con IMPRESSION: Right central subarticular and foraminal broad-based disc herniation at L4-5 compressing the right L5 and right L4 exiting nerve roots as well as the neural elements of the thecal sac. Multilevel spondylosis, L3-4 to L5-S1 resulting in bilateral neuroforamina stenosis, right greater than the left side and central spinal canal stenosis. Focal bone marrow signal abnormality at the right hemisacrum and bone marrow inhomogeneity suggesting calcium metabolic disorder. Underlying lymphoproliferative disorder/malignancy cannot be excluded. Electronically signed by: Deep Nathan MD 12/31/2024 08:12 AM EDT
== END 2024-12-29 18:43 | disposition home or self-care (01) ==
LOC: HO.MRI 18:42
PROVIDERS: Visit Provider Physician Assistant Medical
DX: M54.9 Dorsalgia, unspecified (principal)
CPT/HCPCS: 72148

== ENCOUNTER → 2024-12-29 18:46 | Outpatient (BNV) | payer OTHER, SELFPAY | PROVIDERS: Visit Provider Radiology Diagnostic Radiology | DX: M51.26 Other intervertebral disc displacement, lumbar region (principal); M47.816 Spondylosis without myelopathy or radiculopathy, lumbar region; M99.63 Osseous and subluxation stenosis of intervertebral foramina of lumbar region | CPT/HCPCS: 72148 ==

== ENCOUNTER 2025-01-10 13:29 | Outpatient (REF) | payer OTHER, SELFPAY ==
[2025-01-10 15:33] LABS: Appearance Urine Clear; Color Urine Yellow; Glucose Urine UA >=1000 mg/dL (Negative); Leukocyte Esterase Urine Negative (Negative); Nitrite Urine Negative (Negative); PH 5.5 (5.0-9.0); Specific Gravity - Urine >= 1.030 (1.005-1.025); UMIC TRIGGER UA YES; Urine Blood Negative (Negative); Urine Ketones Negative (Negative); Urine Protein Negative (Neg-Trace)
[2025-01-10 15:37] LABS: C Reactive Protein 0.16 mg/dL (< or = 0.50); Cholesterol 147 mg/dL (<200); HDL Cholesterol 47 mg/dL (>40); LDL Cholesterol Calculated 71 mg/dL (<100); Triglycerides 146 mg/dL (<150)
[2025-01-10 15:43] LABS: Estimated Average Glucose 160 mg/dL; Hemoglobin A1c % 7.2 % (<6.0)
[2025-01-10 15:57] LABS: Erythrocyte Sedimentation Rate 4 MM/HR (0-15)
[2025-01-10 16:03] LABS: Bacteria Urine None Seen (None Seen); Hyaline Casts Urine 0-2 /LPF (0-2); RBC Urine 0-2 /HPF (0-2); Squamous Epithelial Cell Urine 0-2 /HPF (0-2); WBC Urine 0-5 /HPF (0-5)
== END 2025-01-10 13:30 | disposition home or self-care (01) ==
LOC: HO.LAB 13:29
PROVIDERS: Absent Provider Internal Medicine; PCP Internal Medicine; Visit Provider Physician Assistant
DX: M54.50 Low back pain, unspecified (principal); E11.9 Type 2 diabetes mellitus without complications
CPT/HCPCS: 36415; 80061; 81001; 83036; 85652; 86140; 99212

== ENCOUNTER 2025-01-10 13:52 | Outpatient (AMB) | payer OTHER, SELFPAY ==
--- NOTE | 2025-01-10 13:54 | A.OFFPC_ITS ---
Vital Signs 01/10/25 13:55 Height 5 ft 6 in Weight 159 lb 8 oz BMI 25.7 BP 120/66 Blood Pressure Location Lt brachial Position Sitting Pulse 78 Pulse Source Pulse Oximeter Temp 97.5 F Temp Source Temporal Artery Scan Pulse Oximetry (%) 98 Oxygen Delivery Method Room Air Intake Visit Reasons: follow up Intake Note: Patient is here to follow up on Back pain. Closing Manager Required: No Bill Board Poster: Not Required per policy Accompanied by: Self / Same As Patient Allergies No Known Allergies Allergy (Verified 01/10/25 13:55) Tobacco use date assessed: 01/10/25 Dental Screening Dental Screen Date: 11/08/24 [facility] Medical History Flank pain Back pain Lumbar back pain Annual physical exam GERD (gastroesophageal reflux disease) Borderline hypercholesterolemia Essential (primary) hypertension Coronary artery disease Diabetes mellitus Surgical History H/O colonoscopy (~08/19/22) H/O hernia repair History of heart artery stent Family History Mother No problems noted. Father No problems noted. Social History Housing: House Alcohol intake: never Patient Tobacco Use Status: Never used Tobacco e-Cigarette/Vaping Use: Never Used Second Hand Smoke Exposure: No service: No Current occupational status: employed Current occupational exposures/hazards: No Cognitive needs: No Hearing needs: No Vision needs: No Questionnaire Thrive Questionnaire Date Thrive assessed: 12/13/24 JEANETTE-7 AMB Questionnaire JEANETTE-7 Date JEANETTE - 7 assessed: 11/08/24 Source: Developed by Drs. Ck Orantes, Darby Henderson, Maco Ken and colleagues, with an educational brock from [employer]. Physical exam (Primary Care) Vital Signs: Last Vital Signs Temp 97.5 F 01/10/25 13:55 Pulse 78 01/10/25 13:55 BP 120/66 01/10/25 13:55 Pulse Ox 98 01/10/25 13:55 Oxygen Delivery Method Room Air 01/10/25 13:55 BMI result Body Mass Index 25.7 Tobacco/Smoking Status: Tobacco use Status Tobacco use date assessed 01/10/25 01/10/25 13:59 Patient Tobacco Use Status Never used Tobacco 01/10/25 13:59 e-Cigarette/Vaping Use Never Used 01/10/25 13:59 Thrive Assessment: Date of Thrive Assessment Date Thrive assessed 12/13/24 01/10/25 13:59 Coding Level of Care Code Est Pt Level 4 (40141) Complex EM visit Add On G2211 Diagnoses Low Back Pain M54.50 Assessment & Plan Assessment & Plan (1) Low Back Pain: Code(s): M54.50 - Low back pain, unspecified Plan: MRI results discussed in detail. Pt does not have much back pain right now. Should the pain flare up frequently an appt with Dr Cardenas will be suggested. PT ordered. ESR ordered to check inflammatory markers Plan History of Present Illness - The patient is a 64-year-old male presenting with concerns about right leg swelling and spinal narrowing. - Reports persistent swelling in the right leg; denies associated pain. - Spinal narrowing noted in MRI, causing previous difficulty in standing, now under control. - No specific triggering events for low back pain - Social History Review of Systems - Musculoskeletal: Reports swelling in the right leg; denies associated pain. - Neurological: Reports previous difficulty in standing due to spinal narrowing; reports fatigue. Physical Exam General: Cooperative and healthy appearing Nutritional Appearance: Well nourished Orientation/consciousness: Patient oriented x3 Limitations: No limitations Head: Normal to inspection General: Appearance normal, both eyes and all related structures Neck: Normal visual inspection Chest: Normal palpation of entire chest wall Respiratory: N ormal respiratory effort Neurology: Patient oriented x3, experiencing pain due to narrowing, prescribed Neurontin (Gabapentin) to be taken three times a day. Results Plan 1. Swelling Of The Right Leg - Prescribed Neurontin three times daily. - Monitor and report changes in swelling. 2. Spinal Narrowing - Condition currently under control. - Consideration of surgery if pain worsens. - Follow-up in one month. - Blood test ordered for further evaluation. Discussion Notes During the visit, I addressed the patient's concerns regarding right leg swelling and spinal narrowing. I explained that the current swelling in the right leg does not necessitate immediate surgical intervention, given the absence of pain. Neurontin was prescribed to manage the symptoms. For the spinal narrowing, I reassured the patient that surgery would only be considered if the pain becomes severe or unmanageable. A follow-up appointment was scheduled in one month to evaluate the progress of both conditions. I also discussed the importance of completing a blood test to investigate any underlying causes of fatigue. The patient was informed about the potential risks and benefits of surgery and was advised to report any significant changes in symptoms promptly. Patient Instructions - Take Neurontin three times a day as prescribed. - Monitor the right leg swelling and report any changes. - Complete the blood test as instructed. - Return for a follow-up appointment in one month. - Report any new or worsening symptoms immediately. Orders: Orders Erythrocyte Sedimentation Rate Today M54.50 - Low back pain, unspecified C Reactive Protein Today M54.50 - Low back pain, unspecified Hemoglobin A1c Today M54.50 - Low back pain, unspecified Medications: New gabapentin (Neurontin) 100 mg PO TID 90 caps 0RF
[2025-01-10 13:55] VITALS: BP 120/66; PULSE 78; TEMP 36.4; O2SAT 98; BMI 25.7
== END 2025-01-10 14:38 | disposition home or self-care (01) ==
LOC: HO.HMCH 13:52
PROVIDERS: PCP Internal Medicine; Visit Provider Internal Medicine
DX: M54.50 Low back pain, unspecified (principal)

== ENCOUNTER → 2025-01-25 07:54 | Outpatient (REF) | payer OTHER, SELFPAY ==
--- NOTE | ~2025-01-25 | NM_ITS ---
EXERCISE MYOCARDIAL PERFUSION STUDY INDICATION: Apical chest pain to evaluate for myocardial ischemia TECHNIQUE: The patient was brought in for an exercise perfusion study on 01/25/2025. Patient performed exercise as per Thai protocol and was injected 25 mCi of sestamibi once target heart rate was achieved. Images were obtained using the SPECT gamma camera interlaced with the gating device. Images were obtained in supine position. Resting perfusion study was performed on 01/28/2025. Patient was administered 25 mCi of sestamibi intravenously at rest. Images were then obtained in supine position. Images obtained without without CT attenuation. Total DLP 74 mGy-cm Images were processed with the software and compared side to side in short axis, horizontal long axis and vertical long axis views. FINDINGS: Raw images were reviewed The stress perfusion study showed nonattenuated images show mildly reduced uptake in the basal inferoseptal, basal and mid inferior wall as well as basal inferolateral wall of the LV myocardium. Remainder of the LV myocardium is normally perfused. Attenuated corrected images show normal uptake of radiotracer in all segments of the myocardium.. The gated study shows normal LV systolic function with calculated LVEF of 75%. LV cavity is normal in size. The gated study shows normal systolic wall thickening and contraction of segments. Resting study shows nonattenuated images show improved uptake in the inferoseptal basal and mid inferior and basal inferolateral myocardium. Attenuated corrected images show normal uptake ordered images in all segments. Gating at rest reveals systolic wall motion with ejection fraction at 76%. The findings are consistent with mild intensity reversible defect basal and inferoseptal, basal inferolateral as well as the mid and basal inferior wall, only appreciated on nonattenuated images. Equivocal for ischemia NM/NM reanna perf SPECT rest & str IMPRESSION: 1. Myocardial perfusion imaging study shows equivocal for basal inferoseptal, basal inferolateral and mid and basal inferior wall ischemia. 2. Gated LVEF is 75%. 3. Transient ischemic dilatation not present. EKG revealed positive for ischemia. Electronically signed by: Martín Shi MD 01/28/2025 03:59 PM EDT
--- NOTE | 2025-01-25 07:56 | CA_ITS ---
Acquisition Time: 2025-01-25 08:13:19 Total Exercise Time: 00:07:00 Test Indications: CP Medications: SEE H&P Protocol: NATASHA Max HR: 139 BPM 87% of Pred: 158 BPM Max BP: 200/104 mmHG Max Work Load: 8.5 METS Exercise stress test with exercise 7 mins of Natasha Protocol, achieving 87% MPHR, with reports of 2/10 mid chest pressure, without any arrythmias, with hypertensive response to exercise- max BP 200/104. With horizontal ST depression inferiorly and anterolaterally meeting criteria for ischemia. In recovery, chest pressure quickly resolved. BP improved. Nuclear images pending. Will arrange for cardiac cath. Test reviewed with Dr. Shi. Referred By: Martín Shi Electronically Signed By: Sukh Grant
--- OUTSIDE RECORDS SUMMARY | 2025-01-25 07:56 | XMS_ITS | Clinical Summary ---
Author Organization [facility] Address [address] [place] [address] Phone Care Team Providers Care Hyperion Analyst Name Role Phone Albert Joyce MD Primary Care Provider [phone] Allergies No known active allergies Medications nitroglycerin (NITROSTAT) 0.[address] 1 tablet (0.4 mg total) under the tongue every 5 (five) minutes if needed for chest pain. 90 tablet 09/21/2024 Active Medical History Medical History Date Comments Hypertension [...] Procedure Name Priority Date/Time Associated Diagnosis Comments COMPREHENSIVE METABOLIC PANEL STAT 09/21/2024 7:25 AM EST from Last 3 Months or Most Recently Relevant to Health Maintenance Results * (ABNORMAL) Comprehensive metabolic panel (09/21/2024 7:25 AM EST) Sodium 136 133 - 145 mmol/L LAB CHEMISTRY METHOD 09/21/2024 8:14 AM [facility] Potassium 3.0(L) 3.5 - 5.5 mmol/L LAB CHEMISTRY METHOD 09/21/2024 8:14 AM [facility] Chloride 101 96 - 110 mmol/L LAB CHEMISTRY METHOD 09/21/2024 8:14 AM [facility] CO2 30 21 - 32 mmol/L LAB CHEMISTRY METHOD 09/21/2024 8:14 AM [facility] Anion Gap 5 3 - 11 LAB CHEMISTRY METHOD 09/21/2024 8:14 AM [facility] Glucose 200(H) 70 - 100 mg/dL LAB CHEMISTRY METHOD 09/21/2024 8:14 AM [facility] BUN 19 5 - 25 mg/dL LAB CHEMISTRY METHOD 09/21/2024 8:14 AM [facility] Creatinine 0.96 0.70 - 1.30 mg/dL LAB CHEMISTRY METHOD 09/21/2024 8:14 AM [facility] eGFR 90 >=60 mL/min/1. 73m2 LAB CHEMISTRY METHOD 09/21/2024 8:14 AM [facility] Comment:Calculation based on the??Chronic Kidney Disease Epidemiology Collaboration (CKD-EPI) equation refit??without adjustment for race. BUN/Creatinine Ratio 19.8 LAB CHEMISTRY METHOD 09/21/2024 8:14 AM [facility] Calcium 8.7 8.5 - 10.5 mg/dL LAB CHEMISTRY METHOD 09/21/2024 8:14 AM [facility] AST (SGOT) 28 10 - 42 unit/L LAB CHEMISTRY METHOD 09/21/2024 8:14 AM [facility] ALT (SGPT) 37 10 - 60 unit/L LAB CHEMISTRY METHOD 09/21/2024 8:14 AM [facility] Alkaline Phosphatase 91 42 - 121 unit/L LAB CHEMISTRY METHOD 09/21/2024 8:14 AM [facility] Total Protein 6.8 6.0 - 8.0 g/dL LAB CHEMISTRY METHOD 09/21/2024 8:14 AM [facility] Albumin 3.6 3.2 - 5.0 g/dL LAB CHEMISTRY METHOD 09/21/2024 8:14 AM [facility] Total Bilirubin 0.6 0.0 - 1.4 mg/dL LAB CHEMISTRY METHOD 09/21/2024 8:14 AM [facility] Blood Venous blood specimen / Unknown Venipuncture / Unknown 09/21/2024 7:25 AM EST 09/21/2024 7:41 AM EST us Alexi Javier MD LAB BLOOD ORDERABLES Final Result [facility] [address] [place] [address], from Last 3 Months or Most Recently Relevant to Health Maintenance Additional Health Concerns Infection Onset Date Last Indicated Coronavirus 09/21/2024 09/21/2024 Insurance [facility] Care Teams Hyperion Analyst Relationship Specialty Start Date End Date Albert Joyce MD [address] [place] [address] [address] [place], [place] PCP - General Internal Medicine 11/28/18
== END ==
LOC: HO.CARD 07:54
PROVIDERS: Visit Provider Internal Medicine Cardiovascular Disease
DX: R07.89 Other chest pain (principal); I25.10 Atherosclerotic heart disease of native coronary artery without angina pectoris; I25.84 Coronary atherosclerosis due to calcified coronary lesion
CPT/HCPCS: 78452; 93017; A9500; J0280; J2785

== ENCOUNTER → 2025-01-25 07:56 | Outpatient (BNV) | payer OTHER, SELFPAY | DX: R07.9 Chest pain, unspecified (principal); R03.0 Elevated blood-pressure reading, without diagnosis of hypertension | CPT/HCPCS: 78452; 93016; 93018 ==

== ENCOUNTER 2025-02-07 13:06 | Outpatient (REF) | payer OTHER, SELFPAY ==
[2025-02-07 14:22] LABS: Hematocrit 46.9 % (42.0-52.0); Hemoglobin 15.8 g/dl (14.0-18.0); Mean Corpuscular HGB Conc 33.7 g/dl (31.0-36.0); Mean Corpuscular Hemoglobin 28.6 pg (27.0-33.0); Mean Corpuscular Volume 84.8 fL (80.0-98.0); Mean Platelet Volume 10.7 fL (9.4-12.4); Platelet Count 281 X10*3/uL (160-400); Red Blood Count 5.53 X10*6/uL (4.60-5.80); Red Cell Distribution Width 12.7 % (11.0-16.0); White Blood Count 10.4 X10*3/uL (4.8-10.8)
[2025-02-07 14:25] LABS: Prothrombin Time 11.2 SEC (10.9-12.4)
[2025-02-07 14:53] LABS: Anion Gap 11 (12-20); Blood Urea Nitrogen 13 mg/dL (9-16); Carbon Dioxide 27 mmol/L (22-29); Chloride 103 mmol/L (96-108); Estimated Glomerular Filt Rate > 60; Glucose Random 215 mg/dL (60-115); Sodium 137 mmol/L (135-145)
--- OUTSIDE RECORDS SUMMARY | 2025-02-07 15:43 | XMS_ITS | Clinical Summary ---
Author Organization [facility] Address [address] [place] [address] Phone Care Team Providers Care Freezer Tunnel Operator Name Role Phone Albert Joyce MD Primary Care Provider [phone] Allergies No known active allergies Medications nitroglycerin [...] 71 09/21/2024 11:15 AM EST Temperature 37.1 C (98.8 F) 09/21/2024 7:18 AM EST Respiratory Rate 16 09/21/2024 11:15 AM EST [...] mmol/L LAB CHEMISTRY METHOD 09/21/2024 8:14 AM [facility] Potassium 3.0(L) 3.5 - 5.5 mmol/L LAB CHEMISTRY METHOD 09/21/2024 8:14 AM [facility] Chloride 101 96 - 110 mmol/L LAB CHEMISTRY METHOD 09/21/2024 8:14 AM [facility] CO2 30 21 - 32 mmol/L LAB CHEMISTRY METHOD 09/21/2024 8:14 AM [facility] Anion Gap 5 3 - 11 LAB CHEMISTRY METHOD 09/21/2024 8:14 AM [facility] Glucose 200(H) 70 - 100 mg/dL LAB CHEMISTRY METHOD 09/21/2024 8:14 AM [facility] BUN 19 5 - 25 mg/dL LAB CHEMISTRY METHOD 09/21/2024 8:14 AM [facility] Creatinine 0.96 0.70 - 1.30 mg/dL LAB CHEMISTRY METHOD 09/21/2024 8:14 AM [facility] eGFR 90 >=60 mL/min/1. 73m2 LAB CHEMISTRY METHOD 09/21/2024 8:14 AM [facility] Comment:Calculation based on the Chronic Kidney Disease Epidemiology Collaboration (CKD-EPI) equation refit without adjustment for race. BUN/Creatinine Ratio 19.8 LAB CHEMISTRY METHOD 09/21/2024 8:14 AM [facility] Calcium 8.7 8.5 - 10.5 mg/dL LAB CHEMISTRY METHOD 09/21/2024 8:14 AM [facility] AST (SGOT) 28 10 - 42 unit/L LAB CHEMISTRY METHOD 09/21/2024 8:14 AM [facility] ALT (SGPT) 37 10 - 60 unit/L LAB CHEMISTRY METHOD 09/21/2024 8:14 AM [facility] Alkaline Phosphatase 91 42 - 121 unit/L LAB CHEMISTRY METHOD 09/21/2024 8:14 AM [facility] Total Protein 6.8 6.0 - 8.0 g/dL LAB CHEMISTRY METHOD 09/21/2024 8:14 AM [facility] Albumin 3.6 3.2 - 5.0 g/dL LAB CHEMISTRY METHOD 09/21/2024 8:14 AM [facility] Total Bilirubin 0.6 0.0 - 1.4 mg/dL LAB CHEMISTRY METHOD 09/21/2024 8:14 AM [facility] Blood Venous blood specimen / Unknown Venipuncture / Unknown 09/21/2024 7:25 AM EST 09/21/2024 7:41 AM EST us Alexi Javier MD LAB BLOOD ORDERABLES Final Result [facility] [address] [place] [address], from Last 3 Months or Most Recently Relevant to Health Maintenance Additional Health Concerns Infection Onset Date Last Indicated Coronavirus 09/21/2024 09/21/2024 Insurance [facility] [employer] Care Teams Freezer Tunnel Operator Relationship Specialty Start Date End Date Albert Joyce MD [address] [place] [address] [address] [place] PCP - General Internal Medicine 11/28/18
== END 2025-02-07 13:07 | disposition home or self-care (01) ==
LOC: HO.LAB 13:06
PROVIDERS: Visit Provider Internal Medicine
DX: R94.39 Abnormal result of other cardiovascular function study (principal); R07.9 Chest pain, unspecified; E11.9 Type 2 diabetes mellitus without complications; F33.2 Major depressive disorder, recurrent severe without psychotic features
CPT/HCPCS: 36415; 80048; 85027; 85610

== ENCOUNTER → 2025-02-14 23:59 | Outpatient (BNV) | payer OTHER, SELFPAY | PROVIDERS: PCP Internal Medicine; Visit Provider Internal Medicine Cardiovascular Disease | DX: R07.9 Chest pain, unspecified (principal); R93.1 Abnormal findings on diagnostic imaging of heart and coronary circulation | CPT/HCPCS: 93458; 93571; 99152 ==

== ENCOUNTER 2025-02-28 14:43 | Outpatient (AMB) | payer OTHER, SELFPAY ==
--- NOTE | 2025-02-28 15:02 | A.OFFVIS_ITS ---
Vital Signs 02/28/25 15:05 Height 5 ft 6 in Weight 163 lb 2.273 oz BMI 26.3 BP 140/80 H Blood Pressure Location Lt brachial Position Sitting Pulse 83 Pulse Source Pulse Oximeter Intake Visit Reasons: Follow up post cardiac cath Intake Note: f/up-s/p cath Tooth Clerk Required: Yes Tooth Clerk Language: Prateek Tooth Clerk Name: [email or web address] Accompanied by: Self / Same As Patient Allergies No Known Allergies Allergy (Verified 01/10/25 13:55) Medication List - Last Reconciled 02/28/25 by Sukh Grant NP amlodipine 5 mg PO DAILY aspirin 81 mg PO DAILY atorvastatin 80 mg PO DAILY blood sugar diagnostic (FreeStyle Lite Strips) As directed blood-glucose meter (FreeStyle Hyder kit) To be tested one time daily [diabetic shoes As directed] dulaglutide (Trulicity) 0.75 mg (0.5 mL) subcut QWEEK duloxetine 30 mg PO DAILY empagliflozin (Jardiance) 25 mg PO DAILY gabapentin (Neurontin) 100 mg PO TID glipizide 5 mg PO DAILY hydrochlorothiazide 25 mg PO DAILY ketoconazole 2% 1 appl topical DAILY lancets (FreeStyle Lancets) As directed One time daily lidocaine 5% (Lidoderm) 1 patch topical DAILY metformin 500 mg PO BID metoprolol succinate ER 25 mg PO DAILY multivitamin (Daily-Jesse tablet) 1 tab PO DAILY pantoprazole 40 mg PO DAILY tadalafil (Cialis) 5 mg PO DAILY tramadol 50 mg PO BID PRN 2 weeks valsartan 320 mg PO DAILY HPI Comments Details: This is a 64-year-old male patient coming in for a follow-up visit status post cardiac catheterization. Patient with a history of hypertension, hyperlipidemia, coronary artery disease with prior LAD and RCA PCI in 2019, and diabetes was previously seen in the office for chest discomfort. Subsequently patient underwent a myocardial perfusion study which was abnormal. Patient is now status post cardiac catheterization with Dr. Stroud at [facility]. Today, patient is reporting some right lower leg discomfort since cardiac catheterization, otherwise reports feeling well overall and denies any cardiac symptoms of exertional chest pain, shortness of breath, palpitations, dizziness, orthopnea, PND, leg edema, presyncope, or syncope. Patient is reporting compliance with all his medications. [facility] Medical History (Updated 01/25/25 @ 13:01 by Sukh Grant NP) Flank pain Back pain Lumbar back pain Annual physical exam GERD (gastroesophageal reflux disease) Borderline hypercholesterolemia Essential (primary) hypertension Coronary artery disease Diabetes mellitus Surgical History (Updated 02/28/25 @ 15:06 by Cate Castro [facility]) S/P cardiac cath H/O colonoscopy (~08/19/22) H/O hernia repair History of heart artery stent Family History Mother No problems noted. Father No problems noted. Social History Housing: House Alcohol intake: never Patient Tobacco Use Status: Never used Tobacco e-Cigarette/Vaping Use: Never Used Second Hand Smoke Exposure: No service: No Current occupational status: employed Current occupational exposures/hazards: No Cognitive needs: No Hearing needs: No Vision needs: No Review of Systems Const Denies chills, Denies fatigue, Denies fever(s), Denies frequent falls, Denies weakness, Denies weight gain and Denies weight loss ENT Denies dizziness Card Denies chest pain, Denies leg edema, Denies lightheadedness, Denies palpitations, Denies dyspnea and Denies dyspnea on exertion Resp Denies cough, Denies dyspnea and Denies dyspnea on exertion GI Denies hematochezia Musc Denies abnormal gait, Denies muscle weakness, Denies numbness, Denies radiating pain into limb and Denies tingling Neuro Denies abnormal gait, Denies dizziness, Denies frequent falls, Denies numbness, Denies tingling and Denies weakness Endo Denies fatigue and Denies palpitations Physical Exam Vital Signs: Last Vital Signs Pulse 83 02/28/25 15:05 BP 140/80 H 02/28/25 15:05 BMI result Body Mass Index 26.3 Const General: cooperative, healthy appearing, comfortable and no acute distress Orientation/consciousness: patient oriented x3 HEENT Head: Yes normal to inspection Neck Neck: Yes normal visual inspection, Yes trachea midline and Yes supple Chest Chest palpation & inspection: normal inspection of the chest Resp Effort & Inspection: normal respiratory effort Auscultation: clear to auscultation bilaterally, no crackles, no rales, no rhonchi and no wheezes Cardio Jugular venous distension: no JVD Palpation: normal PMI Rate: regular rate Rhythm: regular rhythm Heart sounds: S1 normal heart sound present, S2 normal heart sound present, no click, no gallops, no murmurs and no rubs Peripheral pulses: Peripheral pulses 2+ throughout GI Inspection: Yes normal to inspection Palpation (GI): Soft to palpation Auscultation: normal bowel sounds Skin General skin exam: no rashes or lesions noted Neuro General: patient oriented x3 Extrem General: Yes normal to inspection, No no pedal edema and No calf tenderness Psych Appearance: grossly normal Mental Status: mental status grossly normal Speech and movement: Normal speech and movement present Assessment & Plan Assessment & Plan (1) Coronary artery disease: Code(s): I25.10 - Atherosclerotic heart disease of [place] coronary artery without angina pectoris Category: Medical Qualifiers: Coronary Disease-Associated Artery/Lesion type: due to calcified coronary lesion Qualified Code(s): I25.10 - Atherosclerotic heart disease of [place] coronary artery without angina pectoris; I25.84 - Coronary atherosclerosis due to calcified coronary lesion Plan: History of coronary artery disease with prior LAD and RCA PCI in 2019. Due to recent reports of chest discomfort, patient underwent myocardial perfusion study. 01/25/2025-myocardial perfusion study showed echo workup for basal inferoseptal, basal inferolateral, mid and basal inferior wall ischemia. 02/14/2025-patient subsequently underwent cardiac catheterization with Dr. Stroud at [facility] that showed mild disease in the proximal RCA with a patent distal RCA stent, mild luminal irregularities in the LAD, with patent proximal LAD stent, and left circumflex OM with 70% stenosis. It was decided to medically treat his OM stenosis and plan is to bring him back for left circumflex PCI in case of exertional symptoms developing. Clinically stable and without any anginal symptoms. Continue lifelong aspirin therapy. Continue amlodipine, hydrochlorothiazide, metoprolol, valsartan, and high-dose statin therapy. Most recent LDL at 71. We will add Zetia to his regimen with an LDL goal less than 70. Patient's right wrist catheterization site is well healed. Given his reported symptom of right lower leg pain near his calf since his cardiac catheterization, we will get a duplex ultrasound to rule out DVT. (2) Status post cardiac catheterization: Code(s): Z98.890 - Other specified postprocedural states Plan: As above. (3) Essential (primary) hypertension: Code(s): I10 - Essential (primary) hypertension Category: Medical Plan: Blood pressure today is well-controlled. Continue current regimen. Advised monitoring blood pressures at home with a goal less than 130/80. (4) Borderline hypercholesterolemia: Code(s): E78.00 - Pure hypercholesterolemia, unspecified Category: Medical Plan: As above. (5) Diabetes mellitus: Code(s): E11.9 - Type 2 diabetes mellitus without complications Category: Medical Qualifiers: Diabetes mellitus complication status: without complication Diabetes mellitus mcfp insulin use: without truck terminal manager use Diabetes mellitus type: type 2 Qualified Code(s): E11.9 - Type 2 diabetes mellitus without complications Plan: Most recent A1c at 7.2%. Continue aggressive diabetes management with an A1c goal less than 7%. Advised heart healthy diet, regular exercise, med compliance, aggressive management vascular risk factors. Follow up in 4 months. In the interim, patient will call the office with any concerns or change in symptoms. Advised patient to seek ER care in case of exertional chest pain not resolved with rest. This note was generated using voice recognition software. While every effort has been made to ensure accuracy and proper pathology transcriptionist, there may be occasional errors that could affect the content or meaning of the described symptoms. Orders: Orders US venous duplex LE RT Today I82.409 - Acute embolism and thrombosis of unspecified deep veins of unspecified lower extremity Medications: New ezetimibe 10 mg PO DAILY 90 tabs 3RF Coding Level of Care Code Est Pt Level 4 (56121) Complex EM visit Add On G2211 Diagnoses Coronary artery disease due to calcified coronary lesion I25.10; I25.84 Coronary Disease-Associated Artery/Lesion type: due to calcified coronary lesion Status post cardiac catheterization Z98.890 Essential (primary) hypertension I10 Borderline hypercholesterolemia E78.00 Type 2 diabetes mellitus without complication, without long-term current use of insulin E11.9 Diabetes mellitus complication status: without complication Diabetes mellitus truck terminal manager insulin use: without mcfp use Diabetes mellitus type: type 2 Time Spent (min) 32 Comment Time spent in reviewing the chart, test results, assessment, counseling and documentation.
[2025-02-28 15:05] VITALS: BP 140/80; PULSE 83; BMI 26.3
--- OUTSIDE RECORDS SUMMARY | 2025-02-28 15:26 | XMS_ITS | Clinical Summary ---
Author Organization [facility] Address [address] [place] [address] Care Team Providers Care Security Guard Dispatcher Name Role Phone Unavailable Primary Care Provider [...] Plan of Treatment Not on file [place] [facility] [place]
--- OUTSIDE RECORDS SUMMARY | 2025-02-28 15:26 | XMS_ITS | Clinical Summary ---
Author Organization [facility] Address [address] [place] [address] Phone Care Team Providers Care Post Framer Name Role Phone Albert Joyce MD Primary Care Provider [phone] Allergies No known active allergies Medications nitroglycerin [...] Contro l Test (HGBA1C) 09/21/2024 Influenza Vaccine (#1) 2025 , 05/01/2019 Diabetes: Annual GFR (Glomerular Filtration Rate) [...] mmol/L LAB CHEMISTRY METHOD 09/21/2024 8:14 AM [facility] Potassium 3.0(L) 3.5 - 5.5 mmol/L LAB CHEMISTRY METHOD 09/21/2024 8:14 AM [facility] Chloride 101 96 - 110 mmol/L LAB CHEMISTRY METHOD 09/21/2024 8:14 AM [facility] CO2 30 21 - 32 mmol/L LAB CHEMISTRY METHOD 09/21/2024 8:14 AM [facility] Anion Gap 5 3 - 11 LAB CHEMISTRY METHOD 09/21/2024 8:14 AM [facility] Glucose 200(H) 70 - 100 mg/dL LAB CHEMISTRY METHOD 09/21/2024 8:14 AM [facility] BUN 19 5 - 25 mg/dL LAB CHEMISTRY METHOD 09/21/2024 8:14 AM [facility] Creatinine 0.96 0.70 - 1.30 mg/dL LAB CHEMISTRY METHOD 09/21/2024 8:14 AM [facility] eGFR 90 >=60 mL/min/1. 73m2 LAB CHEMISTRY METHOD 09/21/2024 8:14 AM [facility] Comment:Calculation based on the Chronic Kidney Disease Epidemiology Collaboration (CKD-EPI) equation refit without adjustment for race. BUN/Creatinine Ratio 19.8 LAB CHEMISTRY METHOD 09/21/2024 8:14 AM [facility] Calcium 8.7 8.5 - 10.5 mg/dL LAB CHEMISTRY METHOD 09/21/2024 8:14 AM [facility] AST (SGOT) 28 10 - 42 unit/L LAB CHEMISTRY METHOD 09/21/2024 8:14 AM [facility] ALT (SGPT) 37 10 - 60 unit/L LAB CHEMISTRY METHOD 09/21/2024 8:14 AM [facility] Alkaline Phosphatase 91 42 - 121 unit/L LAB CHEMISTRY METHOD 09/21/2024 8:14 AM [facility] Total Protein 6.8 6.0 - 8.0 g/dL LAB CHEMISTRY METHOD 09/21/2024 8:14 AM [facility] Albumin 3.6 3.2 - 5.0 g/dL LAB CHEMISTRY METHOD 09/21/2024 8:14 AM [facility] Total Bilirubin 0.6 0.0 - 1.4 mg/dL LAB CHEMISTRY METHOD 09/21/2024 8:14 AM [facility] Blood Venous blood specimen / Unknown Venipuncture / Unknown 09/21/2024 7:25 AM EST 09/21/2024 7:41 AM EST us Alexi Javier MD LAB BLOOD ORDERABLES Final Result [facility] [address] [place] [address], from Last 3 Months or Most Recently Relevant to Health Maintenance Additional Health Concerns Infection Onset Date Last Indicated Coronavirus 09/21/2024 09/21/2024 Insurance [facility] [employer] Care Teams Post Framer Relationship Specialty Start Date End Date Albert Joyce MD [address] [place] [address] [address] [place] PCP - General Internal Medicine 11/28/18
== END 2025-02-28 15:24 | disposition home or self-care (01) ==
LOC: HO.HCS 14:44
DX: I25.10 Atherosclerotic heart disease of native coronary artery without angina pectoris (principal); I25.84 Coronary atherosclerosis due to calcified coronary lesion; Z98.890 Other specified postprocedural states; I10 Essential (primary) hypertension; E78.00 Pure hypercholesterolemia, unspecified; E11.9 Type 2 diabetes mellitus without complications
CPT/HCPCS: 99214; G2211

== ENCOUNTER → 2025-02-28 14:43 | Outpatient (BNVA) | payer OTHER, SELFPAY | DX: I25.10 Atherosclerotic heart disease of native coronary artery without angina pectoris (principal); Z98.890 Other specified postprocedural states; E78.00 Pure hypercholesterolemia, unspecified; I10 Essential (primary) hypertension; E11.9 Type 2 diabetes mellitus without complications | CPT/HCPCS: 99212 ==

== ENCOUNTER 2025-03-01 14:36 | Outpatient (REF) | payer OTHER, SELFPAY ==
--- NOTE | ~2025-03-01 | US_ITS ---
EXAMINATION: US LOWER EXTREMITY VEINS LIMITED FOLLOW UP RIGHT HISTORY: I82.409 - Acute embolism and thrombosis of unspecified deep veins of COMPARISON: There are no prior studies available for comparison. TECHNIQUE: Duplex and color Doppler sonographic examination of the deep venous system of the right lower extremity was performed. FINDINGS: The common femoral, superficial femoral, and popliteal veins are patent demonstrating normal compressibility, spontaneous flow, and augmentation. There is a normal color and spectral Doppler waveform appearance of the visualized deep venous system above the knee. The posterior tibial and peroneal veins are patent. US/US venous duplex LE RT IMPRESSION: No evidence of acute DVT in the right lower extremity. Electronically signed by: Ck Swan MD 03/01/2025 03:11 PM EDT
--- OUTSIDE RECORDS SUMMARY | 2025-03-01 14:38 | XMS_ITS | Clinical Summary ---
Author Organization [facility] Address [address] [place] [address] Care Team Providers Care Life Science Teacher Name Role Phone Unavailable Primary Care Provider [...] Plan of Treatment Not on file Insurance [place] [facility] [place]
--- OUTSIDE RECORDS SUMMARY | 2025-03-01 14:38 | XMS_ITS | Clinical Summary ---
Author Organization [facility] Address [address] [place] [address] Phone Care Team Providers Care Harbor Department Manager Name Role Phone Albert Joyce MD Primary Care Provider [phone] Allergies No known active allergies Medications nitroglycerin [...] 09/21/2024 8:14 AM [facility] Potassium 3.0(L) 3.5 - 5.5 mmol/L LAB CHEMISTRY METHOD 09/21/2024 8:14 AM [facility] Chloride 101 96 - [...] [facility] Comment:Calculation based on the Chronic Kidney [...] 8:14 AM [facility] Total Bilirubin 0.6 0.0 - 1.4 mg/dL LAB CHEMISTRY METHOD 09/21/2024 8:14 AM [facility] Blood Venous blood specimen / Unknown Venipuncture / Unknown 09/21/2024 7:25 AM EST 09/21/2024 7:41 AM EST us Alexi Javier MD LAB BLOOD ORDERABLES Final Result [facility] [address] [place] [address], from Last 3 Months or Most Recently Relevant to Health Maintenance Additional Health Concerns Infection Onset Date Last Indicated Coronavirus 09/21/2024 09/21/2024 Insurance [facility] [employer] Care Teams Harbor Department Manager Relationship Specialty Start Date End Date Albert Joyce MD [address] [place] [address] [address] [place] PCP - General Internal Medicine 11/28/18
== END 2025-03-01 14:37 | disposition home or self-care (01) ==
LOC: HO.US 14:36
DX: I82.401 Acute embolism and thrombosis of unspecified deep veins of right lower extremity (principal)
CPT/HCPCS: 93971

== ENCOUNTER → 2025-03-01 14:40 | Outpatient (BNV) | payer OTHER, SELFPAY | PROVIDERS: Visit Provider Radiology Diagnostic Radiology | DX: I82.401 Acute embolism and thrombosis of unspecified deep veins of right lower extremity (principal) | CPT/HCPCS: 93971 ==

== ENCOUNTER 2025-03-14 09:21 | Outpatient (AMB) | payer OTHER, SELFPAY ==
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
[2025-03-14 09:27] VITALS: BP 130/60; PULSE 79; TEMP 36.2; O2SAT 94; BMI 26.2
--- OUTSIDE RECORDS SUMMARY | 2025-03-14 09:40 | XMS_ITS | Clinical Summary ---
Author Organization [facility] Address [address] [place] [address] Phone Care Team Providers Care Admissions Assistant Name Role Phone Albert Joyce MD Primary Care Provider [phone] Allergies No known active allergies Medications nitroglycerin [...] Panel) 07/18/2022 Colorectal Cancer Screening: Colonoscopy 07/18/2022 HIV Screening 07/18/2022 Hepatitis C Screening 07/18/2022 Social Influencers of Health Screening 07/18/2022 COVID-19 Vaccine (3 - 2023-2 5 season) 2024 12/30/2020, 12/09/2020 Depression Screening 08/15/2024 Diabetes: Annual Urine Albumin-Creatinine Ratio (uACR) 09/21/2024 [...] mmol/L LAB CHEMISTRY METHOD 09/21/2024 8:14 AM [facility] Potassium 3.0(L) 3.5 - 5.5 mmol/L LAB CHEMISTRY METHOD 09/21/2024 8:14 AM [facility] Chloride 101 96 - 110 mmol/L LAB CHEMISTRY METHOD 09/21/2024 8:14 AM [facility] CO2 30 21 - 32 mmol/L LAB CHEMISTRY METHOD 09/21/2024 8:14 AM [facility] Anion Gap 5 3 - 11 LAB CHEMISTRY METHOD 09/21/2024 8:14 AM [facility] Glucose 200(H) 70 - 100 mg/dL LAB CHEMISTRY METHOD 09/21/2024 8:14 AM [facility] BUN 19 5 - 25 mg/dL LAB CHEMISTRY METHOD 09/21/2024 8:14 AM [facility] Creatinine 0.96 0.70 - 1.30 mg/dL LAB CHEMISTRY METHOD 09/21/2024 8:14 AM [facility] eGFR 90 >=60 mL/min/1. 73m2 LAB CHEMISTRY METHOD 09/21/2024 8:14 AM [facility] Comment:Calculation based on the Chronic Kidney Disease Epidemiology Collaboration (CKD-EPI) equation refit without adjustment for race. BUN/Creatinine Ratio 19.8 LAB CHEMISTRY METHOD 09/21/2024 8:14 AM [facility] Calcium 8.7 8.5 - 10.5 mg/dL LAB CHEMISTRY METHOD 09/21/2024 8:14 AM [facility] AST (SGOT) 28 10 - 42 unit/L LAB CHEMISTRY METHOD 09/21/2024 8:14 AM [facility] ALT (SGPT) 37 10 - 60 unit/L LAB CHEMISTRY METHOD 09/21/2024 8:14 AM [facility] Alkaline Phosphatase 91 42 - 121 unit/L LAB CHEMISTRY METHOD 09/21/2024 8:14 AM [facility] Total Protein 6.8 6.0 - 8.0 g/dL LAB CHEMISTRY METHOD 09/21/2024 8:14 AM [facility] Albumin 3.6 3.2 - 5.0 g/dL LAB CHEMISTRY METHOD 09/21/2024 8:14 AM [facility] Total Bilirubin 0.6 0.0 - 1.4 mg/dL LAB CHEMISTRY METHOD 09/21/2024 8:14 AM [facility] Blood Venous blood specimen / Unknown Venipuncture / Unknown 09/21/2024 7:25 AM EST 09/21/2024 7:41 AM EST us Alexi Javier MD LAB BLOOD ORDERABLES Final Result [facility] [address] [place] [address], from Last 3 Months or Most Recently Relevant to Health Maintenance Additional Health Concerns Infection Onset Date Last Indicated Coronavirus 09/21/2024 09/21/2024 Insurance [facility] Care Teams Admissions Assistant Relationship Specialty Start Date End Date Albert Joyce MD [address] [place] [address] Dr [address] [place] PCP - General Internal Medicine 11/28/18
--- OUTSIDE RECORDS SUMMARY | 2025-03-14 09:40 | XMS_ITS | Clinical Summary ---
Author Organization [facility] Address [address] [place] [address] Care Team Providers Care Camp Boss Name Role Phone Unavailable Primary Care Provider [...] Plan of Treatment Not on file Insurance [place] MEDICAID DENTAL [facility] NET [place]ENT[place] MEDICA[place]
== END 2025-03-14 09:55 | disposition home or self-care (01) ==
LOC: HO.HMCH 09:22
PROVIDERS: PCP Internal Medicine; Visit Provider Internal Medicine
DX: Z00.00 Encounter for general adult medical examination without abnormal findings (principal)

== ENCOUNTER → 2025-03-14 09:21 | Outpatient (BNVA) | payer OTHER, SELFPAY | PROVIDERS: PCP Internal Medicine; Visit Provider Internal Medicine | DX: Z00.00 Encounter for general adult medical examination without abnormal findings (principal) | CPT/HCPCS: 99396 ==

== ENCOUNTER → 2025-06-20 09:30 | Outpatient (BNVA) | payer OTHER, SELFPAY | PROVIDERS: PCP Internal Medicine; Visit Provider Internal Medicine | DX: I10 Essential (primary) hypertension (principal); F33.2 Major depressive disorder, recurrent severe without psychotic features; E11.9 Type 2 diabetes mellitus without complications; S83.91XA Sprain of unspecified site of right knee, initial encounter; X58.XXXA Exposure to other specified factors, initial encounter; Y93.9 Activity, unspecified; Y92.9 Unspecified place or not applicable; Y99.9 Unspecified external cause status | CPT/HCPCS: 83036; 99212 ==

== ENCOUNTER 2025-06-20 13:38 | Outpatient (AMB) | payer OTHER, SELFPAY ==
--- OUTSIDE RECORDS SUMMARY | 2025-06-20 10:40 | XMS_ITS | Clinical Summary ---
Author Organization [facility] Address [address] [place] [address] Care Team Providers Care Automobile Wrecker Name Role Phone Unavailable Primary Care Provider [...] Plan of Treatment Not on file Insurance [place] D[place] [facility] NET DENTAL [place] MEDICAID
--- OUTSIDE RECORDS SUMMARY | 2025-06-20 10:40 | XMS_ITS | Clinical Summary ---
Author Organization [facility] Address [address] [place] [address] Phone Care Team Providers Care Efficiency Engineer Name Role Phone Albert Joyce MD Primary Care Provider [phone] Allergies No known active allergies Medications nitroglycerin [...] Health Maintenance Due Date Last Done Comments Colorectal Cancer Screening: Colonoscopy 1962 Diabetes: Annual Foot Exam 1972 Diabetes: Annual Retina Eye Exam 1972 DTaP,Tdap,and Td Vaccines (1 - Tdap) 1981 Pneumococcal Vaccine: 50+ Years (1 of 1 - PCV) 2012 Zoster Vaccines (1 of 2) 2012 Cholesterol Screening (Lipid Panel) 07/18/2022 HIV Screening 07/18/2022 Hepatitis C Screening 07/18/2022 Social Influencers of Health Screening 07/18/2022 Depression Screening 08/15/2024 Diabetes: Annual Urine Albumin-Creatinine Ratio (uACR) 09/21/2024 Diabetes: Blood Sugar Contro l Test (HGBA1C) 09/21/2024 COVID-19 Vaccine (3 - 2024-2 6 season) 2025 12/30/2020, 12/09/2020 Influenza Vaccine (#1) 2025 , 05/01/2019 Diabetes: [...] mmol/L LAB CHEMISTRY METHOD 09/21/2024 8:14 AM [facility] Potassium 3.0(L) 3.5 - 5.5 mmol/L LAB CHEMISTRY METHOD 09/21/2024 8:14 AM [facility] Chloride 101 96 - 110 mmol/L LAB CHEMISTRY METHOD 09/21/2024 8:14 AM [facility] CO2 30 21 - 32 mmol/L LAB CHEMISTRY METHOD 09/21/2024 8:14 AM [facility] Anion Gap 5 3 - 11 LAB CHEMISTRY METHOD 09/21/2024 8:14 AM [facility] Glucose 200(H) 70 - 100 mg/dL LAB CHEMISTRY METHOD 09/21/2024 8:14 AM [facility] BUN 19 5 - 25 mg/dL LAB CHEMISTRY METHOD 09/21/2024 8:14 AM [facility] Creatinine 0.96 0.70 - 1.30 mg/dL LAB CHEMISTRY METHOD 09/21/2024 8:14 AM [facility] eGFR 90 >=60 mL/min/1. 73m2 LAB CHEMISTRY METHOD 09/21/2024 8:14 AM [facility] Comment:Calculation based on the Chronic Kidney Disease Epidemiology Collaboration (CKD-EPI) equation refit without adjustment for race. BUN/Creatinine Ratio 19.8 LAB CHEMISTRY METHOD 09/21/2024 8:14 AM [facility] Calcium 8.7 8.5 - 10.5 mg/dL LAB CHEMISTRY METHOD 09/21/2024 8:14 AM [facility] AST (SGOT) 28 10 - 42 unit/L LAB CHEMISTRY METHOD 09/21/2024 8:14 AM [facility] ALT (SGPT) 37 10 - 60 unit/L LAB CHEMISTRY METHOD 09/21/2024 8:14 AM [facility] Alkaline Phosphatase 91 42 - 121 unit/L LAB CHEMISTRY METHOD 09/21/2024 8:14 AM [facility] Total Protein 6.8 6.0 - 8.0 g/dL LAB CHEMISTRY METHOD 09/21/2024 8:14 AM [facility] Albumin 3.6 3.2 - 5.0 g/dL LAB CHEMISTRY METHOD 09/21/2024 8:14 AM [facility] Total Bilirubin 0.6 0.0 - 1.4 mg/dL LAB CHEMISTRY METHOD 09/21/2024 8:14 AM [facility] Blood Venous blood specimen / Unknown Venipuncture / Unknown 09/21/2024 7:25 AM EST 09/21/2024 7:41 AM EST us Alexi Javier MD LAB BLOOD ORDERABLES Final Result [facility] [address] [place] [address], from Last 3 Months or Most Recently Relevant to Health Maintenance Additional Health Concerns Infection Onset Date Last Indicated Coronavirus 09/21/2024 09/21/2024 Insurance [facility] Care Teams Efficiency Engineer Relationship Specialty Start Date End Date Albert Joyce MD [address] [place] [address] Dr [address] [place], [place] PCP - General Internal Medicine 11/28/18
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
[2025-06-20 13:45] VITALS: BP 132/70; PULSE 84; RESP 18; TEMP 36.6; O2SAT 96; BMI 26.5
== END 2025-06-20 14:21 | disposition home or self-care (01) ==
PROVIDERS: PCP Internal Medicine; Visit Provider Internal Medicine
DX: E11.9 Type 2 diabetes mellitus without complications (principal)

== ENCOUNTER 2025-06-27 07:42 | Outpatient (REF) | payer OTHER, SELFPAY ==
--- OUTSIDE RECORDS SUMMARY | 2025-06-27 07:45 | XMS_ITS | Clinical Summary ---
Author Organization [facility] Address [address] [place] [address] Care Team Providers Care Comic Illustrator Name Role Phone Unavailable Primary Care Provider [...] Plan of Treatment Not on file [place] [facility] [place]
--- OUTSIDE RECORDS SUMMARY | 2025-06-27 07:45 | XMS_ITS | Clinical Summary ---
Author Organization [facility] Address [address] [place] [address] Phone Care Team Providers Care It Administrative Assistant Name Role Phone Albert Joyce MD Primary Care Provider [phone] Allergies No known active allergies Medications nitroglycerin [...] Javier MD LAB BLOOD ORDERABLES Final Result [facility] [address] [place] [address], from Last 3 Months or Most Recently Relevant to Health Maintenance Additional Health Concerns Infection Onset Date Last Indicated Coronavirus 09/21/2024 09/21/2024 Insurance [facility] Care Teams It Administrative Assistant Relationship Specialty Start Date End Date Albert Joyce MD [address] [place] [address] Dr [address] [place], [place] PCP - General Internal Medicine 11/28/18
[2025-06-27 08:15] LABS: Hematocrit 50.7 % (42.0-52.0); Hemoglobin 16.8 g/dl (14.0-18.0); Mean Corpuscular HGB Conc 33.1 g/dl (31.0-36.0); Mean Corpuscular Hemoglobin 27.9 pg (27.0-33.0); Mean Corpuscular Volume 84.1 fL (80.0-98.0); NRBC Abs Auto 0.000 X10*3/uL (0.0-0.012); NRBC Pct Auto 0.0 /100WBC (0.0-0.2); Platelet Count 267 X10*3/uL (160-400); Red Blood Count 6.03 X10*6/uL (4.60-5.80); White Blood Count 9.3 X10*3/uL (4.8-10.8)
[2025-06-27 08:33] LABS: Appearance Urine Clear; Glucose Urine UA >=1000 mg/dL (Negative); PH 6.0 (5.0-9.0); Specific Gravity - Urine >= 1.030 (1.005-1.025); UMIC TRIGGER UA YES
[2025-06-27 09:22] LABS: Microalbum/Creatinine Ratio Ur 4.4 ug/mg cr (<30)
[2025-06-27 12:19] LABS: Alanine Aminotransferase 53 U/L (0-40); Albumin Level 4.7 g/dL (3.5-5.0); Alkaline Phosphatase 109 U/L (39-117); Anion Gap 11 (12-20); Aspartate Amino Transferase 48 U/L (5-37); Blood Urea Nitrogen 19 mg/dL (9-16); Calcium 8.9 mg/dL (8.4-10.2); Carbon Dioxide 30 mmol/L (22-29); Chloride 103 mmol/L (96-108); Cholesterol 90 mg/dL (<200); Estimated Glomerular Filt Rate > 60; HDL Cholesterol 39 mg/dL (>40); Potassium 4.4 mmol/L (3.3-5.1); Sodium 140 mmol/L (135-145); Total Protein 7.3 g/dL (6.5-8.0); Triglycerides 72 mg/dL (<150)
[2025-06-27 12:38] LABS: Thyroid Stimulating Hormone 1.72 uIU/mL (0.32-4.0)
== END 2025-06-27 07:43 | disposition home or self-care (01) ==
LOC: HO.LAB 07:42
PROVIDERS: PCP Internal Medicine; Visit Provider Internal Medicine
DX: F33.2 Major depressive disorder, recurrent severe without psychotic features (principal); I10 Essential (primary) hypertension
CPT/HCPCS: 36415; 80048; 80061; 80076; 81001; 82043; 82570; 83036; 84153; 84443; 85027